=== PATIENT | female | born 1980 | race Caucasian/White ===

== ENCOUNTER 2022-04-08 23:08 | Emergency (ER) | payer BC, SELFPAY ==
[2022-04-08 23:10] VITALS: BP 134/92; PULSE 84; RESP 18; TEMP 36.9; O2SAT 100; BMI 45.7
--- NOTE | 2022-04-08 23:33 | HMH.EDWNDL ---
ED Disposition Clinical Impression: Laceration of finger Qualifiers: Encounter type: initial encounter Finger: index finger Damage to nail status: without damage Foreign body presence: without foreign body Laterality: right Qualified Code(s): S61.210A - Laceration without foreign body of right index finger without damage to nail, initial encounter Disposition: Home, Self-Care Condition on Discharge: Good Instructions: DI for Laceration Repair Additional Instructions: sutures out 10-12 days and recheck if needed prior and may need hand surg Prescriptions: cephALEXin [cephALEXin 500mg capsule*] 500 mg PO TID #30 cap Transmission Status: Pending to [employer] #[id number] - Critical Care Critical Care Time: No Attestation: On , the high probability of a clinically significant, sudden or life threatening deterioration of the following system(s) required my full and direct attention, intervention and personal management. The time I documented below is in addition to time spent performing reported procedures but includes the following listed in this critical care notation. Medical Decision Making - Medical Records Medical records reviewed: Yes: I reviewed the patient's medical records. - Jeremy Inquiry Pt receiving controlled substance: No Vital Signs: 04/08/22 23:10 Temperature 98.4 F Temperature Source Oral Pulse Rate [Right] 84 Respiratory Rate 18 Blood Pressure [Right Arm] 134/92 H Blood Pressure Mean [Right Arm] 106 02 Sat by Pulse Oximetry 100 Oxygen Delivery Method Room Air Wound/Laceration HPI - General Chief Complaint: Wound/Laceration Stated Complaint: AO 04/08/22 Laceration Right Index finger Time Seen by Provider: 04/08/22 23:34 Mode of Arrival: Ambulatory Source of Information: Patient, Spouse, Medical Record Limitations: No Limitations Description of Symptoms (Recalled from ER Triage Doc. by RN): pt arrived with right index finger in compression wrap after she states she grated off the knuckle with a cheese grater. bleeding uncontrolled - History of Present Illness HPI narrative: lac rt index finger tonight Onset (ago): hour(s) Extremity Location: Right: hand Place: home Patient tetanus UTD: No Context: sharp object use Associated symptoms: none - Related Data Previous Rx's Medication Instructions Recorded cephALEXin [cephALEXin 500mg 500 mg PO TID #30 cap 04/09/22 capsule*] Allergies Allergy/AdvReac Type Severity Reaction Status Date / Time No Known Allergies Allergy Verified 04/08/22 23:35 [facility] History - Hepatitis A Screen Attestation statement:: This patient has been screened for Hepatitis A risk factors. I have reviewed the patient's past medical history: Yes ROS Obtained: Yes All systems reviewed & no additional complaints - Constitutional Constitutional: Denies fever(s) - Eyes Eyes: Denies change in vision - ENT Ears, Nose, Mouth, and Throat: Denies sore throat - Cardiovascular Cardiovascular: Denies chest pain - Respiratory Respiratory: Denies shortness of breath - Gastrointestinal Gastrointestingal: Denies: abdominal pain - Genitourinary Female Genitourinary: Denies hematuria - Musculoskeletal Musculoskeletal: Denies joint pain, Denies joint swelling - Integumentary/Breasts Skin/Breast: Reports as per HPI, Denies rash - Neurologic Neurologic: Reports other (laceration) Physical Exam - General General appearance: alert - Head Head exam: normocephalic - Eye Eye exam: Present: PERRL, EOMI - ENT ENT exam: Present: mucous membranes moist - Neck Neck exam: Present: trachea midline - Respiratory Respiratory exam: Absent: respiratory distress - Cardiovascular Cardiovascular exam: Present: regular rate - Abdominal Exam Abdominal exam: Present: soft - Extremities Exam Extremities exam: Present: full ROM - Neurological Exam Neurological exam: Present: alert, CN II-XII intact - Psychiatric
[2022-04-09 00:32] VITALS: BP 134/92; PULSE 84; RESP 16; TEMP 36.8; O2SAT 98
== END 2022-04-09 00:37 | disposition home or self-care (01) ==
PROVIDERS: Emergency Provider Emergency Medicine; PCP Internal Medicine
DX: S61.210A Laceration without foreign body of right index finger without damage to nail, initial encounter (principal); W27.4XXA Contact with kitchen utensil, initial encounter; Z23 Encounter for immunization
CPT/HCPCS: 64450; 90471; 90714; 99284

== ENCOUNTER 2022-10-15 13:14 | Emergency (ER) | payer BC, SELFPAY ==
[2022-10-15 13:28] VITALS: BP 152/108; PULSE 78; RESP 17; TEMP 36.6; O2SAT 97; BMI 45.7
--- NOTE | 2022-10-15 13:44 | PC.NURSE ---
DR. CUEVAS AT BEDSIDE
--- NOTE | 2022-10-15 13:48 | XR_ITS ---
FINAL REPORT CLINICAL HISTORY: lightheaded FINDINGS: PORTABLE CHEST The heart is normal in size. The mediastinum is unremarkable. The lungs are clear. There is no pneumothorax. IMPRESSION: No acute process. Reviewed, Interpreted and Dictated by Brenda Buckley MD Transcribed by Tamara Link Authenticated and [facility]
--- NOTE | 2022-10-15 13:50 | HMH.EDGENADL ---
Discharge Plan Disposition Chief Complaint: Dizziness Prescriptions Prescriptions: No Action cephalexin 500 MG capsule 500 mg PO TID Qty: 30 0RF Discharge ED Provider: Will Packer General Adult HPI General Chief complaint: Dizziness Stated complaint: dizzy Time Seen by Provider: 10/15/22 13:42 Mode of Arrival: EMS Source of Information: Patient Limitations: No Limitations Description of Symptoms (Recalled from ER Triage Doc. by RN): PT BROUGHT IN VIA EMS FOR DIZZINESS WHILE DRIVING, PT STATES SHE WAS LIGHTHEADED WHILE DRIVING, PULLED OVER AND CALLED EMS. PT HAS BEEN TAKING OTC MEDS FOR CONGESTION History of Present Illness HPI narrative: Patient presents complaining of feeling lightheaded that began while she was driving shortly prior to ED presentation. She denies weakness she denies chest pain or headache or dyspnea. She has been taking zani-bug-zhfvcry medications recently for URI symptoms. Is been no recent fever. Denies vomiting or diarrhea she denies hematuria dysuria. Related Data Previous Rx's Medication Instructions Recorded cephalexin 500 mg capsule 500 mg PO TID #30 caps 04/09/22 Allergies Allergy/AdvReac Type Severity Reaction Status Date / Time No Known Allergies Allergy Verified 04/08/22 23:35 [facility] Social History Smoking Status: Never smoker ROS Obtained: Yes All systems reviewed & no additional complaints except as documented Physical Exam General General appearance: alert and in no apparent distress Head Head exam: atraumatic, normocephalic and normal inspection Eye Eye exam: Present normal appearance, PERRL and EOMI ENT ENT exam: Present normal exam, normal oropharynx, mucous membranes moist, TM's normal bilaterally and normal external ear exam Neck Neck exam: Present normal inspection, full ROM and trachea midline; Absent meningismus or lymphadenopathy Chest Chest inspection: Present normal inspection and symmetric chest wall rise; Absent tenderness Respiratory Respiratory exam: Present normal lung sounds bilaterally; Absent respiratory distress Cardiovascular Cardiovascular exam: Present regular rate and normal rhythm; Absent JVD Abdominal Exam Abdominal exam: Present soft and normal bowel sounds; Absent distention, tenderness or guarding Extremities Exam Extremities exam: Present normal inspection, full ROM and normal capillary refill; Absent calf tenderness Back Exam Back exam: Present normal inspection; Absent tenderness Neurological Exam Neurological exam: Present alert and oriented X3 Psychiatric Psychiatric exam: Present normal affect and normal mood Skin Skin exam: Present warm, dry, intact and normal color Lymphatic Lymphatic Findings: no adenopathy Medical Decision Making Medical Records Medical records reviewed: Yes I reviewed the patient's medical records. Jeremy Inquiry Pt receiving controlled substance: No Vital Signs: 10/15/22 13:28 Temperature 97.9 F Temperature Source Oral Pulse Rate [Radial] 78 Respiratory Rate 17 Blood Pressure [Right Arm] 152/108 H Blood Pressure Mean [Right Arm] 122 Blood Pressure Source [Right Arm] Automatic Cuff Blood Pressure Position [Right Arm] Sitting 02 Sat by Pulse Oximetry 97 Oxygen Delivery Method Room Air Orders (Tests/Meds): ORDERS Category Date Time Status CXR --portable [XR chest portable] Stat Exams 10/15/22 13:48 Ordered CBC w/Auto Diff [Complete Blood Count Auto Diff] Stat Lab 10/15/22 13:48 Ordered CMP [Comprehensive Metabolic Panel] Stat Lab 10/15/22 13:48 Ordered POC Glucose,Bedside Stat Lab 10/15/22 13:48 Ordered Thyroid Panel Stat Lab 10/15/22 13:48 Ordered Trop I [Troponin I] Stat Lab 10/15/22 13:48 Ordered Troponin I Q3H Lab 10/15/22 17:00 Ordered Troponin I Q3H Lab 10/15/22 20:00 Ordered Critical Care Time Critical Care Time Critical Care Time: No Attestation: On , the high probability of a clinically sign
--- NOTE | 2022-10-15 13:55 | PC.NURSE ---
XR AT BEDSIDE
[2022-10-15 14:00] VITALS: BP 143/97; PULSE 82; O2SAT 98
--- NOTE | 2022-10-15 14:00 | PC.NURSE ---
pt requesting water. Dr. Ochoa villavicencio'd that. She has no other needs at this time.
--- NOTE | 2022-10-15 14:19 | ECG_ITS ---
APPROVED REPORT Exam: Resting ECG HR:83 bpm ECG Measurements Heart Rate 83 AXES QRSd 90 QRS 65 QT 378 T 36 QTc 417 Conclusion NSR with short PA interval NONSPECIFIC T-WAVE ABNORMALITY ABNORMAL RHYTHM ECG UNCONFIRMED REPORT Electronically signed by : Papito Deleon MD 10/15/2022 21:08:47
[2022-10-15 14:24] LABS: Basophils # 0.1 K/mm3 (0-0.2); Basophils % 1.1 % (0.1-2.0); Eosinophils # 0.1 K/mm3 (0.0-0.4); Eosinophils % 1.4 % (0.1-12.0); Hematocrit 45.1 % (37.0-47.0); Hemoglobin 14.4 g/dL (12.2-16.2); Lymphocytes # 1.7 K/mm3 (0.7-4.5); Lymphocytes % 19.7 % (10-50); Mean Corpuscular HGB Conc 31.9 g/dL (31.8-35.4); Mean Corpuscular Hemoglobin 25.9 pg (27.0-31.2); Mean Corpuscular Volume 81.4 fl (81-99); Mean Platelet Volume 6.8 fl (7.4-10.4); Monocytes # 0.4 K/mm3 (0.1-1.0); Monocytes % 4.9 % (1.7-9.3); Neutrophils # 6.2 K/mm3 (1.8-7.8); Platelet Count 365 K/mm3 (142-424); Red Blood Count 5.54 M/mm3 (4.20-5.40); Red Cell Distribution Width 14.2 % (11.5-17.5); White Blood Count 8.5 K/mm3 (4.8-10.8)
[2022-10-15 14:28] LABS: Chloride 100 mmol/L (98-107); Potassium 4.4 mmoL/L (3.5-5.1); Sodium 138 mmol/L (136-145)
[2022-10-15 14:31] LABS: Alanine Aminotransferase 27 U/L (12-78); Albumin Level 4.7 g/dl (3.5-5.0); Albumin/Globulin Ratio 1.3 (1.1-1.8); Alkaline Phosphatase 127 U/L (38-126); Anion Gap 9.4 mEq/L (5-15); Aspartate Amino Transferase 33 U/L (14-36); Bilirubin,Total 0.3 mg/dl (0.2-1.3); Blood Urea Nitrogen 19 mg/dl (7-17); Calcium 9.8 mg/dl (8.4-10.2); Carbon Dioxide 33 mmol/L (22.0-30.0); Creatinine Clearance Estimated 84 mL/min (50-200); Estimated Glomerular Filt Rate 93 ml/min (>60); GFR (African American) 112 ML/MIN (>60); Globulin 3.7 g/dL (1.3-3.2); Glucose 90 mg/dl (74-100); Total Protein,Serum 8.4 g/dl (6.3-8.2)
[2022-10-15 14:49] LABS: Triiodothryronine (T3) Uptake 33 % (23.5-40.5); Troponin I < 0.01 ng/ml (0.00-0.034)
[2022-10-15 14:50] LABS: Free Thyroxine Index 4.4 ug/dL (5.93-13.13); T4 (Thyroxine) 13.2 ug/dl (5.53-11.0)
--- NOTE | 2022-10-15 15:02 | PC.NURSE ---
DR. CUEVAS AT BEDSIDE TO DISCUSS POC WITH PT AND FAMILY
[2022-10-15 15:03] LABS: Thyroid Stimulating Hormone 5.18 uIU/mL (0.465-4.68)
[2022-10-15 15:25] LABS: D-Dimer 0.61 ug/mL (0.0-0.5)
--- NOTE | 2022-10-15 15:40 | CT_ITS ---
PROCEDURE INFORMATION: Exam: CT Head Without Contrast Exam date and time: 10/15/2022 4:20 PM Age: 42 years old Clinical indication: Dizziness; Additional info: Dizzy TECHNIQUE: Imaging protocol: Computed tomography of the head without contrast. Radiation optimization: All CT scans at this facility use at least one of these dose optimization techniques: automated exposure control; mA and/or kV adjustment per patient size (includes targeted exams where dose is matched to clinical indication); or iterative reconstruction. COMPARISON: No relevant prior studies available. FINDINGS: Brain: Normal. No hemorrhage. Unremarkable white matter. No mass effect. Cerebral ventricles: No ventriculomegaly. Paranasal sinuses: Mild mucoperiosteal thickening of the paranasal sinuses. Mastoid air cells: Visualized mastoid air cells are well aerated. Bones/joints: Unremarkable. No acute fracture. Soft tissues: Unremarkable. IMPRESSION: Mild mucoperiosteal thickening of the paranasal sinuses but no evidence of acute intracranial pathology.
--- NOTE | 2022-10-15 15:40 | CT_ITS ---
PROCEDURE INFORMATION: Exam: CTA Chest With Contrast Exam date and time: 10/15/2022 4:24 PM Age: 42 years old Clinical indication: Other: Elevated d-dimer and troponin; Additional info: Dizzy TECHNIQUE: Imaging protocol: Computed tomographic angiography of the chest with contrast. 3D rendering (Not supervised by radiologist): MIP and/or 3D reconstructed images were created by the technologist. Radiation optimization: All CT scans at this facility use at least one of these dose optimization techniques: automated exposure control; mA and/or kV adjustment per patient size (includes targeted exams where dose is matched to clinical indication); or iterative reconstruction. Contrast material: ISOVUE; Contrast volume: 70 ml; Contrast route: INTRAVENOUS (IV); COMPARISON: CR XR CHEST PORTABLE 10/15/2022 2:07 PM FINDINGS: Pulmonary arteries: Pulmonary vasculature is adequately opacified without filling defects or other evidence of acute pulmonary embolism. Aorta: Unremarkable. No aortic aneurysm. No aortic dissection. Lungs: Paragraphs lung volumes mildly decreased due to body habitus. There are mild hypoventilatory changes at the lung bases. Pleural spaces: Unremarkable. No pneumothorax. No pleural effusion. Heart: Heart is borderline enlarged. No significant coronary artery calcifications. Lymph nodes: Unremarkable. No enlarged lymph nodes. Bones/joints: Unremarkable. No acute fracture. Soft tissues: Unremarkable. IMPRESSION: Negative CT angiogram of the chest. No evidence of acute pulmonary embolism.
[2022-10-15 16:01] LABS: HCG Qualitative, Serum Negative (Negative)
--- NOTE | 2022-10-15 16:20 | PC.NURSE ---
Pt to CT
--- NOTE | 2022-10-15 17:19 | PC.NURSE ---
Rounded on pt at this time. Updated pt and SO that CT results were not back yet. PT agreeable with POC and has no new needs.
--- NOTE | 2022-10-15 17:34 | PC.NURSE ---
ED MD AT BEDSIDE TO DISCUSS POC AND DISCHARGE
[2022-10-15 17:35] VITALS: BP 132/85; PULSE 80; RESP 17; TEMP 36.7; O2SAT 98
== END 2022-10-15 17:30 | disposition home or self-care (01) ==
PROVIDERS: Emergency Provider Emergency Medicine; PCP Internal Medicine
DX: R42 Dizziness and giddiness (principal); R01.1 Cardiac murmur, unspecified
CPT/HCPCS: 70450; 71045; 71275; 80053; 84436; 84443; 84479; 84484; 84703; 85025; 85378; 93005; 99285; Q9967

== ENCOUNTER 2023-11-18 19:59 | Observation (INO) | payer BC, SELFPAY ==
[2023-11-18 20:00] VITALS: BP 140/92; PULSE 98; RESP 17; TEMP 36.7; O2SAT 99; BMI 43.9
--- OUTSIDE RECORDS SUMMARY | 2023-11-18 20:06 | XMS_ITS | Patient Health Record ---
Author Name Unknown Organization [facility] Address [address] [place] [address] Care Team Providers Care [employer] Carpenter Name Role Phone Sherly Ramachandran Primary Care Provider Unavailabl e ALLERGIES Allergen (clinical drug ingredient) Drug/Non Drug Allergy documented on EMR Reaction Allergy Type Onset Date Status No Known Drug Allergy Unknown Drug Allergy Active REASON FOR REFERRAL No Information MEDICATIONS Medication SIG (Take, Route, Frequency, Duration) Notes Start Date End Date Status Synthroid Active Atorvastatin Calcium Active predniSONE 10 MG Day 1= 6 tab(s), Day 2 = 5 tab(s), Day 3 = 4tab(s), Day 4 = 3 tab(s), Day 5 = 2 tab(s), Day 6 = 1 tab orally once a day for 6 day(s) 03/03/2019 Not-Taking Wellbutrin SR Active Dexbrompheniramine-Pheny leph 2-10 MG 5 ml orally 4 times a day for 10 days 03/03/2019 Not-Taking Azithromycin 250 MG 2 tablets on the day, then 1 tablet daily for 4 days orally once a day for 5 days 03/03/2019 Not-Taking Fluticasone Propionate 50 MCG/ACT 50 mcg intranasally once a day for 30 day(s) 03/03/2019 Not-Taking IMMUNIZATIONS Vaccine Route Administration Date Status Comme [facility] z2022 FluBLOK Quad PFS (0.5m L Admin) 18 y/o & older Unknown 10/19/2022 Administered SOCIAL HISTORY Sex Assigned At : Social History Observation Description Sex Assigned At Unknown PROBLEMS Problem Type ICD Code Onset Dates Problem Status W/U Status Risk SNOMED Code Notes Problem Sinusitis (J32.9) Active confirmed Sinusitis (24778864) PLAN OF TREATMENT Pending Test Test Name Order Date Urinalysis(IH) 05/30/2010 Insurance Providers Payer Name Payer Address Payer Phone Subscriber Number Group Number Insured Name Patient Relationship to Insured Coverage Start Date Coverage End Date [employer] [facility] [address] [place] [address] [id number] Judit Kelly Self - patient is the insured MEDICATIONS ADMINISTERED Medication Instructions Date of Administration Dosage Notes Kenalog 40 (40mg Admin) 05/26/2018 1 mL MEDICAL (GENERAL) HISTORY Medical History History ICD Code None Surgical History Surgery Date(Month/Year) none Hospitalization History Reason Date(Month/Year) concussion at age 12yrs
[2023-11-18 20:30] VITALS: BP 131/86; PULSE 95; O2SAT 98
[2023-11-18 21:01] VITALS: BP 115/60; PULSE 87; O2SAT 97
--- NOTE | 2023-11-18 21:12 | US_ITS ---
PROCEDURE INFORMATION: Exam: US , Transvaginal Exam date and time: 11/18/2023 10:56 PM Age: 43 years old Clinical indication: Lmp or gestational age (in weeks): 10w; Antepartum complications; ; Patient HX: [facility] 13,000=--crmaping and bleeding today; Additional info: Unknown preg location/vag bleeding LABS AND CLINICAL REPORTS: Last menstrual period start date: 09/11/2023 Gestational age (Established): 9 w 5 d Estimated due date (Established): 06/17/2024 TECHNIQUE: Imaging protocol: Real-time transvaginal obstetrical ultrasound of the maternal pelvis with image documentation. Transvaginal imaging was used for better evaluation of the fetus, adnexa, and/or cervix. COMPARISON: No relevant prior studies available. FINDINGS: Gestation: No intrauterine gestational sac, pole or yolk sac identified. Large amount of active bleeding and clot within the endometrium consistent with missed . MATERNAL: Uterus: Uterine fibroid. Right ovary/adnexa: Right ovary measures 3.45 cm x 2.22 cm x 3.29 cm. Right ovarian volume is 13.19 mL. Right ovary shows normal vascularity. No mass. Left ovary/adnexa: Left ovary measures 3.85 cm x 3.17 cm x 2.38 cm. Left ovarian volume is 15.21 mL. Left ovary shows normal vascularity. No mass. Intraperitoneal space: No free fluid. IMPRESSION: 1. Within the endometrial canal there is a large amount of active bleeding and clot consistent with missed . No intrauterine gestational sac, pole or yolk sac. 2. No free fluid. 3. Ovaries normal
--- NOTE | 2023-11-18 21:12 | ED_ITS ---
Discharge Plan Disposition Patient Disposition: Admitted Chief Complaint: Vaginal Bleeding Prescriptions Prescriptions: No Action cephalexin 500 MG capsule 500 mg PO TID Qty: 30 0RF Clinical Impressions Clinical Impression: Missed , Vaginal bleeding, Pelvic pain Discharge ED Provider: Mason Zamora General Adult HPI <Mason Zamora MD - Last Filed: 11/18/23 22:54> General Chief complaint: Vaginal Bleeding Stated complaint: 10 weeks preg, vaginal bleeding Time Seen by Provider: 11/18/23 20:21 Mode of Arrival: Ambulatory Source of Information: Patient Limitations: No Limitations Description of Symptoms (Recalled from ER Triage Doc. by RN): Patient reports cramping / that started this evening. Patient is approximately 10 weeks . Seen by OB on November 04 with a planned follow up ultrasound on Nov 20. Patient reports bright red bleeding that is moderate requiring the use of a pad at this time. Patient states she has had a misscarriage before and came in due to the pain at this time. History of Present Illness HPI narrative: Patient is a 43-year-old female EGA 10 weeks who presents emergency department for evaluation of vaginal bleeding. Onset was acute, earlier today, passage of clots. She was seen by an OB in early October with [facility] who had concerns that growth was not progressing as expected. She does have crampy lower abdominal pain with the passage of these clots. No other acute complaints at this time. Related Data Previous Rx's Medication Instructions Recorded cephalexin 500 mg capsule 500 mg PO TID #30 caps 04/09/22 Allergies Allergy/AdvReac Type Severity Reaction Status Date / Time No Known Allergies Allergy Verified 04/08/22 23:35 PFSH <Mason Zamora MD - Last Filed: 11/18/23 22:54> [facility] Disclaimer: The information contained in this section may have been updated after the patient was seen, as this information can be updated by other users. Social History (Updated 11/18/23 @ 22:54 by Mason Zamora MD) Smoking Status: Never smoker alcohol intake: never current occupational status: other Travel in the last 8 weeks: None <Mason Zamora MD - Last Filed: 11/18/23 22:54> ROS Obtained: Yes Systems reviewed as appropriate & no additional complaints except as documented Physical Exam <Mason Zamora MD - Last Filed: 11/18/23 22:54> General General appearance: alert and in no apparent distress Head Head exam: atraumatic and normocephalic Eye Eye exam: Present PERRL and EOMI ENT ENT exam: Present mucous membranes moist Neck Neck exam: Present normal inspection Chest Chest inspection: Present normal inspection and symmetric chest wall rise Respiratory Respiratory exam: Absent respiratory distress Cardiovascular Cardiovascular exam: Present regular rate and normal rhythm Abdominal Exam Abdominal exam: Present soft; Absent tenderness Extremities Exam Extremities exam: Present normal inspection Neurological Exam Neurological exam: Present alert Psychiatric Psychiatric exam: Present normal affect Skin Skin exam: Present warm and dry Medical Decision Making <Mason Zamora MD - Last Filed: 11/18/23 22:54> Jeremy Inquiry Pt receiving controlled substance: No Vital Signs: 11/18/23 20:00 11/18/23 20:30 11/18/23 21:01 Temperature 98.0 F Temperature Source Oral Pulse Rate 95 H 87 Pulse Rate [Left Radial] 98 H Respiratory Rate 17 Blood Pressure 131/86 115/60 Blood Pressure [Right Arm] 140/92 H Blood Pressure Mean Blood Pressure Mean [Right Arm] 108 Blood Pressure Source [Right Arm] Automatic Cuff Blood Pressure Position [Right Arm] Sitting 02 Sat by Pulse Oximetry 99 98 97 Oxygen Delivery Method Room Air Room Air 11/19/23 01:12 Temperature Temperature Source Pulse Rate 77 Pulse Rate [Left Radial] Respiratory Rate 20 Blood Pressure 141/89 H Blood Pressure [Right Arm] Blood Pressure Mean 101 Blood Pressure Mean [Right Arm] Blood Pressure Source [Right Arm] Blood Pressure Position [Right Arm] 02 Sat by Pulse Oximetry 98 Oxygen Delivery Method Room Air Lab Data Lab Results 11/18/23 21:20: WBC 7.7, RBC 5.51 H, Hgb 14.6, Hct 44.2, MCV 80.2 L, MCH 26.5 L, MCHC 33.1, RDW 15.1, Plt Count 326, MPV 7.1 L, Neut % (Auto) 70.0, Lymph % (Auto) 22.1, [place] % (Auto) 5.6, Eos % (Auto) 1.4, Baso % (Auto) 0.9, Neut # (Auto) 5.4, Lymph # (Auto) 1.7, [place] # (Auto) 0.4, Eos # (Auto) 0.1, Baso # (Auto) 0.1, Sodium 139, Potassium 4.5, Chloride 105, Carbon Dioxide 22, Anion Gap 16.5 H, BUN 14, Creatinine 1.00, Estimated Creat Clear 59, Estimated GFR 61, Est GFR ( Amer) 74, Glucose 86, Calcium 9.6, Total Bilirubin 0.5, AST 43 H, ALT 29, Alkaline Phosphatase 111, Total Protein 8.3 H, Albumin 4.9, Globulin 3.4 H, Albumin/Globulin Ratio 1.4, HCG, Quant [id number] H 11/18/23 21:30: Urine Color [place], Urine Appearance Sl cloudy, Urine pH 5.5, Ur Specific [place] 1.010, Urine Protein 1+, Urine Glucose (UA) Negative, Urine Ketones Negative, Urine Blood 3+, Urine Nitrate Negative, Urine Bilirubin Negative, Urine Urobilinogen 0.2, Ur Leukocyte Esterase Negative, Urine RBC Tntc, Urine WBC None, Ur Squamous Epith Cells 3-5, Urine Bacteria None 11/18/23 21:20 11/18/23 21:20 Orders (Tests/Meds): ED MEDICATIONS Discontinued Medications Generic Name Dose Route Start Last Admin Trade Name Freq PRN Reason Stop Dose Admin Acetaminophen 1,000 mg 11/19/23 00:37 11/19/23 00:42 Acetaminophen 500mg Tab PO 11/19/23 00:38 1,000 mg ONCE ONE Administration Ketorolac Tromethamine 15 mg 11/19/23 01:48 Ketorolac 30mg/Ml Vial IV 11/19/23 01:49 ONCE ONE Morphine Sulfate 4 mg 11/19/23 01:48 Morphine 4mg/Ml Syringe IV 11/19/23 01:49 ONCE ONE Oxycodone HCl 5 mg 11/19/23 01:08 11/19/23 01:24 Oxycodone 5mg Immediate Release Tablet PO 11/19/23 01:09 5 mg ONCE ONE Administration ORDERS Category Date Time Status CBC w/Auto Diff [Complete Blood Count Auto Diff] Stat Lab 11/18/23 21:20 Completed CMP [Comprehensive Metabolic Panel] Stat Lab 11/18/23 21:20 Completed HCG,Quantitative Stat Lab 11/18/23 21:20 Completed UA [Urinalysis and Microscopic] Stat Lab 11/18/23 21:30 Completed US OB transvaginal Stat Ultrasound 11/18/23 21:12 Completed Medical Decision Narrative: In summary patient is a 43-year-old female with past medical history described above presents emergency department for evaluation of vaginal bleeding. Patient is hemodynamically stable nontoxic-appearing upon arrival, afebrile. Differential diagnosis includes threatened , spontaneous miscarriage, among others. Patient is O+ and does not require RhoGAM. Workup was conducted with hematologic labs, urinalysis, quant hCG followed by transvaginal ultrasound for location. Initial workup reviewed by me, hematologic labs show no leukocytosis, no acute anemia, hCG 13,200, urinalysis shows red blood cells in the setting of vaginal bleeding, interpreted by me and not consistent with infection. Transvaginal ultrasound was pending at time of transition of care to the oncoming physician, Dr. Calabrese. <Glory Calabrese MD - Last Filed: 11/19/23 02:00> Vital Signs: 11/18/23 20:00 11/18/23 20:30 11/18/23 21:01 Temperature 98.0 F Temperature Source Oral Pulse Rate 95 H 87 Pulse Rate [Left Radial] 98 H Respiratory Rate 17 Blood Pressure 131/86 115/60 Blood Pressure [Right Arm] 140/92 H Blood Pressure Mean Blood Pressure Mean [Right Arm] 108 Blood Pressure Source [Right Arm] Automatic Cuff Blood Pressure Position [Right Arm] Sitting 02 Sat by Pulse Oximetry 99 98 97 Oxygen Delivery Method Room Air Room Air 11/19/23 01:12 Temperature Temperature Source Pulse Rate 77 Pulse Rate [Left Radial] Respiratory Rate 20 Blood Pressure 141/89 H Blood Pressure [Right Arm] Blood Pressure Mean 101 Blood Pressure Mean [Right Arm] Blood Pressure Source [Right Arm] Blood Pressure Position [Right Arm] 02 Sat by Pulse Oximetry 98 Oxygen Delivery Method Room Air Lab Data Lab Results 11/18/23 21:20: WBC 7.7, RBC 5.51 H, Hgb 14.6, Hct 44.2, MCV 80.2 L, MCH 26.5 L, MCHC 33.1, RDW 15.1, Plt Count 326, MPV 7.1 L, Neut % (Auto) 70.0, Lymph % (Auto) 22.1, [place] % (Auto) 5.6, Eos % (Auto) 1.4, Baso % (Auto) 0.9, Neut # (Auto) 5.4, Lymph # (Auto) 1.7, [place] # (Auto) 0.4, Eos # (Auto) 0.1, Baso # (Auto) 0.1, Sodium 139, Potassium 4.5, Chloride 105, Carbon Dioxide 22, Anion Gap 16.5 H, BUN 14, Creatinine 1.00, Estimated Creat Clear 59, Estimated GFR 61, Est GFR ( Amer) 74, Glucose 86, Calcium 9.6, Total Bilirubin 0.5, AST 43 H, ALT 29, Alkaline Phosphatase 111, Total Protein 8.3 H, Albumin 4.9, Globulin 3.4 H, Albumin/Globulin Ratio 1.4, HCG, Quant [id number] H 11/18/23 21:30: Urine Color [place], Urine Appearance Sl cloudy, Urine pH 5.5, Ur Specific [place] 1.010, Urine Protein 1+, Urine Glucose (UA) Negative, Urine Ketones Negative, Urine Blood 3+, Urine Nitrate Negative, Urine Bilirubin Negative, Urine Urobilinogen 0.2, Ur Leukocyte Esterase Negative, Urine RBC Tntc, Urine WBC None, Ur Squamous Epith Cells 3-5, Urine Bacteria None Orders (Tests/Meds): ED MEDICATIONS Discontinued Medications Generic Name Dose Route Start Last Admin Trade Name Freq PRN Reason Stop Dose Admin Acetaminophen 1,000 mg 11/19/23 00:37 11/19/23 00:42 Acetaminophen 500mg Tab PO 11/19/23 00:38 1,000 mg ONCE ONE Administration Ketorolac Tromethamine 15 mg 11/19/23 01:48 Ketorolac 30mg/Ml Vial IV 11/19/23 01:49 ONCE ONE Morphine Sulfate 4 mg 11/19/23 01:48 Morphine 4mg/Ml Syringe IV 11/19/23 01:49 ONCE ONE Oxycodone HCl 5 mg 11/19/23 01:08 11/19/23 01:24 Oxycodone 5mg Immediate Release Tablet PO 11/19/23 01:09 5 mg ONCE ONE Administration ORDERS Category Date Time Status CBC w/Auto Diff [Complete Blood Count Auto Diff] Stat Lab 11/18/23 21:20 Completed CMP [Comprehensive Metabolic Panel] Stat Lab 11/18/23 21:20 Completed HCG,Quantitative Stat Lab 11/18/23 21:20 Completed UA [Urinalysis and Microscopic] Stat Lab 11/18/23 21:30 Completed US OB transvaginal Stat Ultrasound 11/18/23 21:12 Completed Medical Decision Narrative: In summary patient is a 43-year-old female with past medical history described above presents emergency department for evaluation of vaginal bleeding. Patient is hemodynamically stable nontoxic-appearing upon arrival, afebrile. Differential diagnosis includes threatened , spontaneous miscarriage, among others. Patient is O+ and does not require RhoGAM. Workup was conducted with hematologic labs, urinalysis, quant hCG followed by transvaginal ultrasound for location. Initial workup reviewed by me, hematologic labs show no leukocytosis, no acute anemia, hCG 13,200, urinalysis shows red blood cells in the setting of vaginal bleeding, interpreted by me and not consistent with infection. Transvaginal ultrasound was pending at time of transition of care to the oncoming physician, Dr. Calabrese. Calabrese: Upon my assumption of care patient is in ultrasound. After ultrasound I was able to assess the patient and she is having pain. She received Tylenol. Patient is hemodynamically stable, no hypotension. She is having lower abdomi nal pain pelvic cramping. I performed external vaginal exam which demonstrates vaginal bleeding with oozing, patient has saturated a maxi pad in 2 hours while passing small clots. She does not have any brisk bleeding from the vagina at this time. I agree with primary provider's assessment and plan and have reviewed the labs. Transvaginal ultrasound did not demonstrate gestational sac on my personal interpretation. Radiology read states there is active bleeding and clot but no gestational sac, pole, or yolk sac. See radiology read for full interpretation. On reassessment Tylenol did not improve the patient's pain. She then received oral oxycodone without improvement. Therefore an IV was placed to administer IV pain medications. Patient is receiving IV morphine and Toradol. Due to intractable pain and persistent vaginal bleeding I discussed this case with Dr. Hansen with OB. At this time he is recommending admission. He also recommended Methergine 0.2 mg which I have administered at his recommendation. Patient is amenable to the plan for admission. She will be admitted to Dr. Hansen. Critical Care <Mason Zamora MD - Last Filed: 11/18/23 22:54> Critical Care Time Critical Care Time: No
[2023-11-18 21:29] LABS: Basophils # 0.1 K/mm3 (0-0.2); Basophils % 0.9 % (0.1-2.0); Eosinophils # 0.1 K/mm3 (0.0-0.4); Eosinophils % 1.4 % (0.1-12.0); Hematocrit 44.2 % (37.0-47.0); Hemoglobin 14.6 g/dL (12.2-16.2); Lymphocytes # 1.7 K/mm3 (0.7-4.5); Lymphocytes % 22.1 % (10-50); Mean Corpuscular HGB Conc 33.1 g/dL (31.8-35.4); Mean Corpuscular Hemoglobin 26.5 pg (27.0-31.2); Mean Corpuscular Volume 80.2 fl (81-99); Mean Platelet Volume 7.1 fl (7.4-10.4); Monocytes # 0.4 K/mm3 (0.1-1.0); Monocytes % 5.6 % (1.7-9.3); Neutrophils # 5.4 K/mm3 (1.8-7.8); Platelet Count 326 K/mm3 (142-424); Red Blood Count 5.51 M/mm3 (4.20-5.40); Red Cell Distribution Width 15.1 % (11.5-17.5); White Blood Count 7.7 K/mm3 (4.8-10.8)
[2023-11-18 21:36] LABS: Microscopic, Urine URINE MICROSCOPIC (MICROSCOPIC)
[2023-11-18 21:39] LABS: Chloride 105 mmol/L (98-107); Potassium 4.5 mmoL/L (3.5-5.1); Sodium 139 mmol/L (136-145)
[2023-11-18 21:42] LABS: Appearance,Urine SL CLOUDY (Clear); Bilirubin,Urine Negative (Negative); Blood, Urine 3+ (Negative); Color,Urine ORANGE (Yellow); Glucose,Urine (UA) Negative (Negative); Ketones,Urine Negative (Negative); Leukocyte Esterase,Urine Negative (Negative); Nitrate,Urine Negative (Negative); PH,Urine 5.5 (5.0-8.5); Protein,Urine 1+ (Negative); Urobilinogen,Urine 0.2 EU/dl (0.2)
[2023-11-18 21:42] LABS: Alanine Aminotransferase 29 U/L (12-78); Albumin Level 4.9 g/dl (3.5-5.0); Albumin/Globulin Ratio 1.4 (1.1-1.8); Alkaline Phosphatase 111 U/L (38-126); Anion Gap 16.5 mEq/L (5-15); Aspartate Amino Transferase 43 U/L (14-36); Bilirubin,Total 0.5 mg/dl (0.2-1.3); Blood Urea Nitrogen 14 mg/dl (7-17); Carbon Dioxide 22 mmol/L (22.0-30.0); Creatinine Clearance Estimated 59 mL/min (50-200); Estimated Glomerular Filt Rate 61 ml/min (>60); GFR (African American) 74 ML/MIN (>60); Globulin 3.4 g/dL (1.3-3.2); Total Protein,Serum 8.3 g/dl (6.3-8.2)
[2023-11-18 21:43] LABS: Calcium 9.6 mg/dl (8.4-10.2); Glucose 86 mg/dl (74-100)
[2023-11-18 22:00] LABS: RBC,Urine TNTC #/hpf (0-3)
[2023-11-18 22:24] LABS: HCG,Quantitative 13200 mIU/ml (0-5.42)
--- NOTE | 2023-11-18 22:27 | PC.NURSE ---
Contacted ultrasound for placement confirmation ultrasound.
[2023-11-19] MEDS: ACETAMINOPHEN 500MG TAB 1000 MG PO (00:42)
[2023-11-19 01:12] VITALS: BP 141/89; PULSE 77; RESP 20; O2SAT 98
[2023-11-19] MEDS: OXYCODONE 5MG IMMEDIATE RELEASE TABLET 5 MG PO (01:24)
--- NOTE | 2023-11-19 01:48 | PC.NURSE ---
paging at this time.
--- NOTE | 2023-11-19 01:49 | PC.NURSE ---
o/p with at this time.
[2023-11-19 01:50] VITALS: BP 125/86; PULSE 69; O2SAT 97
--- NOTE | 2023-11-19 01:55 | PC.NURSE ---
accepted patient at this time.
--- NOTE | 2023-11-19 01:55 | PC.NURSE ---
Called House on admission to OB per .
--- NOTE | 2023-11-19 01:56 | PC.NURSE ---
OBSERVATION ADMISSION TO 279 WITH DX OF MISSED AND PELVIC PAIN TO SERVICE OF DR. ISABEL.
[2023-11-19] MEDS: KETOROLAC 30MG/ML VIAL 15 MG IV (02:04)
[2023-11-19] MEDS: MORPHINE 4MG/ML SYRINGE 4 MG IV (02:04)
[2023-11-19 02:16] VITALS: BP 125/86; PULSE 69; RESP 18; TEMP 36.7; O2SAT 96
[2023-11-19] MEDS: METHYLERGONOVINE MALEATE 0.2 MG TABLET 0.200000000000000011 MG PO (03:05)
[2023-11-19 04:00] VITALS: BP 123/53; PULSE 71; RESP 18; TEMP 36.7; O2SAT 100; O2SAT 99
[2023-11-19 07:05] LABS: Basophils % 0.2 % (0.1-2.0); Eosinophils # 0.1 K/mm3 (0.0-0.4); Eosinophils % 0.9 % (0.1-12.0); Hematocrit 41.4 % (37.0-47.0); Hemoglobin 13.6 g/dL (12.2-16.2); Lymphocytes # 1.5 K/mm3 (0.7-4.5); Lymphocytes % 12.3 % (10-50); Mean Corpuscular HGB Conc 32.9 g/dL (31.8-35.4); Mean Corpuscular Hemoglobin 27.1 pg (27.0-31.2); Mean Corpuscular Volume 82.3 fl (81-99); Mean Platelet Volume 7.5 fl (7.4-10.4); Monocytes # 0.4 K/mm3 (0.1-1.0); Monocytes % 3.4 % (1.7-9.3); Neutrophils # 9.9 K/mm3 (1.8-7.8); Neutrophils % 83.1 % (37.0-80.0); Platelet Count 297 K/mm3 (142-424); Red Blood Count 5.03 M/mm3 (4.20-5.40); Red Cell Distribution Width 15.3 % (11.5-17.5); White Blood Count 11.9 K/mm3 (4.8-10.8)
--- NOTE | 2023-11-19 07:37 | EXP.HPDC ---
General Admission date:: 11/19/23 *Admission Date: 11/19/23 *Chief complaint: Severe abdominal pain, missed *History of present illness: Patient is a 43-year-old female EGA 10 weeks who presents emergency department for evaluation of vaginal bleeding. Onset was acute, earlier today, passage of clots. She was seen by an OB in early October with [facility] who had concerns that growth was not progressing as expected. She does have crampy lower abdominal pain with the passage of these clots. No other acute complaints at this time. Patient reports cramping 8/10 that started this evening. Patient is approximately 10 weeks . Seen by OB on November 04 with a planned follow up ultrasound on Nov 20. Patient reports bright red bleeding that is moderate requiring the use of a pad at this time. Patient states she has had a misscarriage before and came in due to the pain at this time. [facility] Disclaimer: The information contained in this section may have been updated after the patient was seen, as this information can be updated by other users. Social History Smoking Status: Never smoker alcohol intake: never current occupational status: other Travel in the last 8 weeks: None Review of Systems Review of Systems Review of systems:: pertinent systems reviewed and negative unless documented below Exam Data for Last 24 hours Vital signs and Labs for Last 24 Hours: Temp Pulse Resp BP Pulse Ox O2 Del Method 98.1 F 71 18 123/53 L 100 Room Air 11/19/23 04:00 11/19/23 04:00 11/19/23 04:00 11/19/23 04:00 11/19/23 04:00 11/19/23 04:00 Laboratory Results - last 24 hr 11/18/23 21:20: WBC 7.7, RBC 5.51 H, Hgb 14.6, Hct 44.2, MCV 80.2 L, MCH 26.5 L, MCHC 33.1, RDW 15.1, Plt Count 326, MPV 7.1 L, Neut % (Auto) 70.0, Lymph % (Auto) 22.1, [place] % (Auto) 5.6, Eos % (Auto) 1.4, Baso % (Auto) 0.9, Neut # (Auto) 5.4, Lymph # (Auto) 1.7, [place] # (Auto) 0.4, Eos # (Auto) 0.1, Baso # (Auto) 0.1, Sodium 139, Potassium 4.5, Chloride 105, Carbon Dioxide 22, Anion Gap 16.5 H, BUN 14, Creatinine 1.00, Estimated Creat Clear 59, Estimated GFR 61, Est GFR ( Amer) 74, Glucose 86, Calcium 9.6, Total Bilirubin 0.5, AST 43 H, ALT 29, Alkaline Phosphatase 111, Total Protein 8.3 H, Albumin 4.9, Globulin 3.4 H, Albumin/Globulin Ratio 1.4, HCG, Quant [id number] H 11/18/23 21:30: Urine Color [place], Urine Appearance Sl cloudy, Urine pH 5.5, Ur Specific [place] 1.010, Urine Protein 1+, Urine Glucose (UA) Negative, Urine Ketones Negative, Urine Blood 3+, Urine Nitrate Negative, Urine Bilirubin Negative, Urine Urobilinogen 0.2, Ur Leukocyte Esterase Negative, Urine RBC Tntc, Urine WBC None, Ur Squamous Epith Cells 3-5, Urine Bacteria None 11/19/23 06:44: WBC 11.9 H D, RBC 5.03, Hgb 13.6, Hct 41.4, MCV 82.3, MCH 27.1, MCHC 32.9, RDW 15.3, Plt Count 297, MPV 7.5, Neut % (Auto) 83.1 H, Lymph % (Auto) 12.3, [place] % (Auto) 3.4, Eos % (Auto) 0.9, Baso % (Auto) 0.2, Neut # (Auto) 9.9 H, Lymph # (Auto) 1.5, [place] # (Auto) 0.4, Eos # (Auto) 0.1, Baso # (Auto) 0.0 I & O for Last 24 hours: Intake & Output 11/16/23 11/17/23 11/18/23 11/19/23 11:59 11:59 11:59 11:59 Output Total 0 / 0 Balance 0 / 0 Weight 240 lb Constitutional Constitutional: no acute distress *Routine HEENT Exam Head: Present normocephalic Eye: Present EOMI and PERRL ENT: Present mucous membranes moist *Routine Neck Exam Neck: Present supple; Absent lymphadenopathy *Routine Respiratory Exam Respiratory: Present CTA bilaterally *Routine Cardiovascular Exam Cardiovascular: Present RRR *Routine Abdominal Exam Abdominal: Present soft and normoactive bowel sounds; Absent tenderness *Routine Rectal Exam Rectal:: deferred *Routine Genitalia Exam Genitalia:: deferred *Routine Extremities Exam Extremities: Absent cyanosis, clubbing or edema *Routine Skin Exam Skin: Present warm; Absent rash *Routine Neurological Exam Neurological: Present alert and oriented X3 Meds Home Medications and Allergies Home Medications Medication Instructions Recorded Confirmed Type bupropion HCl 150 mg 24 hr tablet, 300 mg PO DAILY Mood 11/19/23 11/19/23 History extended release levothyroxine 150 mcg tablet 150 mcg PO DAILY Thyroid 11/19/23 11/19/23 History New Prescriptions to Start Prescriptions: Allergies Allergy/AdvReac Type Severity Reaction Status Date / Time No Known Allergies Allergy Verified 04/08/22 23:35 Hospital Course Hospital Course Hospital Course: She had an ultrasound that showed clots within the uterus, a 2.5 cm fibroid posteriorly and no intrauterine fetus or tissue seen. She had intractable pain and was admitted. She received Toradol overnight as well as IV morphine and this seemed to help. This morning she is doing well. She still has some vaginal bleeding but it seems to be settling. Her pain is much improved. Results Data Completed and Pending Labs on day of discharge: Labs from last 24 hours 11/19/23 11/18/23 11/18/23 06:44 21:30 21:20 WBC 11.9 H D 7.7 RBC 5.03 5.51 H Hgb 13.6 14.6 Hct 41.4 44.2 MCV 82.3 80.2 L MCH 27.1 26.5 L MCHC 32.9 33.1 RDW 15.3 15.1 Plt Count 297 326 MPV 7.5 7.1 L Neut % (Auto) 83.1 H 70.0 Lymph % (Auto) 12.3 22.1 [place] % (Auto) 3.4 5.6 Eos % (Auto) 0.9 1.4 Baso % (Auto) 0.2 0.9 Neut # (Auto) 9.9 H 5.4 Lymph # (Auto) 1.5 1.7 [place] # (Auto) 0.4 0.4 Eos # (Auto) 0.1 0.1 Baso # (Auto) 0.0 0.1 Sodium 139 Potassium 4.5 Chloride 105 Carbon Dioxide 22 Anion Gap 16.5 H BUN 14 Creatinine 1.00 Estimated Creat Clear 59 Estimated GFR 61 Est GFR ( Amer) 74 Glucose 86 Calcium 9.6 Total Bilirubin 0.5 AST 43 H ALT 29 Alkaline Phosphatase 111 Total Protein 8.3 H Albumin 4.9 Globulin 3.4 H Albumin/Globulin Ratio 1.4 HCG, Quant [id number] H Urine Color [place] Urine Appearance Sl cloudy Urine pH 5.5 Ur Specific [place] 1.010 Urine Protein 1+ Urine Glucose (UA) Negative Urine Ketones Negative Urine Blood 3+ Urine Nitrate Negative Urine Bilirubin Negative Urine Urobilinogen 0.2 Ur Leukocyte Esterase Negative Urine RBC Tntc Urine WBC None Ur Squamous Epith Cells 3-5 Urine Bacteria None DS: Diagnosis Discharge Diagnosis (1) Pelvic pain: Status: Acute Code(s): R10.2 - Pelvic and perineal pain Discharge Plan Disposition Patient Disposition: Home, Self-Care Follow up Plan Prescriptions/Medication Reconciliation: Continued levothyroxine 150 mcg tablet 150 mcg PO DAILY Patient Comments: TAKE 1 TABLET BY MOUTH EVERY DAY bupropion HCl 150 mg tablet extended release 24 hr 300 mg PO DAILY Patient Comments: TAKE 2 TABLETS BY MOUTH EVERY DAY Problem Reconciliation Problems Reviewed?: Yes Patient Discharge Instructions ACTIVITY: Limited activity DIET: continue same diet Providers Primary Care Provider: Sherly Ramachandran Admit Provider: Perez Rae Attending Provider: Perez Rae
--- NOTE | 2023-11-19 07:47 | HMH.PHAINT1 ---
Pharmacy Intervention Comments: MEDICATION RECONCILIATION COMPLETED ON PATIENT USING EXTERNAL FILL HISTORY FROM PHARMACY. -CECY LOPEZ, ALFREDOD
[2023-11-19 08:00] VITALS: BP 113/71; PULSE 97; RESP 16; TEMP 36.5; O2SAT 100
--- NOTE | 2023-11-19 08:30 | PC.NURSE ---
received report from Mercy [facility]
--- NOTE | 2023-11-19 08:58 | PC.NURSE ---
per dr michael, pt has an appointment with her regular ob tomorrow.
[2023-11-19] MEDS: KETOROLAC 10MG TABLET 10 MG PO (09:08)
== END 2023-11-19 09:20 | disposition home or self-care (01) ==
LOC: ER 20:04 → OB 11-19 02:00
PROVIDERS: Admitting Provider Nurse Practitioner Obstetrics & Gynecology; Emergency Provider Emergency Medicine; PCP Internal Medicine; Visit Provider Nurse Practitioner Obstetrics & Gynecology
DX: R10.2 Pelvic and perineal pain (principal)
CPT/HCPCS: 36415; 76817; 80053; 81001; 84702; 85025; G0378

== ENCOUNTER 2024-02-26 15:28 | Outpatient (CLI) | payer BC, SELFPAY ==
[2024-02-26 16:45] LABS: HCG,Quantitative 48 mIU/ml (0-5.42)
[2024-02-28 11:17] LABS: Progesterone 13.4 ng/mL (.)
== END 2024-02-26 23:59 | disposition home or self-care (01) ==
LOC: LAB 15:29
PROVIDERS: PCP Internal Medicine; Visit Provider Nurse Practitioner Obstetrics & Gynecology
DX: Z32.00 Encounter for pregnancy test, result unknown (principal)
CPT/HCPCS: 36415; 84144; 84702

== ENCOUNTER 2024-02-28 09:16 | Outpatient (CLI) | payer BC, SELFPAY ==
[2024-02-28 10:44] LABS: HCG,Quantitative 98 mIU/ml (0-5.42)
== END 2024-02-28 23:59 ==
LOC: LAB 09:17
PROVIDERS: PCP Internal Medicine; Visit Provider Nurse Practitioner Obstetrics & Gynecology
DX: O02.1 Missed abortion (principal)
CPT/HCPCS: 36415; 84702

== ENCOUNTER 2024-03-17 12:04 | Outpatient (CLI) | payer BC, SELFPAY ==
[2024-03-17 12:43] LABS: Basophils % 0.7 % (0.1-2.0); Eosinophils # 0.1 K/mm3 (0.0-0.4); Eosinophils % 1.4 % (0.1-12.0); Hematocrit 42.6 % (37.0-47.0); Hemoglobin 13.9 g/dL (12.2-16.2); Lymphocytes # 1.4 K/mm3 (0.7-4.5); Lymphocytes % 24.8 % (10-50); Mean Corpuscular HGB Conc 32.7 g/dL (31.8-35.4); Mean Corpuscular Hemoglobin 27.1 pg (27.0-31.2); Mean Platelet Volume 7.5 fl (7.4-10.4); Monocytes # 0.4 K/mm3 (0.1-1.0); Monocytes % 6.6 % (1.7-9.3); Neutrophils # 3.8 K/mm3 (1.8-7.8); Neutrophils % 66.5 % (37.0-80.0); Platelet Count 270 K/mm3 (142-424); Red Blood Count 5.14 M/mm3 (4.20-5.40); Red Cell Distribution Width 15.6 % (11.5-17.5); White Blood Count 5.8 K/mm3 (4.8-10.8)
[2024-03-17 13:39] LABS: Free Thyroxine Index 3.3 ug/dL (5.93-13.13); T4 (Thyroxine) 10.7 ug/dl (5.53-11.0); Triiodothryronine (T3) Uptake 31 % (23.5-40.5)
[2024-03-17 13:42] LABS: HCG,Quantitative 1248 mIU/ml (0-5.42)
[2024-03-17 13:53] LABS: Thyroid Stimulating Hormone 3.14 uIU/mL (0.465-4.68)
[2024-03-18 08:02] LABS: HCV Ab Non Reactive (Non Reactive); Hepatitis B Surface Antigen Negative (Negative)
[2024-03-18 09:12] LABS: HIV Screen 4th Generation wRfx Non Reactive (Non Reactive); Rubella Antibodies, IgG 2.13 index (Immune >0.99)
[2024-03-18 13:43] LABS: Rapid Plasma Reagin Ab Titer Non Reactive titer (NonRea<1:1)
== END 2024-03-17 23:59 | disposition home or self-care (01) ==
LOC: LAB 12:05
PROVIDERS: PCP Internal Medicine; Visit Provider Nurse Practitioner Obstetrics & Gynecology
DX: O26.891 Other specified pregnancy related conditions, first trimester (principal)
CPT/HCPCS: 36415; 84436; 84443; 84479; 84702; 85025; 86593; 86703; 86762; 86850; 87086; 87340; G0432

== ENCOUNTER 2024-03-18 10:22 | Outpatient (CLI) | payer BC, SELFPAY ==
--- NOTE | 2024-03-18 10:23 | US_ITS ---
PROCEDURE: US OB <= 14 WEEKS FETUS CLINICAL INDICATION: Viability/Dates and Bleeding in Early COMPARISON: No exams were available for comparison FINDINGS: Transvaginal sonographic images of the pelvis were obtained. From her last menstrual period she is 6weeks 5days. An intrauterine gestational sac is present without a pole. It measures 0.82 cm. It appears irregular with internal debris. heart tones are not present today. Yolk sac is not seen today. There are 2 fibroids in the uterus. There is a posterior fibroid measuring 3.8 cm x 2.8 cm x 3.3 cm. A 2nd fibroid is seen posteriorly measuring 2.9 cm x 2.4 cm x 2.3 cm. The right ovary is seen and appears normal. The left ovary is seen and appears normal. There is no fluid in the cul-de-sac. IMPRESSION: 1. Small irregular appearing gestational sac is present within the uterine cavity. 2. No fetus or heart rate activity is seen. There are 2 fibroids in the uterus posteriorly measuring 3.8 cm and 2.9 cm. 3. No fluid in the cul-de-sac. 4. Ovaries are seen and appear normal. 5. Suggest repeat scan in 1 week. Dictated by: Perez Rae MD 03/19/2024 08:04 Perez Rae MD in [facility] 03/19/2024 08:04
== END 2024-03-18 23:59 | disposition home or self-care (01) ==
LOC: RAD 10:23
PROVIDERS: PCP Internal Medicine; Visit Provider Nurse Practitioner Obstetrics & Gynecology
DX: N96 Recurrent pregnancy loss (principal); O36.80X0 Pregnancy with inconclusive fetal viability, not applicable or unspecified; Z87.59 Personal history of other complications of pregnancy, childbirth and the puerperium; O20.9 Hemorrhage in early pregnancy, unspecified; Z3A.01 Less than 8 weeks gestation of pregnancy
CPT/HCPCS: 76801

== ENCOUNTER 2024-03-19 09:45 | Outpatient (CLI) | payer BC, SELFPAY ==
[2024-03-19 11:35] LABS: HCG,Quantitative 1404 mIU/ml (0-5.42)
== END 2024-03-19 23:59 | disposition home or self-care (01) ==
LOC: LAB 09:46
PROVIDERS: PCP Internal Medicine; Visit Provider Nurse Practitioner Obstetrics & Gynecology
DX: N96 Recurrent pregnancy loss (principal); N93.9 Abnormal uterine and vaginal bleeding, unspecified
CPT/HCPCS: 36415; 84702

== ENCOUNTER 2024-03-24 14:42 | Outpatient (CLI) | payer BC, SELFPAY ==
--- NOTE | 2024-03-24 14:42 | US_ITS ---
PROCEDURE: US OB <= 14 WEEKS FETUS CLINICAL INDICATION: check viability COMPARISON: US US OB <= 14 WEEKS FETUS from 03/18/2024 FINDINGS: Transvaginal sonographic images of the pelvis were obtained. From her last menstrual period she is 7weeks 4days. An intrauterine gestational sac is present with a pole with a crown-rump length of 0.22cm This correlates to a gestational age of 5weeks 5days. heart tones are not seen today. Yolk sac is noted. The yolk sac measures 3.5mm. There is a posterior fibroid within the myometrium. There appears to be a small 7.5 mm subchorionic hemorrhage. The right ovary is seen and appears normal. The left ovary is seen and appears normal. There is no fluid in the cul-de-sac. IMPRESSION: 1. There is a small gestational sac along with a yolk sac seen today. 2. A pole is seen but no heart rate is seen yet. The crown-rump length 5 weeks 5 days. 3. There is a posterior fibroid in the uterus. 4. Both ovaries are seen and appear normal. 5. Suggest repeat scan in 1 week. Dictated by: Perez Rae MD 03/24/2024 16:06 Perez Rae MD in [facility] 03/24/2024 16:06
[2024-03-24 16:03] LABS: HCG,Quantitative 1491 mIU/ml (0-5.42)
== END 2024-03-24 23:59 | disposition home or self-care (01) ==
LOC: RAD 14:42
PROVIDERS: PCP Internal Medicine; Visit Provider Obstetrics & Gynecology
DX: O26.891 Other specified pregnancy related conditions, first trimester (principal); Z3A.01 Less than 8 weeks gestation of pregnancy; N96 Recurrent pregnancy loss; O09.521 Supervision of elderly multigravida, first trimester
CPT/HCPCS: 36415; 76801; 84702

== ENCOUNTER 2024-03-27 10:56 | Outpatient (CLI) | payer BC, SELFPAY ==
--- NOTE | 2024-03-27 10:57 | US_ITS ---
PROCEDURE: US OB <= 14 WEEKS FETUS CLINICAL INDICATION: treatened , vaginal bleeding COMPARISON: US US OB <= 14 WEEKS FETUS from 03/24/2024 FINDINGS: Transvaginal sonographic images of the pelvis were obtained. From her last menstrual period she is 8weeks 0 days. An intrauterine gestational sac is absent today. heart tones are not seen today. Yolk sac is not seen today. There is a posterior fibroid within the uterine myometrium. The endometrium appears heterogenous and thickened. There is a small cystic area within the endometrium measuring 2 mm. The previously described gestational sac and yolk sac are no longer present. The right ovary is seen and appears normal. The left ovary is seen and appears normal. There is no fluid in the cul-de-sac. IMPRESSION: 1. The previously described yolk sac and gestational sac are no longer present. 2. The endometrium is heterogenous and thickened. Incomplete miscarriage. 3. Both ovaries are seen and appear normal. Dictated by: Perez Rae MD 03/27/2024 18:11 Perez Rae MD in [facility] 03/27/2024 18:11
[2024-03-27 13:07] LABS: HCG,Quantitative 91 mIU/ml (0-5.42)
== END 2024-03-27 23:59 | disposition home or self-care (01) ==
LOC: RAD 10:57
PROVIDERS: PCP Internal Medicine; Visit Provider Obstetrics & Gynecology
DX: O09.521 Supervision of elderly multigravida, first trimester (principal); O20.0 Threatened abortion; N93.9 Abnormal uterine and vaginal bleeding, unspecified; O02.1 Missed abortion
CPT/HCPCS: 36415; 76801; 84702

== ENCOUNTER 2024-04-03 13:51 | Outpatient (CLI) | payer BC, SELFPAY ==
[2024-04-03 15:24] LABS: HCG,Quantitative 5 mIU/ml (0-5.42)
== END 2024-04-03 23:59 | disposition home or self-care (01) ==
LOC: LAB 13:51
PROVIDERS: PCP Internal Medicine; Visit Provider Obstetrics & Gynecology
DX: O02.1 Missed abortion (principal)
CPT/HCPCS: 36415; 84702

== ENCOUNTER 2024-05-11 10:16 | Outpatient (CLI) | payer BC, SELFPAY ==
[2024-05-12 08:18] LABS: Progesterone 0.2 ng/mL (.)
== END 2024-05-11 23:59 | disposition home or self-care (01) ==
LOC: LAB 10:17
PROVIDERS: PCP Internal Medicine; Visit Provider Obstetrics & Gynecology
DX: N97.0 Female infertility associated with anovulation (principal); N83.9 Noninflammatory disorder of ovary, fallopian tube and broad ligament, unspecified
CPT/HCPCS: 36415; 84144

== ENCOUNTER 2024-06-05 11:52 | Outpatient (CLI) | payer BC, SELFPAY ==
[2024-06-05 12:46] LABS: Hemoglobin A1C 5.2 % (4.0-6.0)
[2024-06-05 12:48] LABS: Basophils % 0.8 % (0.1-2.0); Eosinophils # 0.1 K/mm3 (0.0-0.4); Eosinophils % 1.4 % (0.1-12.0); Hematocrit 40.8 % (37.0-47.0); Hemoglobin 13.6 g/dL (12.2-16.2); Lymphocytes # 1.4 K/mm3 (0.7-4.5); Lymphocytes % 26.7 % (10-50); Mean Corpuscular HGB Conc 33.2 g/dL (31.8-35.4); Mean Corpuscular Hemoglobin 27.1 pg (27.0-31.2); Mean Corpuscular Volume 81.5 fl (81-99); Mean Platelet Volume 7.3 fl (7.4-10.4); Monocytes # 0.3 K/mm3 (0.1-1.0); Monocytes % 6.2 % (1.7-9.3); Neutrophils # 3.5 K/mm3 (1.8-7.8); Neutrophils % 64.8 % (37.0-80.0); Platelet Count 291 K/mm3 (142-424); Red Blood Count 5.01 M/mm3 (4.20-5.40); Red Cell Distribution Width 14.7 % (11.5-17.5); White Blood Count 5.3 K/mm3 (4.8-10.8)
[2024-06-05 13:03] LABS: Chloride 109 mmol/L (98-107); Potassium 4.1 mmoL/L (3.5-5.1); Sodium 140 mmol/L (136-145)
[2024-06-05 13:05] LABS: Blood Urea Nitrogen 13 mg/dl (7-17); Estimated Glomerular Filt Rate 69 ml/min (>60); GFR (African American) 83 ML/MIN (>60)
[2024-06-05 13:06] LABS: Alanine Aminotransferase 29 U/L (12-78); Albumin Level 4.1 g/dl (3.5-5.0); Albumin/Globulin Ratio 1.4 (1.1-1.8); Alkaline Phosphatase 85 U/L (38-126); Anion Gap 8.1 mEq/L (5-15); Aspartate Amino Transferase 30 U/L (14-36); Bilirubin,Total 0.2 mg/dl (0.2-1.3); Calcium 9.4 mg/dl (8.4-10.2); Carbon Dioxide 27 mmol/L (22.0-30.0); Glucose 103 mg/dl (74-100); Total Protein,Serum 7.1 g/dl (6.3-8.2)
[2024-06-05 13:36] LABS: Thyroid Stimulating Hormone 0.18 uIU/mL (0.465-4.68)
[2024-06-06 08:21] LABS: Varicella Zoster IgG 2189 index (Immune >165)
[2024-06-06 10:23] LABS: Estradiol 50.3 pg/mL (.); LH 6.6 mIU/mL (.); Prolactin 13.4 ng/mL (4.8-33.4)
[2024-06-16 14:10] LABS: Anti Mullerian Hormone (AMH) 2.66
== END 2024-06-05 23:59 | disposition home or self-care (01) ==
LOC: LAB 11:53
PROVIDERS: PCP Internal Medicine
DX: Z31.9 Encounter for procreative management, unspecified (principal); Z78.9 Other specified health status
CPT/HCPCS: 36415; 80050; 80053; 82397; 82670; 83001; 83002; 83036; 84146; 84443; 85025; 86787; 86850; 86900; 86901

== ENCOUNTER 2024-07-28 09:58 | Outpatient (CLI) | payer BC, SELFPAY ==
--- NOTE | 2024-07-28 09:59 | FL_ITS ---
FINAL REPORT CLINICAL HISTORY: .infertility 623.95 dap .25 fluoro FINDINGS: FLUOROSCOPY LESS THAN 1 HOUR HISTORY: Fluoroscopy guidance. Fluoroscopic guidance was provided for hysterosalpingography. A single spot film was obtained. A total of 0.25 minutes of fluoroscopy time were used. Total DAP: 623.95 mGy IMPRESSION: As above. Reviewed, Interpreted and Dictated by Akira Thompson III, MD Transcribed by Maite Hansen Authenticated and [facility]
[2024-07-28] MEDS: IOPAMIDOL-370 (76%);100ML BOTTLE 60 ML IV (10:44)
--- NOTE | 2024-07-28 13:42 | P.PCN_ITS ---
[facility] Procedure Note Date: 07/28/24 Time: 11:00 Procedure Note:: Findings: Right patent fallopian tubes without hydrosalpinx. No spill noted from the left fallopian tube. No endometrial filling defects noted. Patient was positioned in the dorsal lithotomy position. Speculum was inserted. Cervix and vagina was cleansed with Hibiclens. Tenaculum was placed on anterior lip of the cervix. 60 cc of contrast was drawn up into a syringe and attached to the [facility] HSG cannula. Contrast was flushed through cannula to remove air bubbles and ensure patency. Cannula was then inserted into the cervix. Fluoroscopy was initiated with 10 cc of contrast injected into the endometrial cavity. Fluoroscopy demonstrated contrast immediately flowing from endometrial cavity through unilateral fallopian tubes. There was a significant amount of return of contrast in the vagina. An additional 20mL was pushed at a fast rate in an attempt to flush open the fallopian tube without success. A brief pause in the study with repositioning of the cannula to troubleshoot for cornual spasm or occlusion was observed. An additional 20mL of solution was pushed without patency of the second tube being noted. At this time a significant amount contrast was noted in the vagina. Cavity appeared normal shape. Cannula was removed from the cervix. Tenaculum was removed from the cervix. Contrast cleared from the vagina. Hemostasis was noted. Speculum removed from the vagina. Patient tolerated the procedure well. Results were reviewed with the patient and her spouse.
[2024-07-28 15:03] LABS: 25-OH Vitamin D, Total 75.6 ng/mL (30-100)
[2024-07-28 15:09] LABS: Hemoglobin A1C 5.4 % (4.0-6.0)
[2024-07-29 08:55] LABS: HIV (1&2) Antibody Rapid NONREACTIVE (NONREACTIVE)
[2024-07-30 08:38] LABS: Hepatitis B Surface Antigen Negative (Negative)
[2024-07-30 10:43] LABS: Rubella Antibodies, IgG 2.08 index (Immune >0.99)
[2024-07-30 12:39] LABS: Testosterone,Total 29 ng/dL (4-50)
[2024-07-30 13:19] LABS: Rapid Plasma Reagin Ab Titer Non Reactive titer (NonRea<1:1)
== END 2024-07-28 23:59 | disposition home or self-care (01) ==
LOC: RAD 09:59
PROVIDERS: Obstetrics & Gynecology Reproductive Endocrinology; PCP Obstetrics & Gynecology; Visit Provider Obstetrics & Gynecology
DX: N83.9 Noninflammatory disorder of ovary, fallopian tube and broad ligament, unspecified (principal)
CPT/HCPCS: 36415; 74740; 82306; 83036; 84403; 86762; 86850; 87389; Q9967

== ENCOUNTER 2024-07-28 13:44 | Outpatient (CLI) | payer BC, SELFPAY | END 2024-07-28 23:59 | disposition home or self-care (01) | LOC: LAB 13:47 | PROVIDERS: PCP Internal Medicine; Visit Provider Obstetrics & Gynecology Reproductive Endocrinology | DX: Z02.9 Encounter for administrative examinations, unspecified (principal) ==

== ENCOUNTER 2024-08-19 13:43 | Outpatient (CLI) | payer BC, SELFPAY ==
--- NOTE | 2024-08-19 13:44 | US_ITS ---
PROCEDURE: US TRANSVAGINAL CLINICAL INDICATION: Follicle Scan COMPARISON: US US OB <= 14 WEEKS FETUS from 03/27/2024 RF FL HYSTEROSALPINGOGRAPHY from 07/28/2024 FINDINGS: Transvaginal sonographic images of the pelvis were obtained. UTERUS: 8.8 cm x 5.9 cmx 4.6 cm anteverted with a combined endometrial thickness of 3.9mm. The endometrium is homogeneous. There is a posterior fibroid that is adjacent to the endometrial cavity and measures 3.3 cm x 2.3 cm x 1.9 cm. LEFT OVARY: 3.8 cmx3.3cmx2.0cm with a volume of 13ml. Follicle 1. 0.95 cm Follicle 2. 0.48 cm Follicle 3. 0.88 cm Follicle 4. 0.58 cm Follicle 5. 0.43 cm Follicle 6. 0.61 cm Follicle 7. 0.40 cm Follicle 8. 0.48 cm Follicle 9. 1.21 cm Follicle 10. 1.04 cm RIGHT OVARY: 3.7 cmx 3.0cmx2.1cm with a volume of 12ml. Follicle 1. 0.43 cm Follicle 2. 0.58 cm Follicle 3. 0.59 cm Follicle 4. 0.66 cm Follicle 5. 1.20 cm Follicle 6. 0.54 cm Follicle 7. 0.59 cm Both ovaries are seen and appear normal. Doppler flow to both ovaries are seen. There is no fluid in the cul-de-sac. IMPRESSION: 1. Anteverted uterus normal in shape and size. The endometrium is 3.9 mm and homogeneous. 2. There is a posterior fibroid that is adjacent to the endometrial cavity measuring 3.3 cm. 3. Both ovaries are seen and appear normal. There are multiple follicles on each ovary. 4. No fluid in the cul-de-sac. Dictated by: Perez Rae MD 08/19/2024 16:09 Perez Rae MD in [place] 08/19/2024 16:09
[2024-08-19 16:56] LABS: HCG,Quantitative < 2 mIU/ml (0-5.42)
[2024-08-19 17:05] LABS: Thyroid Stimulating Hormone 0.19 uIU/mL (0.465-4.68)
[2024-08-21 08:22] LABS: Estradiol 46.2 pg/mL (.); FSH 6.2 mIU/mL (.); LH 6.3 mIU/mL (.); Progesterone 0.1 ng/mL (.)
== END 2024-08-19 23:59 | disposition home or self-care (01) ==
PROVIDERS: PCP Internal Medicine; Visit Provider Obstetrics & Gynecology
DX: N83.9 Noninflammatory disorder of ovary, fallopian tube and broad ligament, unspecified (principal)
CPT/HCPCS: 36415; 76830; 82670; 83001; 83002; 84144; 84443; 84702

== ENCOUNTER 2024-08-24 09:20 | Outpatient (CLI) | payer BC, SELFPAY ==
--- NOTE | 2024-08-24 15:49 | US_ITS ---
PROCEDURE: US TRANSVAGINAL CLINICAL INDICATION: Follicle scan COMPARISON: US US TRANSVAGINAL from 08/19/2024 FINDINGS: Transvaginal sonographic images of the pelvis were obtained. UTERUS: 8.1cm x 5.8 cmx 4.4cm anteverted with a combined endometrial thickness of 8.2mm. The endometrium appears trilaminar. There is a posterior fibroid measuring 2.8 cm x 2.3 cm x 2.7 cm. There is posterior shadowing. There is a trace amount of fluid within the cervix. LEFT OVARY: 3.7 cmx2.7 cmx3.5cm with a volume of 18.2ml. Follicle 1. 1.0 cm Follicle 2. 1.01 cm Follicle 3. 0.57 cm Follicle 4. 0.89 cm Follicle 5. 0.93 cm Follicle 6. 0.79 cm Follicle 7. 1.75 cm RIGHT OVARY: 3.9 cmx 2.9 cmx2.5cm with a volume of 14.8ml. Follicle 1. 0.67 cm Follicle 2. 0.83 cm Follicle 3. 0.83 cm Follicle 4. 1.27 cm Follicle 5. 0.82 cm Follicle 6. 0.70 cm Follicle 7. 0.68 cm Follicle 8. 1.04 cm Follicle 9. 2.03 cm Follicle 10. 1.25 cm Both ovaries are seen and appear normal. Doppler flow to both ovaries are seen. There is no fluid in the cul-de-sac. IMPRESSION: 1. Anteverted uterus normal in shape and size. The endometrium measures 8.2 mm and appears trilaminar. 2. There is a posterior fibroid measuring 2.8 cm with calcifications and posterior shadowing. 3. The left ovary contains 7 follicles. 4. The right ovary contains 10 follicles. 5. No fluid in the cul-de-sac. Dictated by: Perez Rae MD 08/24/2024 16:46 Perez Rae MD in [facility] 08/24/2024 16:46
[2024-08-25 08:40] LABS: Progesterone 0.3 ng/mL (.)
== END 2024-08-24 23:59 | disposition home or self-care (01) ==
PROVIDERS: PCP Internal Medicine; Visit Provider Obstetrics & Gynecology
DX: N83.9 Noninflammatory disorder of ovary, fallopian tube and broad ligament, unspecified (principal)
CPT/HCPCS: 36415; 76830; 82670; 83002; 84144

== ENCOUNTER 2024-10-08 13:55 | Outpatient (CLI) | payer BC, SELFPAY ==
--- NOTE | 2024-10-08 14:03 | US_ITS ---
PROCEDURE: US TRANSVAGINAL CLINICAL INDICATION: ENCOUNTER FOR ART PROCEDURE COMPARISON: US US TRANSVAGINAL from 08/19/2024 US US TRANSVAGINAL from 08/24/2024 FINDINGS: Transvaginal sonographic images of the pelvis were obtained. UTERUS: 8.9 cm x 6.1cmx 5.2cm with a combined endometrial thickness of 4.9mm. The endometrium appears trilaminar. The endometrium is difficult to visualize due to the fibroid impinging upon the endometrial cavity. There is a posterior fibroid measuring 2.9 cm x 2.7 cm x 3.2 cm. There is posterior shadowing within the fibroid. LEFT OVARY: [id number] with a volume of 9ml. Follicle 1. 2.1 cm RIGHT OVARY: 3cmx [id number] with a volume of 11.2ml. Follicle 1. 0.73 cm Follicle 2. 0.71 cm Follicle 3. 0.59 cm Follicle 4. 0.90 cm Follicle 5. 1.12 cm Both ovaries are seen and appear normal. Doppler flow to both ovaries are seen. There is no fluid in the cul-de-sac. IMPRESSION: 1. Anteverted uterus normal in shape and size. 2. The endometrium is difficult to see but is trilaminar and thin measuring 4.9 mm. 3. There is a posterior fibroid impinging upon the posterior endometrium that measures 3.2 cm. 4. The right ovary has at least 5 follicles. 5. The left ovary has a single follicle measuring 2.1 cm. 6. No fluid in the cul-de-sac. Dictated by: Perez Rae MD 10/08/2024 17:16 Perez Rae MD in [facility] 10/08/2024 17:16
== END 2024-10-08 23:59 | disposition home or self-care (01) ==
LOC: RAD 13:57
PROVIDERS: PCP Obstetrics & Gynecology Reproductive Endocrinology; Visit Provider Obstetrics & Gynecology Reproductive Endocrinology
DX: Z31.83 Encounter for assisted reproductive fertility procedure cycle (principal)
CPT/HCPCS: 76830

== ENCOUNTER 2024-10-12 14:22 | Outpatient (CLI) | payer BC, SELFPAY ==
--- NOTE | 2024-10-12 14:24 | US_ITS ---
PROCEDURE: US TRANSVAGINAL CLINICAL INDICATION: FOLLICLE TESTING COMPARISON: US US TRANSVAGINAL from 08/19/2024 US US TRANSVAGINAL from 08/24/2024 US US TRANSVAGINAL from 10/08/2024 FINDINGS: Transvaginal sonographic images of the pelvis were obtained. UTERUS: 7.9 cm x4.8 cm anteverted with a combined endometrial thickness of 6.1mm. The endometrium appears trilaminar. Difficult to visualize the endometrium where it overlies the fibroid. There is a posterior fibroid measuring 2.74 cm that impinges upon the endometrium. LEFT OVARY: 3.9 cmx3.2cmx2.8cm with a volume of 18.5ml. Follicle 1. 1.03 cm Follicle 2. 0.99 cm Follicle 3. 0.93 cm Follicle 4. 0.84 cm Follicle 5. 1.67 cm Follicle 6. 0.83 cm RIGHT OVARY: 4.7 cmx 3.0cmx3.2cm with a volume of 23.5ml. Follicle 1. 0.82 cm Follicle 2. 0.67 cm Follicle 3. 0.79 cm Follicle 4. 1.05 cm Follicle 5. 1.17 cm Follicle 6. 1.06 cm Follicle 7. 0.76 cm Follicle 8. 1.39 cm Follicle 9. 1.11 cm Follicle 10. 1.41 cm Follicle 11. 1.31 cm . Both ovaries are seen and appear normal. Doppler flow to both ovaries are seen. There is no fluid in the cul-de-sac. IMPRESSION: 1. Anteverted uterus normal in shape and size with a posterior 2.7 cm fibroid that impinges upon the endometrium. The endometrium appears trilaminar. 2. Both ovaries are seen and appear normal. There are 6 follicles on the left ovary and 11 follicles on the right ovary. 3. No fluid in the cul-de-sac. Dictated by: Perez Rae MD 10/12/2024 15:39 Perez Rae MD in [facility] 10/12/2024 15:39
== END 2024-10-12 23:59 | disposition home or self-care (01) ==
LOC: RAD 14:22
PROVIDERS: PCP Internal Medicine; Visit Provider Obstetrics & Gynecology Reproductive Endocrinology
DX: Z31.83 Encounter for assisted reproductive fertility procedure cycle (principal)
CPT/HCPCS: 76830

== ENCOUNTER 2024-10-14 09:26 | Outpatient (CLI) | payer BC, SELFPAY ==
--- NOTE | 2024-10-14 09:44 | US_ITS ---
PROCEDURE: US TRANSVAGINAL CLINICAL INDICATION: FOLLICLE TESTING COMPARISON: US US TRANSVAGINAL from 10/08/2024 US US TRANSVAGINAL from 10/12/2024 FINDINGS: Transvaginal sonographic images of the pelvis were obtained. UTERUS: 9.2cm x 5.0cmx 5.5cm anteverted with a combined endometrial thickness of 6.5 mm. The endometrium is trilaminar There is a posterior fibroid measuring 3.3 cm x 2.2 cm x 2.5 cm. It appears to impinge on the endometrial cavity. LEFT OVARY: 4.6 cmx3.5cmx2.7cm with a volume of 22.3ml. Follicle 1. 1.43 cm Follicle 2. 1.3 cm Follicle 3. 0.74 cm Follicle 4. 1.39 cm Follicle 5. 0.85 cm Follicle 6. 0.98 cm RIGHT OVARY: 5.4cmx 3.9 cmx3.8 cm with a volume of 42.6ml. Follicle 1. 1.17 cm Follicle 2. 1.77 cm Follicle 3. 1.35 cm Follicle 4. 2.47 cm Follicle 5. 0.80 cm Follicle 6. 1.06 cm Follicle 7. 1.65 cm Follicle 8. 0.81 cm Follicle 9. 0.85 cm Follicle 10. 1.21 cm Follicle 11. 0.79 cm Follicle 12. 1.33 cm Follicle 13. 0.87 cm Follicle 14. 0.93 cm Both ovaries are seen and appear normal. Doppler flow to both ovaries are seen. There is no fluid in the cul-de-sac. IMPRESSION: 1. Anteverted uterus normal in shape and size. The endometrium is 6.5 mm and trilaminar. There is a posterior fibroid measuring 3.3 cm that impinges on the endometrial cavity. 2. Both ovaries are seen and have multiple follicles. The left ovary has 6 follicles in the right ovary has 14 follicles. 3. No fluid in the cul-de-sac. Dictated by: Perez Rae MD 10/14/2024 10:55 Perez Rae MD in [facility] 10/14/2024 10:55
== END 2024-10-14 23:59 | disposition home or self-care (01) ==
LOC: RAD 09:27
PROVIDERS: PCP Obstetrics & Gynecology Reproductive Endocrinology; Visit Provider Obstetrics & Gynecology Reproductive Endocrinology
DX: Z31.83 Encounter for assisted reproductive fertility procedure cycle (principal)
CPT/HCPCS: 76830

== ENCOUNTER 2024-10-16 10:26 | Outpatient (CLI) | payer BC, SELFPAY ==
--- NOTE | 2024-10-16 10:28 | US_ITS ---
PROCEDURE: US TRANSVAGINAL CLINICAL INDICATION: FOLLICLE TESTING COMPARISON: US US TRANSVAGINAL from 10/08/2024 US US TRANSVAGINAL from 10/12/2024 US US TRANSVAGINAL from 10/14/2024 FINDINGS: Transvaginal sonographic images of the pelvis were obtained. UTERUS: 8.9 cm x 5.8 cmx 5.1cm anteverted with a combined endometrial thickness of 7mm. The endometrium is trilaminar. There is a posterior fibroid impinging upon the endometrium. LEFT OVARY: 3.5 cmx3.5 cmx3.1cm with a volume of 19.7ml. Follicle 1. 1.86 cm Follicle 2. 1.16 cm Follicle 3. 1.34 cm Follicle 4. 0.76 cm Follicle 5. 1.46 cm Follicle 6. 1.26 cm Follicle 7. 1.20 cm RIGHT OVARY: 5.4cmx 4.3cmx3.7 cm with a volume of 45.4ml. Follicle 1. 1.15 cm Follicle 2. 1.49 cm Follicle 3. 1.16 cm Follicle 4. 1.44 cm. Follicle 5. 1.97 cm Follicle 6. 1.20 cm Follicle 7. 1.58 cm Follicle 8. 1.04 cm Follicle 9. 1.63 cm Follicle 10. 1.80 cm Follicle 11. 1.72 cm Both ovaries are seen and appear normal. Doppler flow to both ovaries are seen. There is no fluid in the cul-de-sac. IMPRESSION: 1. Anteverted uterus normal in shape and size. The endometrium is 7 mm and is trilaminar. There is a posterior fibroid impinging upon the endometrium. 2. Both ovaries are seen and contain multiple follicles. Measurements are in the body of the report. 3. No fluid in the cul-de-sac. Dictated by: Perez Rae MD 10/16/2024 17:31 Perez Rae MD in [place] 10/16/2024 17:31
== END 2024-10-16 23:59 | disposition home or self-care (01) ==
LOC: RAD 10:26
PROVIDERS: PCP Obstetrics & Gynecology Reproductive Endocrinology; Visit Provider Obstetrics & Gynecology Reproductive Endocrinology
DX: N83.9 Noninflammatory disorder of ovary, fallopian tube and broad ligament, unspecified (principal)
CPT/HCPCS: 76830

== ENCOUNTER 2024-12-02 09:33 | Outpatient (CLI) | payer BC, SELFPAY ==
--- NOTE | 2024-12-02 09:36 | US_ITS ---
PROCEDURE: US TRANSVAGINAL CLINICAL INDICATION: ART PROCEDURE COMPARISON: US US TRANSVAGINAL from 08/19/2024 US US TRANSVAGINAL from 08/24/2024 US US TRANSVAGINAL from 10/08/2024 US US TRANSVAGINAL from 10/12/2024 US US TRANSVAGINAL from 10/14/2024 US US TRANSVAGINAL from 10/16/2024 FINDINGS: Transvaginal sonographic images of the pelvis were obtained. UTERUS: 8.5 cm x 6.6 cm x 4.9 cm anteverted with a combined endometrial thickness of 6.6mm. The endometrium appears homogeneous. There is a posterior fibroid that is not measured today. LEFT OVARY: 3.0cmx2.1cmx2.3cm with a volume of 7.7ml. Follicle 1. 1.15 cm RIGHT OVARY: 3.3cmx 2.9 cmx3.0cm with a volume of 15.1ml. Follicle 1. 0.75 cm Follicle 2. 1.03 cm Follicle 3. 0.9 cm Follicle 4. 1.11 cm Follicle 5. 1.0 cm Follicle 6. 1.13 cm Both ovaries are seen and appear normal. Doppler flow to both ovaries are seen. There is no fluid in the cul-de-sac. IMPRESSION: 1. Anteverted uterus normal in shape and size. The endometrium measures 6.6 mm and is homogeneous. 2. There is a posterior fibroid in the uterus that has been seen in the past that was not measured today. 3. Left ovary contains 1 small follicle. 4. Right ovary contains 6 small follicles. 5. No fluid in the cul-de-sac. Dictated by: Perez Rae MD 12/02/2024 10:55 Perez Rae MD in [facility] 12/02/2024 10:55
== END 2024-12-02 23:59 | disposition home or self-care (01) ==
LOC: RAD 09:34
PROVIDERS: PCP Internal Medicine; Visit Provider Obstetrics & Gynecology Reproductive Endocrinology
DX: Z31.83 Encounter for assisted reproductive fertility procedure cycle (principal)
CPT/HCPCS: 76830

== ENCOUNTER 2024-12-04 08:35 | Outpatient (CLI) | payer BC, SELFPAY ==
--- NOTE | 2024-12-04 08:38 | US_ITS ---
PROCEDURE: US TRANSVAGINAL CLINICAL INDICATION: INCL ALL FOLLICLES/SIZES COMPARISON: US US TRANSVAGINAL from 10/16/2024 US US TRANSVAGINAL from 12/02/2024 FINDINGS: Transvaginal sonographic images of the pelvis were obtained. UTERUS: 9.3cm x 6.8 cmx 5.0cm anteverted with a combined endometrial thickness of 4.3mm. The endometrium appears trilaminar. There continues to be a posterior fibroid that impinges on the posterior endometrium. LEFT OVARY: 2.8 cmx2.3cmx2.1cm with a volume of 6.9ml. Follicle 1. 1.27 cm Follicle 2. 1.35 cm. Follicle 3. 1.14 cm Follicle 4. 0.76 cm RIGHT OVARY: 2.9 cmx 2.5cmx2.6 cm with a volume of 10ml. Follicle 1. 1.04 cm Follicle 2. 0.79 cm Follicle 3. 1.20 cm Follicle 4. 1.02 cm Follicle 5. 0.62 cm Follicle 6. 0.5 cm Follicle 7. 1.61 cm Follicle 8. 1.05 cm Both ovaries are seen and appear normal. Doppler flow to both ovaries are seen. There is no fluid in the cul-de-sac. IMPRESSION: 1. Anteverted, bulky uterus normal in shape. The endometrium is thin and appears trilaminar. 2. There is a posterior fibroid that impinges on the posterior endometrium. 3. There are 4 follicles on the left ovary and 8 follicles on the right ovary. 4. No fluid in the cul-de-sac. Dictated by: Perez Rae MD 12/04/2024 11:06 Perez Rae MD in [facility] 12/04/2024 11:06
== END 2024-12-04 23:59 | disposition home or self-care (01) ==
LOC: RAD 08:36
PROVIDERS: PCP Obstetrics & Gynecology Reproductive Endocrinology; Visit Provider Obstetrics & Gynecology Reproductive Endocrinology
DX: N83.9 Noninflammatory disorder of ovary, fallopian tube and broad ligament, unspecified (principal)
CPT/HCPCS: 76830

== ENCOUNTER 2024-12-07 09:32 | Outpatient (CLI) | payer BC, SELFPAY ==
--- NOTE | 2024-12-07 09:34 | US_ITS ---
PROCEDURE: US TRANSVAGINAL CLINICAL INDICATION: ALL FOLLICLES AND SIZES COMPARISON: US US TRANSVAGINAL from 08/19/2024 US US TRANSVAGINAL from 10/16/2024 US US TRANSVAGINAL from 12/02/2024 US US TRANSVAGINAL from 12/04/2024 There are multiple previous transvaginal ultrasounds measuring follicles. FINDINGS: Transvaginal sonographic images of the pelvis were obtained. UTERUS: 9.2cm x 5.2 cmx 4.9 cm anteverted with a combined endometrial thickness of 5.8mm. The endometrium appears trilaminar. There is a posterior fibroid impinging upon the endometrium. It measures 3.0 x 2.9 cm x 2.6 cm, no change in size LEFT OVARY: 4.7 cmx3.6x3.5cm with a volume of 30.8ml. Follicle 1. 1.42 cm Follicle 2. 1.97 cm Follicle 3. 1.76 cm Follicle 4. 0.67 cm Follicle 5. 1.20 cm RIGHT OVARY: 3.9 cmx 4.1cmx2.3cm with a volume of 19.2ml. Follicle 1. 1.1 cm Follicle 2. 0.54 cm Follicle 3. 1.19 cm Follicle 4. 0.99 cm Follicle 5. 1.23 cm Follicle 6. 1.01 cm Follicle 7. 2.28 cm Both ovaries are seen and appear normal. Doppler flow to both ovaries are seen. There is no fluid in the cul-de-sac. IMPRESSION: 1. Anteverted, bulky uterus with a 3 cm posterior fibroid impinging upon the endometrium. 2. The endometrium is 5.8 mm and trilaminar. 3. There are 5 follicles on the left ovary and 7 follicles on the right ovary. Follicular measurements are shown in the body of the report. 4. No fluid in the cul-de-sac. Dictated by: Perez Rae MD 12/07/2024 11:25 Perez Rae MD in [facility] 12/07/2024 11:25
== END 2024-12-07 23:59 | disposition home or self-care (01) ==
LOC: RAD 09:32
PROVIDERS: PCP Obstetrics & Gynecology Reproductive Endocrinology; Visit Provider Obstetrics & Gynecology Reproductive Endocrinology
DX: Z31.83 Encounter for assisted reproductive fertility procedure cycle (principal)
CPT/HCPCS: 76830

== ENCOUNTER 2024-12-17 15:03 | Outpatient (CLI) | payer BC, SELFPAY ==
[2024-12-17 17:43] LABS: Coronavirus 19, PCR Not Detected (NotDetected); Influenza B, PCR Not Detected (NotDetected)
[2024-12-17 19:00] LABS: Influenza A, PCR Detected (NotDetected)
== END 2024-12-17 23:59 | disposition home or self-care (01) ==
LOC: LAB.DROPOF 12-18 12:18
PROVIDERS: PCP Student in an Organized Health Care Education/Training Program; Visit Provider Student in an Organized Health Care Education/Training Program
DX: R09.81 Nasal congestion (principal)
CPT/HCPCS: 87636

== ENCOUNTER 2025-02-15 08:07 | Outpatient (CLI) | payer BC, SELFPAY ==
--- NOTE | 2025-02-15 08:10 | US_ITS ---
PROCEDURE: US TRANSVAGINAL CLINICAL INDICATION: ENCOUNTER FOR ART PROCEDURE COMPARISON: US US TRANSVAGINAL from 12/07/2024 There are least 10 other ultrasounds looking at follicles. FINDINGS: Transvaginal sonographic images of the pelvis were obtained. UTERUS: 9.3cm x 6.4cmx 5.3cm anteverted with a combined endometrial thickness of 5.2mm. The endometrium appears homogeneous. There is a posterior fibroid with calcifications measuring 3.0 cm x 2.3 cm x 2.7 cm. It impinges upon the posterior endometrium. It has not changed in size since her last ultrasound December 07, 2024 A 2nd fundal posterior fibroid is seen measuring 1.25 cm x 0.78 cm x 1.25 cm. LEFT OVARY: 3.8 cmx3.0cmx2.4cm with a volume of 14.4ml. Follicle 1. 0.69 cm. Follicle 2. 0.71 cm. Follicle 3. 0.92 cm. RIGHT OVARY: 2.5cmx 3.6 cmx3.3cm with a volume of 15.4ml. Follicle 1. 0.56 cm Follicle 2. 0.74 cm. Follicle 3. 0.69 cm. Follicle 4. 0.71 cm. Follicle 5. 0.68 cm. Follicle 6. 0.73 cm. Follicle 7. 0.71 cm. Follicle 8. 0.89 cm. Follicle 9. 0.59 cm. Follicle 10. 0.84 cm. Follicle 11. 1.12 cm. Both ovaries are seen and appear normal. Doppler flow to both ovaries are seen. There is no fluid in the cul-de-sac. IMPRESSION: 1. The uterus is anteverted and bulky in size. The endometrium is thin, homogeneous and measures 5.2 mm. There are 2 fibroids in the posterior uterus measuring 3.0 cm and 1.25 cm. The larger 3 cm fibroid impinges on the posterior endometrium. 2. Left ovary contains 3 follicles as listed above. 3. Right ovary contains 11 follicles as listed above. 4. No fluid in the cul-de-sac. Dictated by: Perez Rae MD 02/15/2025 11:16 Perez Rae MD in [facility] 02/15/2025 11:16
== END 2025-02-15 23:59 | disposition home or self-care (01) ==
LOC: RAD 08:08
PROVIDERS: PCP Internal Medicine; Visit Provider Obstetrics & Gynecology Reproductive Endocrinology
DX: Z31.83 Encounter for assisted reproductive fertility procedure cycle (principal)
CPT/HCPCS: 76830

== ENCOUNTER 2025-02-17 12:59 | Outpatient (CLI) | payer BC, SELFPAY ==
[2025-02-17 13:25] VITALS: BP 142/88; PULSE 90; RESP 18; TEMP 36.7; O2SAT 96
[2025-02-17 13:40] VITALS: BP 110/78; PULSE 80; RESP 18; TEMP 36.7; O2SAT 96
[2025-02-17 14:07] VITALS: BP 118/86; PULSE 82; RESP 18; TEMP 36.7; O2SAT 96
== END 2025-02-17 14:07 | disposition home or self-care (01) ==
LOC: INF 13:00
PROVIDERS: PCP Internal Medicine; Visit Provider Obstetrics & Gynecology Reproductive Endocrinology
DX: N97.0 Female infertility associated with anovulation (principal); N83.9 Noninflammatory disorder of ovary, fallopian tube and broad ligament, unspecified
CPT/HCPCS: 96365

== ENCOUNTER 2025-02-19 07:32 | Outpatient (CLI) | payer BC, SELFPAY ==
--- NOTE | 2025-02-19 07:35 | US_ITS ---
PROCEDURE: US TRANSVAGINAL CLINICAL INDICATION: ENCOUNTER FOR ART PROCEDURE COMPARISON: US US TRANSVAGINAL from 02/15/2025 FINDINGS: Transvaginal sonographic images of the pelvis were obtained. UTERUS: 9.5 cm x 6cmx 4.6 cm anteverted with a combined endometrial thickness of 4.6mm. The endometrium appears trilaminar A posterior fibroid is present that impinges upon the endometrial cavity measuring 3.6 cm x 3.5 cm x 3.2 cm LEFT OVARY: 4.3cmx3.5 cmx2.8cm with a volume of 22.2ml. Follicle 1. 0.64 cm Follicle 2. 0.68 cm Follicle 3. 1.22 cm RIGHT OVARY: 3.6 cmx 3.2cmx2.8 cm with a volume of 16.4ml. Follicle 1. 1.19 cm Follicle 2. 1.27 cm Follicle 3. 1.42 cm Follicle 4. 0.45 cm Follicle 5. 0.82 cm Follicle 6. 1.00 cm Follicle 7. 1.53 cm Follicle 8. 1.49 cm Follicle 9. 0.80 cm Follicle 10. 0.79 cm Both ovaries are seen and appear normal. Doppler flow to both ovaries are seen. There is no fluid in the cul-de-sac. IMPRESSION: 1. Anteverted uterus upper limits of normal in size. The endometrium is thin and appears trilaminar. There is a posterior fibroid measuring up to 3.6 cm in size that impinges on the inferior endometrium. 2. Both ovaries are seen and have multiple follicles. The sizes are listed above. 3. No fluid in the cul-de-sac. Dictated by: Perez Rae MD 02/19/2025 11:37 Perez Rae MD in [facility] 02/19/2025 11:37
== END 2025-02-19 23:59 | disposition home or self-care (01) ==
LOC: RAD 07:32
PROVIDERS: PCP Internal Medicine; Visit Provider Obstetrics & Gynecology Reproductive Endocrinology
DX: Z31.83 Encounter for assisted reproductive fertility procedure cycle (principal)
CPT/HCPCS: 76830

== ENCOUNTER 2025-02-22 07:29 | Outpatient (CLI) | payer BC, SELFPAY ==
--- NOTE | 2025-02-22 07:36 | US_ITS ---
PROCEDURE: US TRANSVAGINAL CLINICAL INDICATION: ENCOUNTER FOR ART PROCEDURE COMPARISON: US US TRANSVAGINAL from 02/15/2025 US US TRANSVAGINAL from 02/19/2025 FINDINGS: Transvaginal sonographic images of the pelvis were obtained. UTERUS: Anteverted with an endometrial thickness of 7.8mm. The endometrium appears trilaminar. There is a posterior fibroid impinging upon the uterine cavity. Uterine measurements were not done today. LEFT OVARY: 4.0cmx3.2cmx2.5cm with a volume of 16.8ml. Follicle 1. 0.63 cm Follicle 2. 0.74 cm Follicle 3. 0.69 cm Follicle 4. 0.64 cm Follicle 5. 1.10 cm RIGHT OVARY: 4.2cmx 4.3cmx4.1cm with a volume of 38.1ml. Follicle 1. 1.74 cm Follicle 2. 1.43 cm Follicle 3. 1.89 cm Follicle 4. 0.94 cm Follicle 5. 0.65 cm Follicle 6. 1.23 cm Follicle 7. 0.45 cm Follicle 8. 0.65 cm Both ovaries are seen and appear normal. Doppler flow to both ovaries are seen. There is no fluid in the cul-de-sac. IMPRESSION: 1. Anteverted uterus with a posterior fibroid impinging upon the endometrium. The endometrium measures 7.8 mm and is trilaminar. 2. Left ovary contains 5 follicles as above. Right ovary contains 8 follicles as above. 3. No fluid in the cul-de-sac. Dictated by: Perez Rae MD 02/22/2025 11:29 ePrez Rae MD in [place] 02/22/2025 11:29
== END 2025-02-22 23:59 | disposition home or self-care (01) ==
LOC: RAD 07:30
PROVIDERS: PCP Internal Medicine; Visit Provider Obstetrics & Gynecology Reproductive Endocrinology
DX: Z31.83 Encounter for assisted reproductive fertility procedure cycle (principal)
CPT/HCPCS: 76830

== ENCOUNTER 2025-02-24 07:32 | Outpatient (CLI) | payer BC, SELFPAY ==
--- NOTE | 2025-02-24 07:36 | US_ITS ---
PROCEDURE: US TRANSVAGINAL CLINICAL INDICATION: ART PROCEDURE COMPARISON: US US TRANSVAGINAL from 02/15/2025 US US TRANSVAGINAL from 02/19/2025 US US TRANSVAGINAL from 02/22/2025 FINDINGS: Transvaginal sonographic images of the pelvis were obtained. UTERUS: 9.0cm x 6.0cmx 4.9 cm with a combined endometrial thickness of 6.4mm. The endometrium is trilaminar. There continues to be a large posterior fibroid that impinges upon the endometrial cavity from below. There is a 2nd small subserosal fibroid at the fundus of the uterus on the right side. LEFT OVARY: 3.3cmx2.5 cmx2.3cm with a volume of 10.2ml. Follicle 1. 1.31 cm Follicle 2. 0.87 cm Follicle 3. 0.60 cm Follicle 4. 0.61 cm Follicle 5. 0.93 cm Follicle 6. 1.15 cm RIGHT OVARY: 4.0cmx 3.1cmx3.3cm with a volume of 22ml. There are multiple follicles in the right ovary. Follicle 1. 2.13 cm Follicle 2. 1.47 cm Follicle 3. 2.32 cm Follicle 4. 2.41 cm Follicle 5. 0.99 cm Follicle 6. 2.80 cm Follicle 7. 0.72 cm Follicle 8. 1.18 cm Follicle 9. 0.75 cm Follicle 10. 0.63 cm Both ovaries are seen and appear normal. Doppler flow to both ovaries are seen. There is no fluid in the cul-de-sac. IMPRESSION: 1. Anteverted, bulky uterus. The endometrium measures 6.4 mm and is trilaminar in appearance. 2. There are 2 fibroids in the uterus and there continues to be a large posterior fibroid that impinges upon the endometrial cavity. 3. Both ovaries are seen and contain multiple follicles as described above. 4. No fluid in the cul-de-sac. Dictated by: Perez Rae MD 02/24/2025 10:15 Perez Rae MD in [place] 02/24/2025 10:15
== END 2025-02-24 23:59 | disposition home or self-care (01) ==
LOC: RAD 07:33
PROVIDERS: PCP Internal Medicine; Visit Provider Obstetrics & Gynecology Reproductive Endocrinology
DX: Z31.83 Encounter for assisted reproductive fertility procedure cycle (principal)
CPT/HCPCS: 76830

== ENCOUNTER 2025-02-26 10:22 | Outpatient (CLI) | payer BC, SELFPAY ==
--- NOTE | 2025-02-26 10:26 | US_ITS ---
PROCEDURE INFORMATION: Exam: US Pelvis, Transvaginal, Non-Obstetric Exam date and time: 02/26/2025 10:24 AM Age: 44 years old Clinical indication: Other: Infertility treatments-- follicle count; Follicle count-last US on saturday-- please describe if endo is trilaminar and [place] of each follicle--; Additional info: Folli. Count TECHNIQUE: Imaging protocol: Real-time transvaginal pelvic (non-obstetric) ultrasound with image documentation. Transvaginal imaging was used for better evaluation of the endometrium, adnexa, and/or cervix. Total images: 38 COMPARISON: US TRANSVAGINAL 02/24/2025 7:31 AM FINDINGS: Uterus: Uterus measures 9.4 x 5.4 x 6.0 cm. Endometrium appears trilaminar and measures 8 mm. Large posterior fibroid is again noted and unchanged. Question smaller fibroid near the fundus of the uterus on the right. Right ovary/adnexa: Right ovary measures 6.6 x 5.2 x 5.2 cm. Multiple follicles noted within the right ovary. Left ovary/adnexa: Left ovary measures 4.9 x 3.7 x 2.7 cm. Multiple follicles noted within the left ovary. Urinary bladder: Urinary bladder is limited. Intraperitoneal space: No free fluid. Follicles right ovary: Follicle 1 1.82 cm Follicle 2 1.3 cm Follicle 3 1.74 cm Follicle 4 1.1 cm Follicle 5 1.3 cm Follicle 6 1.48 cm Follicle 7 1.12 cm Follicle 8 1.23 cm Follicle 9 1.97 cm Follicle 10 1.52 cm Follicles left ovary: Follicle 1 0.99 cm Follicle 2 0.78 cm Follicle 3 1.20 cm Follicle 4 1.29 cm Follicle 5 1.74 cm Follicle 6 1.08 cm Follicle 7 0.66 cm Follicle 8 1.12 cm Follicle 9 1.02 cm IMPRESSION: 1. Endometrium appears trilaminar and measures 8 mm. 2. Large posterior fibroid is again noted and unchanged. 3. Question smaller fibroid near the fundus of the uterus on the right. 4. Multiple follicles noted within the ovaries bilaterally.
== END 2025-02-26 23:59 | disposition home or self-care (01) ==
LOC: RAD 10:22
PROVIDERS: PCP Internal Medicine; Visit Provider Obstetrics & Gynecology Reproductive Endocrinology
DX: Z31.83 Encounter for assisted reproductive fertility procedure cycle (principal)
CPT/HCPCS: 76830

== ENCOUNTER 2025-03-16 10:06 | Outpatient (CLI) | payer BC, SELFPAY ==
[2025-03-16 11:40] VITALS: BP 136/74; PULSE 71; RESP 18; TEMP 36.8; O2SAT 100
--- NOTE | 2025-03-16 11:40 | PC.NURSE ---
PT BROUGHT OWN MED FROM HOME, LIPID EMULSION 100ML. MED VERIFIED WITH ORDER BY NICHOLE SKAGGS.
[2025-03-16] MEDS: SODIUM CHLORIDE 0.9% 250ML BAG 250 ML IV (11:59)
[2025-03-16] MEDS: SODIUM CHLORIDE 0.9% 10ML FLUSH SYRINGE 10 ML IV (12:00)
[2025-03-16 15:13] VITALS: BP 146/71; PULSE 72
== END 2025-03-16 12:25 | disposition home or self-care (01) ==
LOC: INF 10:07
PROVIDERS: PCP Internal Medicine; Visit Provider Obstetrics & Gynecology Reproductive Endocrinology
DX: N97.0 Female infertility associated with anovulation (principal)
CPT/HCPCS: 96365

== ENCOUNTER 2025-03-26 07:36 | Outpatient (CLI) | payer BC, SELFPAY ==
--- NOTE | 2025-03-26 07:38 | US_ITS ---
PROCEDURE: US TRANSVAGINAL CLINICAL INDICATION: ENCOUNTER ART PROCEEDURE COMPARISON: No exams were available for comparison FINDINGS: Transvaginal sonographic images of the pelvis were obtained. UTERUS: 8.5 cm x 5.5 cmx 5.2cm anteverted with a combined endometrial thickness of 4.8mm. The endometrium appears homogeneous. There continues to be a fibroid posteriorly impinging upon the endometrial cavity that measures 3.6 cm x 2.8 cm x 3.6 cm Fibroid 2. Subserosal fibroid at the fundus of the uterus measuring 1.3 cm x 1.0 x 2.1 cm Fibroid 3. Subserosal at the fundus of the uterus measuring 1.4 cm x 1.2 cm x 1.6 cm LEFT OVARY: 4.5cmx3.0cmx3.1cm with a volume of 21.9ml. Follicle 1. 1.18 cm Follicle 2. 0.59 cm Follicle 3. 1.12 cm Follicle 4. 0.66 cm Follicle 5. 1.25 cm Follicle 6. 0.57 cm Follicle 7. 0.74 cm Follicle 8. 0.90 cm Follicle 9. 0.62 cm RIGHT OVARY: 4.7 cmx 3.8 cmx2.9 cm with a volume of 26.8ml. Follicle 1. 1.16 cm Follicle 2. 0.63 cm Follicle 3. 0.64 cm Follicle 4. 0.64 cm Follicle 5. 0.64 cm Follicle 6. 1.01 cm Follicle 7. 1.08 cm Follicle 8. 0.64 cm Follicle 9. 0.73 cm Both ovaries are seen and appear normal. Doppler flow to both ovaries are seen. There is no fluid in the cul-de-sac. IMPRESSION: 1. Anteverted, bulky uterus that contains at least 3 fibroids. The largest measures 3.6 cm and impinges upon the endometrial cavity posteriorly. 2. The endometrium is thin and homogeneous measuring 4.8 mm. 3. Both ovaries are seen and appear multi-cystic with multiple small peripheral follicles. 4. No fluid in the cul-de-sac. Dictated by: Perez Rae MD 03/26/2025 08:24 Perez Rae MD in [place] 03/26/2025 08:26
== END 2025-03-26 23:59 | disposition home or self-care (01) ==
LOC: RAD 07:37
PROVIDERS: PCP Internal Medicine; Visit Provider Obstetrics & Gynecology Reproductive Endocrinology
DX: Z31.83 Encounter for assisted reproductive fertility procedure cycle (principal)
CPT/HCPCS: 76830

== ENCOUNTER 2025-03-31 13:17 | Outpatient (CLI) | payer BC, SELFPAY ==
[2025-03-31 15:30] LABS: Human Rhinovirus Not Detected (NotDetected); Influenza A, PCR Not Detected (NotDetected); Influenza B, PCR Not Detected (NotDetected); Respiratory Syncytial Virus Not Detected (NotDetected)
[2025-03-31 18:14] LABS: Coronavirus 19, PCR Detected (NotDetected)
== END 2025-03-31 23:59 | disposition home or self-care (01) ==
LOC: LAB.DROPOF 04-02 13:17
PROVIDERS: PCP Internal Medicine; Visit Provider Nurse Practitioner
DX: J02.9 Acute pharyngitis, unspecified (principal)
CPT/HCPCS: 87631

== ENCOUNTER 2025-04-02 08:04 | Outpatient (CLI) | payer BC, SELFPAY ==
--- NOTE | 2025-04-02 08:17 | US_ITS ---
PROCEDURE: US TRANSVAGINAL CLINICAL INDICATION: ART PROCEDURE COMPARISON: US US TRANSVAGINAL from 02/15/2025 US US TRANSVAGINAL from 02/19/2025 US US TRANSVAGINAL from 02/22/2025 US US TRANSVAGINAL from 02/24/2025 US US TRANSVAGINAL from 02/26/2025 US US TRANSVAGINAL from 03/26/2025 FINDINGS: Transvaginal sonographic images of the pelvis were obtained. UTERUS: 8.9cm x 5.4 cmx 5.1cm with a combined endometrial thickness of 7.8 mm. The endometrium appears trilaminar There continues to be a 3.3 cm posterior fibroid impinging upon the endometrial cavity. Fibroid 2. 1.4 cm x 1.1 cm x 1.7 cm posterior subserosal Fibroid 3. 1.4 cm x 1.4 cm x 1.4 cm posterior Fibroid 4. 1.0 cm x 0.8 cm x by 0.8 cm located superior to the endometrium in the fundal myometrium LEFT OVARY: 4.3cmx2.5 cmx2.8cm with a volume of 15.6ml. Follicle 1. 0.99 cm Follicle 2. 0.71 cm Follicle 3. 0.92 cm Follicle 4. 0.89 cm Follicle 5. 0.70 cm Follicle 6. 0.75 cm RIGHT OVARY: 2.8 cmx 3.4cmx3.9 cm with a volume of 19.3ml. Follicle 1. This is 1.13 cm Follicle 2. 0.81 cm Follicle 3. 0.76 cm Follicle 4. 0.56 cm Follicle 5. 0.62 cm Follicle 6. 0.67 cm Follicle 7. 0.50 cm Follicle 8. 0.80 cm Follicle 9. 0.81 cm Follicle 10. 0.98 cm Follicle 11. 0.85 cm Both ovaries are seen and appear normal. Doppler flow to both ovaries are seen. There is no fluid in the cul-de-sac. IMPRESSION: 1. Anteverted, bulky uterus. The endometrium measures 7.8 mm and appears trilaminar. 2. There are least 4 fibroids within the uterus with the largest measuring 3.3 cm. 3. Both ovaries are seen and contain multiple follicles. Size and numbers are dictated in the body of this report. 4. No fluid in the cul-de-sac. Dictated by: Perez Rae MD 04/02/2025 09:31 Perez Rae MD in [facility] 04/02/2025 09:31
== END 2025-04-02 23:59 | disposition home or self-care (01) ==
LOC: RAD 08:04
PROVIDERS: PCP Internal Medicine; Visit Provider Obstetrics & Gynecology Reproductive Endocrinology
DX: D25.9 Leiomyoma of uterus, unspecified (principal); Z31.41 Encounter for fertility testing
CPT/HCPCS: 76830

== ENCOUNTER 2025-04-28 07:47 | Outpatient (CLI) | payer BC, SELFPAY ==
--- OUTSIDE RECORDS SUMMARY | 2025-04-28 07:50 | XMS_ITS | Patient Health Record ---
Author Organization [facility] Address [address] [place] [address] Care Team Providers Care Stull Installer Name Role Phone Sherly Ramachandran Primary Care Provider Unavailabl e Allergies Allergen (clinical drug ingredient) Drug/Non Drug Allergy documented on EMR Reaction Allergy Type Onset Date Status No Known Drug Allergy Unknown Drug Allergy Active Reason For Referral No Information Medications Medication SIG (Take, Route, Frequency, Duration) Notes [...] a day for 30 day(s) 03/03/2019 Not-Taking Immunizations Vaccine Route Administration Date Status Comme nts [id number] FluBLOK Quad PFS (0.5m L Admin) 18 y/o & older Unknown 10/19/2022 Administered Problems Problem Type SNOMED Code ICD Code Onset Dates Problem Status W/U Status Risk Notes Problem Sinusitis (73111069) Sinusitis (J32.9) Active confirmed Plan Of Treatment Pending Test Test Name Order Date Urinalysis (IH) 05/30/2010 Insurance Providers Payer Name Payer Address Payer Phone Subscriber Number Group Number Insured Name Patient Relationship to Insured Coverage Start Date Coverage End Date [facility] [address] [place] [address] [id number] Judit Kelly Self - patient is the insured Medications Administered Medication Instructions Date of Administration Dosage Notes Kenalog 40 (40mg Admin) 05/26/2018 1 mL Medical (General) History Medical History History ICD Code None Surgical History Surgery Date(Month/Year) none Hospitalization History Reason Date(Month/Year) concussion at age 12yrs
--- OUTSIDE RECORDS SUMMARY | 2025-04-28 07:50 | XMS_ITS | Encounter Summary ---
Author Organization [facility] Address [address] [place] [id number] Care Team Providers Care Voice Systems Engineer Name Role Phone Sherly Ramachandran MD Primary Care Provider [phone] Source Comments This information has been disclosed to you from confidential records protectfrom disclosure by state law. You shall make no further disclosure of thisinformation without the specific, written, and informed release of theindividual to whom it pertains, or as otherwise permitted by law. A generalauthorization for the release of medical or other information is not sufficientfor the purposes of the release of HIV test results or diagnoses. [id number] Health Encounter Details Date Type Department Care Team (Late st Contact Info) Description 02/22/2025 Chart Note [facility] Reproductive Endocrinology and Infertility at [facility] [address] [facility] [address] [place] [address] Kamila Yancey Pt stopped by the office to sign a medical records release to obtain Social History Tobacco Use Types Packs/Day Years Used Date Smoking Tobacco: Never Smokeless Tobacco: Never Alcohol Use Standard Drinks/Week Comments Not Currently 0 (1 standard drink = 0.6 oz pur e alcohol) Comments Unknown Sex and Gender Information Value Date Recorded Sex Assigned at Not on file Legal Sex Female 11:31 AM EDT Gender Identity Not on file Sexual Orientation Not on file documented as of this encounter Progress Notes * Kamila Yancey - 02/22/2025 4:08 PM EDT Pt stopped by the office to sign a medical records release to obtain records from 07/02/2025 procedure and ULS images. Med'l Records Release scanned in documents tab. documented in this encounter Plan of Treatment Not on file documented as of this encounter Visit Diagnoses Not on filedocumented in this encounter Care Teams Voice Systems Engineer Relationship Specialty Start Date End Date Sherly Ramachandran MD [address] [place] [id number] PCP - General Internal Medicine 03/26/24 documented as of this encounter
--- OUTSIDE RECORDS SUMMARY | 2025-04-28 07:50 | XMS_ITS | Clinical Summary ---
Author Organization [facility] Address [facility] [place] [address] Care Team Providers Care Awning Craftsman Name Role Phone Sherly Ramachandran MD Primary Care Provider [phone] Source Comments This information has been disclosed to you from confidential records protectedfrom disclosure by state law. You shall make no further disclosure of thisinformation without the specific, written, and informed release of theindividual to whom it pertains, or as otherwise permitted by law. A generalauthorization for the release of medical or other information is not sufficientfor the purposes of therelease of HIV test results or diagnoses. [id number] Allergies No known active allergies Medications buPROPion HCL (WELLBUTRIN XL) 300 MG 24 hr tablet Take 1 tablet (300 mg total) by mouth daily. Active busPIRone (BUSPAR) 10 MG tablet Take 1 tablet (10 mg total) by mouth 2 times a day. Active levothyroxine (SYNTHROID) 200 MCG tablet Take 1 tablet (200 mcg total) by mouth every morning before breakfast. Active calcium carbonate/vitam in D3 (VITAMIN D-3 ORAL) Take 250 mg by mouth every 7 days. Active progesterone (PROMETRIUM) 200 MG capsule Take 1 capsule (200 mg total) by mouth in the morning and at bedtime. Active vit no.124/iron/fol ic ( VITAMIN ORAL) Take by mouth. 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 07/02/2024 Encounters Date Type Department Care Team Description 02/22/2025 Chart Note [facility] Reproductive Endocrinology and Infertility at [facility] [address] [facility] [address] [place] [address] Kamila Yancey Pt stopped by the office to sign a medical records release to obtain from Last 3 Months Family History Medical History Relation Comments Diabetes Mother Relation Status Comments Father Alive history is unkno wn, no contact Mother Alive Social History Tobacco Use Types Packs/Day Years Used Date Smoking Tobacco: Never Smokeless Tobacco: Never Tobacco Cessation:Counseling Given: Not Answered Alcohol Use Standard Drinks/Week Comments Not Currently 0 (1 standard drink = 0.6 oz pur e alcohol) Comments Unknown Sex and Gender Information Value Date Recorded Sex Assigned at Not on file Legal Sex Female 11:31 AM EDT Gender Identity Not on file Sexual Orientation Not on file Last Filed Vital Signs Vital Sign Reading Time Taken Comments Blood Pressure 128/84 06/03/2024 11:16 AM EDT Pulse - - Temperature - - Respiratory Rate - - Oxygen Saturation - - Inhaled Oxygen Concentration - - Weight 112.5 kg (248 lb) 06/03/2024 11:16 AM EDT Height 157.5 cm (5' 2 ) 06/03/2024 11:16 AM EDT Body Mass Index 45.36 06/03/2024 11:16 AM EDT Plan of Treatment Health Maintenance Due Date Last Done Comments Hepatitis C Screening (MyChart) 1982 Depression Screening 2000 Immunization: Hepatitis B (1 of 3 - 19+ 3-dose series) 2001 Cervical Cancer Screening/Pap Smear (MyChart) 2012 Mammogram (MyChart) 2022 Immunization: COVID-19 ( season) 2024 10/20/2021, 09/18/2021, 03/08/2021, Additional history exists Diabetes Screening 02/17/2025 02/18/2024 Immunization: Influenza (MyChart) (Season Ended) 2025 01/02/2024, 10/19/2022, 08/14/2021, Additional history exists Immunization: DTaP/Tdap/Td (4 - Td or Tdap) 04/09/2032 04/09/2022, 12/27/2021, 01/25/2020 HIV Screening Completed 03/17/2024 Immunization: Pneumococcal Aged Out N o longer eligible based on patient's age to complete this topic Procedures Procedure Name Priority Date/Time Associated Diagnosis Comments HIV AB, HIV 1/2, EIA, WITH REFLEXES Routine 03/17/2024 HEMOGLOBIN A1C Routine 02/18/2024 from Last 3 Months or Most Recently Relevant to Health Maintenance Results * HIV AB, HIV 1/2, EIA, with Reflexes (03/17/2024) HIV 1/2 EIA Ab Screen NR Historical Provider MD LAB BLOOD ORDERABLES Chiqui l Result * Hemoglobin A1c (02/18/2024) Hemoglobin A1C 5.6 4.0 - 6.0 % Whole Blood [facility] Provider MD LAB BLOOD ORDERABLES Chiqui l Result from Last 3 Months or Most Recently Relevant to Health Maintenance Insurance Care Teams Awning Craftsman Relationship Specialty Start Date End Date Sherly Ramachandran MD [address] [place] [phone] PCP - General Internal Medicine 03/26/24
--- NOTE | 2025-04-28 07:51 | US_ITS ---
PROCEDURE: US OB TRANSVAGINAL CLINICAL INDICATION: PREG W/ HX OF INFERTILITY COMPARISON: US US TRANSVAGINAL from 02/24/2025 US US TRANSVAGINAL from 02/26/2025 US US TRANSVAGINAL from 03/26/2025 US US TRANSVAGINAL from 04/02/2025 There are multiple previous examinations looking at follicles. FINDINGS: Transvaginal sonographic images of the pelvis were obtained. From her last menstrual period she is 5weeks 4days. An intrauterine gestational sac is present without a pole apparent yet. A gestational sac is present within the uterine cavity that measures 0.78 cm x 0.5 cm x 0.84 cm. This correlates to a gestational age of 5weeks 2days. heart tones are not yet seen. Yolk sac is noted. The yolk sac measures 2.9mm. There is a posterior fibroid present within the myometrium that impinges slightly on the endometrial cavity. The right ovary is seen and appears normal. The left ovary is seen and appears normal. There is no fluid in the cul-de-sac. IMPRESSION: 1. A gestational sac is seen within the uterine cavity. It measures 0.84 cm and correlates to a gestational age of 5 weeks 2 days. This corresponds with her last menstrual period. 2. A yolk sac is present but a fetus is not yet seen. Suggest repeat scan in 1 week. 3. The ovaries are seen and appear normal. A corpus luteum is not seen on either ovary. 4. No fluid in the cul-de-sac. Dictated by: Perez Rae MD 04/28/2025 15:22 Perez Rae MD in [facility] 04/28/2025 15:22
== END 2025-04-28 23:59 | disposition home or self-care (01) ==
LOC: RAD 07:48
PROVIDERS: PCP Internal Medicine; Visit Provider Obstetrics & Gynecology Reproductive Endocrinology
DX: O09.01 Supervision of pregnancy with history of infertility, first trimester (principal); Z3A.01 Less than 8 weeks gestation of pregnancy
CPT/HCPCS: 76817

== ENCOUNTER 2025-05-05 07:17 | Outpatient (CLI) | payer BC, SELFPAY ==
--- NOTE | 2025-05-05 07:18 | US_ITS ---
PROCEDURE INFORMATION: Exam: US , Transvaginal Exam date and time: 05/05/2025 7:19 AM Age: 45 years old Clinical indication: Screening exam; Other: Dates and viability / HX of infertility; ; Additional info: Preg, HX of infertility LABS AND CLINICAL REPORTS: Gestational age (Established): 6 w 4 d Estimated due date (Established): 12/25/2025 TECHNIQUE: Imaging protocol: Real-time transvaginal obstetrical ultrasound of the maternal pelvis with image documentation. Transvaginal imaging was used for better evaluation of the fetus, adnexa, and/or cervix. COMPARISON: US OB TRANSVAGINAL 04/28/2025 8:01 AM FINDINGS: Gestation: No gestational sac, pole or yolk sac identified on this exam. MATERNAL: Uterus: Thickened heterogeneous endometrium likely reflecting blood products. Similar posterior uterine fibroid with mass effect on the endometrium. Right ovary/adnexa: Right ovary measures 2.6 x 3.3 x 1.8 cm for volume of 8 cc. Normal blood flow. Left ovary/adnexa: Left ovary measures 58.9 cc with normal blood flow, containing a 4.2 cm simple cystic lesion likely reflecting a corpus luteum cyst. Normal blood flow in the ovarian tissues. IMPRESSION: 1. Thickened heterogeneous endometrium concerning for blood products. No gestational sac, pole or yolk sac identified on this exam, gestational sac and yolk sac were evident on the prior study. Findings concerning for blighted ovum, recommend correlation with current beta HCG values, continued follow-up with serial beta HCG and/or ultrasound recommended. OBGYN consult recommended. 2. Similar posterior uterine fibroid with impression on the endometrium. 3. 4.2 cm left corpus luteum cyst.
--- OUTSIDE RECORDS SUMMARY | 2025-05-05 07:20 | XMS_ITS | Data Portability ---
Author Organization [facility] GUSTABO [facility] [place] [facility] Address [address] [place] [address] Care Team Providers Care Registered Nurse Cardiac Telemetry Name Role Phone SOBIA CONCEPCION Primary Care Provider [phone] Assessment No assessment recorded. Plan of Treatment Reminders Order Date Submit Date Provider Last Modified By Organization Details Last Modified Time Details Appointments MAMMOGRA M 2024 04:30P M MAMMOGRAM Not available Not available Not available RECHECK 2025 11:30A M DANIEL ELIZALDE MD Not available Not available Not available Lab vitamin D, 25-hydro xy, total, serum 2024 025 [facility], [address] [place] [address], [id number], 01/05/2025 16:23:30 lipid panel, serum 2024 025 [facility], [address] [place] [address], [address], 01/05/2025 16:28:55 TSH, serum or plasma 2023 024 [facility], [address] [place] [address], [address], 01/16/2024 15:31:13 T4, free, serum 2023 024 [facility], [address] [place] [address], [address], 01/16/2024 15:31:15 vitamin D, 25-hydro xy, total, serum 2023 024 [email or web address] [facility], [address] [place] [address], [address], 01/09/2024 07:49:04 lipid panel, serum [email or web address] [facility], [address] [place] [address], [address], 01/09/2024 07:49:03 CMP, serum or plasma [email or web address] [facility], [address] [place] [address], [address], 01/09/2024 07:49:03 CBC w/ auto diff [email or web address] [facility] [address] [facility], [address] [place] [address], [address], 01/09/2024 07:49:03 TSH, serum or plasma 2023 024 [email or web address] [facility], [address] [place] [address], [address], 05/05/2024 07:59:16 T4, free, serum 2023 024 [email or web address], [address] [place] [address], [address], 05/05/2024 07:59:16 Referral None recorded . Procedures None recorded . Surgeries None recorded . Imaging MAMMO, screenin g, tomosynt hesis, bilatera l, w/ CAD 2024 025 [email or web address] [facility], [address] [place] [address], [address], 04/02/2025 07:40:54 MAMMO, screenin g, tomosynt hesis, bilatera l, w/ CAD 2023 024 [email or web address] 1 [facility], [address] [facility] [address], [place], [address], 01/21/2024 08:13:08 Medication Orders Synthroi d 200 mcg tablet 2024 025 [facility] [address]th[address] [facility], [address], [address], [place], [address], 01/14/2025 14:45:55 ergocalc iferol (vitamin D2) 1,250 mcg (50,000 unit) capsule 2024 025 [facility], [address] [place] [address] [place], [id number], 01/05/2025 14:41:26 bupropio n HCl XL 300 mg 24 hr tablet, extended release 2024 025 [facility], [address] [place] [address] E Giancarlo Slater-Susan, [place], [id number], 01/05/2025 14:41:26 triamcin olone acetonid e 0.1 % topical cream 2023 024 [id number], [address], [place], [id number], 01/02/2024 14:13:28 ergocalc iferol (vitamin D2) 1,250 mcg (50,000 unit) capsule 2023 024 [facility][id number], [address] [place], [id number], 01/02/2024 14:13:27 bupropio n HCl XL 300 mg 24 hr tablet, extended release [address] [facility][id number], [address], [place], [id number], 01/02/2024 14:16:25 Synthroi d 200 mcg tablet 2023 024 [email or web address], [address] , [address], [place], [address], 12/16/2023 16:30:54 Patient TargetsNo targets recorded. Patient InstructionsNo instructions recorded. Reason for Referral None Reported. Results Created Date Observation Date Name Description Value Unit Range Abnormal Flag Note LastModifiedBy Organization Detail LastModifiedTime 11/20/1911/20/2023 BETA HCG, PREGN CLAUDIA beta HCG, 2153 m[IU] /mL 0-5 high EXPEC YANETH HCG LEVEL S WEEKS OF GESTA TION HCG LEVEL (mIU/ mL) 3 5.8 - 71.2 4 9.5 - 750 5 217 - 7138 6 158 - 31,79 5 7 3697 - 163,5 63 8 32,06 5 - 149,5 71 9 63,80 3 - 151,4 10 10 46,50 9 - 186,9 77 12 27,83 2 - 210,6 12 14 13,95 0 - 62,53 0 15 12,03 9 - 70,97 1 16 9040 - 56,45 1 17 8175 - 55,86 8 18 8099 - 58,17 6 Not Available [facility] [address] [place] [address], [address], 11/20/2023 18:31:19 11/20/19 24 11/20/2023 TSH WITH REFLE X FT4 TSH with reflex FT4 5.270 u[IU] /mL 0.270- 4.200 high Not Available [facility] [address] [place], [address], 11/20/2023 18:33:13 11/20/1911/20/2023 T4,FR EE T4,free 1.43 NG/dL 0.93-1 .70 normal Not Available [facility] [address] [place], [address], 11/20/2023 18:55:06 11/20/19 24 11/21/2023 BETA- 2 MICRO GLOBU ELIAS beta-2 microglobuli n 1.54 mg/L < or = 2.51 normal Not Available [facility] [address] [place], [address], 11/21/2023 15:54:07 11/20/19 24 11/22/2023 ANTIC ARDIO LIPIN ABS anticardioli pin, IgG <2.0 gpl-U /mL normal Value Inter preta tion ----- ----- ----- ---- < 20.0 Antib barb not detec yaneth > or = 20.0 Antib barb detec yaneth Not Available [facility] [address] [place], [address], 11/22/2023 02:42:20 11/20/19 24 11/22/2023 ANTIC ARDIO LIPIN ABS anticardioli pin, IgM <2.0 mpl-U /mL normal Value Inter preta tion ----- ----- ----- ---- < 20.0 Antib barb not detec yaneth > or = 20.0 Antib barb detec yaneth The antip hosph olipi d antib barb syndr ome (APS) is a clini edwin-p athol ogic corre latio n that inclu francisco javier a clini edwin event (e.g. arter ial or venou s throm bosis , pregn claudia morbi dity) and persi stent posit lauren antip hosph olipi d antib odies (IgM, IgG Cardi olipi n or b2GPI antib odies great er than the 99th perce ntile ; or a lupus antic oagul ant). Inter natio nal conse nsus guide lines for APS sugge st waiti ng at least 12 weeks befor e retes ting to confi rm antib barb persi stenc e. The Syste hui Lupus Inter natio nal Colla borat ing Clini cs immun ologi edwin class ifica tion crite huy for syste hui lupus eryth emato carola (SLE) inclu de testi ng for isoty pe IgA, which has yet to be incor porat ed into APS crite huy. Low level antip hosph olipi d antib odies may somet imes be detec yaneth in the setti ng of infec tion, drug thera py or aging . For addit ional infor gabe bangura refer to http: //[facility] foundationivana stdia gnost ics.c om/fa q/FAQ 109 (This link is being provi ded for infor nicole nal/ educa chan l purpo ses only. ) Not Available [facility] [address] [place] [address], [address], 11/22/2023 02:42:20 11/20/19 24 11/22/2023 LUPUS ANTIC OAGUL ANT EVALU ATION lupus anticoagulan t SEE BELOW not detect ed normal A Lupus Antic oagul ant is not detec yaneth. For more infor nicole shane on this test, go to: http: //[facility].arjun stdia gnost ics.c om/fa q/FAQ 01v2 (This link is being provi ded for infor matio nal/ educa chan l purpo ses only. ) ----- ----- ----- ----- ----- ----- ----- ----- ----- ----- ----- - This inter preta tion is based on the follo wing test resul ts: Not Available [facility] [address] [place] [address], [address], 11/22/2023 20:24:30 11/20/19 24 11/22/2023 LUPUS ANTIC OAGUL ANT EVALU ATION PTT (lac) screen 35 sec < or = 40 normal Not Available [facility] [address] [place] [address], [address], 11/22/2023 20:24:30 11/20/19 24 11/22/2023 LUPUS ANTIC OAGUL ANT EVALU ATION drvvt screen 36 sec < or = 45 normal Not Available [facility] [address] [place] [address], [address], 11/22/2023 20:24:30 12/05/19 24 12/05/2023 BETA HCG, PREGN CLAUDIA beta HCG, 16 m[IU] /mL 0-5 high EXPEC YANETH HCG LEVEL S WEEKS OF GESTA TION HCG LEVEL (mIU/ mL) 3 5.8 - 71.2 4 9.5 - 750 5 217 - 7138 6 158 - 31,79 5 7 3697 - 163,5 63 8 32,06 5 - 149,5 71 9 63,80 3 - 151,4 10 10 46,50 9 - 186,9 77 12 27,83 2 - 210,6 12 14 13,95 0 - 62,53 0 15 12,03 9 - 70,97 1 16 9040 - 56,45 1 17 8175 - 55,86 8 18 8099 - 58,17 6 Not Available [facility] [address] [place] [address], [address], 12/05/2023 13:03:56 01/14/20 24 01/14/2024 COMPL ETE BLOOD COUNT white blood cells 6.3 10*3/ uL 3.8-10 .8 normal Not Available [facility] [address] [place] [address], [address], 01/14/2024 10:53:39 01/14/20 24 01/14/2024 COMPL ETE BLOOD COUNT red blood cells 5.13 10*6/ uL 3.80-5 .20 normal Not Available [facility] [address] [place] [address], [address], 01/14/2024 10:53:39 01/14/20 24 01/14/2024 COMPL ETE BLOOD COUNT hemoglobin 13.4 g/dL 12.0-1 6.0 normal Not Available [facility] [address] [place] [address], [address], 01/14/2024 10:53:39 01/14/20 24 01/14/2024 COMPL ETE BLOOD COUNT hematocrit 39.9 % 35.0-4 7.0 normal Not Available [facility] [address] [place] [address], [address], 01/14/2024 10:53:39 01/14/20 24 01/14/2024 COMPL ETE BLOOD COUNT MCV 78 fL 80-100 low Not Available [facility] [address] [place] [address], [address], 01/14/2024 10:53:39 01/14/20 24 01/14/2024 COMPL ETE BLOOD COUNT MCH 26 pg 26-35 normal Not Available [facility] [address] [place] [address], [address], 01/14/2024 10:53:39 01/14/20 24 01/14/2024 COMPL ETE BLOOD COUNT MCHC 34 g/dL 32-36 normal Not Available [facility] [address] [place] [address], [address], 01/14/2024 10:53:39 01/14/20 24 01/14/2024 COMPL ETE BLOOD COUNT RDW 14.6 % 11.0-1 5.0 normal Not Available [facility] [address] [place] [address], [address], 01/14/2024 10:53:39 01/14/20 24 01/14/2024 COMPL ETE BLOOD COUNT MPV 6.2 fL 6.2-10 .5 normal Not Available [facility] [address] [place] [address], [address], 01/14/2024 10:53:39 01/14/20 24 01/14/2024 COMPL ETE BLOOD COUNT platelet count 330 10*3/ uL 150-40 0 normal Not Available [facility] [address] [place] [address], [address], 01/14/2024 10:53:39 01/14/20 24 01/14/2024 COMPL ETE BLOOD COUNT neutrophil,a bsolute 4.0 10*3/ uL 1.6-8. 4 normal Not Available [facility] [address] [place] [address], [address], 01/14/2024 10:53:39 01/14/20 24 01/14/2024 COMPL ETE BLOOD COUNT lymphocyte,a bsolute 1.8 10*3/ uL 0.4-5. 1 normal Not Available [facility] [address] [place] [address], [address], 01/14/2024 10:53:39 01/14/20 24 01/14/2024 COMPL ETE BLOOD COUNT monocyte,abs olute 0.4 10*3/ uL 0.0-1. 2 normal Not Available [facility] [address] [place] [address], [address], 01/14/2024 10:53:39 01/14/20 24 01/14/2024 COMPL ETE BLOOD COUNT eosinophil,a bsolute 0.1 10*3/ uL 0.0-0. 8 normal Not Available [facility] [address] [place] [address], [address], 01/14/2024 10:53:39 01/14/20 24 01/14/2024 COMPL ETE BLOOD COUNT basophil,abs olute 0.0 10*3/ uL 0.0-0. 3 normal Not Available [facility] [address] [place] [address], [address], 01/14/2024 10:53:39 01/14/20 24 01/14/2024 COMPL ETE BLOOD COUNT % neutrophils 62.5 % 42.0-7 8.0 normal Not Available [facility] [address] [place] [address], [address], 01/14/2024 10:53:39 01/14/20 24 01/14/2024 COMPL ETE BLOOD COUNT % lymphocytes 28.3 % 11.0-4 7.0 normal Not Available [facility] [address] [place] [address], [address], 01/14/2024 10:53:39 01/14/20 24 01/14/2024 COMPL ETE BLOOD COUNT % monocytes 7.0 % 0.0-11 .0 normal Not Available [facility] [address] [place] [address], [address], 01/14/2024 10:53:39 01/14/20 24 01/14/2024 COMPL ETE BLOOD COUNT % eosinophils 1.7 % 0.0-7. 0 normal Not Available [facility] [address] [place] [address], [address], 01/14/2024 10:53:39 01/14/20 24 01/14/2024 COMPL ETE BLOOD COUNT % basophils 0.5 % 0.0-3. 0 normal Not Available [facility] [address] [place] [address], [address], 01/14/2024 10:53:39 01/14/20 24 01/14/2024 COMPL ETE BLOOD COUNT nucleated red cells 0.1 % 0.0-0. 9 normal Not Available [facility] [address] [place] [address], [address], 01/14/2024 10:53:39 01/14/20 24 01/14/2024 COMPL ETE BLOOD COUNT nucleated RBCs, absolute 0.00 10*3/ uL not estab. normal Not Available [facility] [address] [place] [address], [address], 01/14/2024 10:53:39 01/14/20 24 01/14/2024 LIPID PROFI LE HDL cholesterol 47 mg/dL 50-242 low Not Available [facility] [address] [place] [address], [address], 01/14/2024 10:55:34 01/14/20 24 01/14/2024 LIPID PROFI LE triglyceride s 129 mg/dL 0-149 normal TRIGL YCERI DE RANGE S WATSON L: < 150 BORDE RLINE HIGH: 150 - 199 HIGH: 200 - 499 VERY HIGH: > OR = 500 Not Available [facility] [address] [place] [address], [address], 01/14/2024 10:55:34 01/14/20 24 01/14/2024 LIPID PROFI LE cholesterol 254 mg/dL 0-199 high ANAHI STERO L (TOTA L) RANGE S KLAUS ABLE: < 200 BORDE RLINE : 200 - 239 HIGHE R RISK: > 239 Not Available [facility] [address] [place] [address], [address], 01/14/2024 10:55:34 01/14/20 24 01/14/2024 LIPID PROFI LE LDL cholesterol 181 mg/dL _(edwin c) 0-99 high LDL ANAHI STERO L RANGE S OPTIM AL: < 100 NEAR/ ABOVE OPTIM AL: 100 - 129 BORDE RLINE HIGH: 130 - 159 HIGH: 160 - 189 VERY HIGH: > OR = 190 Not Available [facility] [address] [place] [address], [address], 01/14/2024 10:55:34 01/14/20 24 01/14/2024 COMP. METAB OLIC PANEL glucose 86 mg/dL 74-100 normal Not Available [facility] [address] [place] [address], [address], 01/14/2024 10:55:36 01/14/20 24 01/14/2024 COMP. METAB OLIC PANEL blood urea nitrogen 11 mg/dL 6-20 normal Not Available [facility] [address] [place] [address], [address], 01/14/2024 10:55:36 01/14/20 24 01/14/2024 COMP. METAB OLIC PANEL creatinine 0.87 mg/dL 0.50-0 .95 normal Not Available [facility] [address] [place] [address], [address], 01/14/2024 10:55:36 01/14/20 24 01/14/2024 COMP. METAB OLIC PANEL BUN/creatini ne ratio 13 (calc ) 10-20 normal Not Available [facility] [address] [place] [address], [address], 01/14/2024 10:55:36 01/14/20 24 01/14/2024 COMP. METAB OLIC PANEL sodium 139 mmol/ L 136-14 5 normal Not Available [facility] [address] [place] [address], [address], 01/14/2024 10:55:36 01/14/20 24 01/14/2024 COMP. METAB OLIC PANEL potassium 4.2 mmol/ L 3.4-5. 0 normal Not Available [facility] [address] [place] [address], [address], 01/14/2024 10:55:36 01/14/20 24 01/14/2024 COMP. METAB OLIC PANEL chloride 102 mmol/ L 98-107 normal Not Available [facility] [address] [place] [address], [address], 01/14/2024 10:55:36 01/14/20 24 01/14/2024 COMP. METAB OLIC PANEL carbon dioxide 26 mmol/ L 22-31 normal Not Available [facility] [address] [place] [address], [address], 01/14/2024 10:55:36 01/14/20 24 01/14/2024 COMP. METAB OLIC PANEL anion gap 11 (calc ) 7-25 normal Not Available [facility] [address] [place] [address], [address], 01/14/2024 10:55:36 01/14/20 24 01/14/2024 COMP. METAB OLIC PANEL calcium 9.1 mg/dL 8.6-10 .2 normal Not Available [facility] [address] [place] [address], [address], 01/14/2024 10:55:36 01/14/20 24 01/14/2024 COMP. METAB OLIC PANEL total protein 8.3 g/dL 6.4-8. 3 normal Not Available [facility] [address] [place] [address], [address], 01/14/2024 10:55:36 01/14/20 24 01/14/2024 COMP. METAB OLIC PANEL albumin 4.3 g/dL 3.5-5. 2 normal Not Available [facility] [address] [place] [address], [address], 01/14/2024 10:55:36 01/14/20 24 01/14/2024 COMP. METAB OLIC PANEL globulin 4.0 1.5-4. 5 normal Not Available [facility] [address] [place] [address], [address], 01/14/2024 10:55:36 01/14/20 24 01/14/2024 COMP. METAB OLIC PANEL albumin/glob ulin ratio 1.1 (calc ) 1.1-2. 5 normal Not Available [facility] [address] [place] [address], [address], 01/14/2024 10:55:36 01/14/20 24 01/14/2024 COMP. METAB OLIC PANEL bilirubin, total 0.2 mg/dL 0.1-1. 2 normal Not Available [facility] [address] [place] [address], [address], 01/14/2024 10:55:36 01/14/20 24 01/14/2024 COMP. METAB OLIC PANEL alkaline phosphatase 85 U/L 30-121 normal Not Available [facility] [address] [place] [address], [address], 01/14/2024 10:55:36 01/14/20 24 01/14/2024 COMP. METAB OLIC PANEL AST 16 U/L 0-32 normal Not Available [facility] [address] [place] [address], [address], 01/14/2024 10:55:36 01/14/20 24 01/14/2024 COMP. METAB OLIC PANEL ALT 16 U/L 0-33 normal Not Available [facility] [address] [place] [address], [address], 01/14/2024 10:55:36 01/14/20 24 01/14/2024 COMP. METAB OLIC PANEL GFR 85 >= 60 normal NOT E New calcu latio n for GFR (CKD- EPI 2020) is formu lated witho ut race adjus tment facto rs at the recom menda tion of the Cindy Cassidy y Leatha stone and Charbel Lorenzana ty of Nephr ology . This calcu latio n has not been valid ated in pregn ant women . For pedia tric patie nts refer to https ://nathalia edward.unruly rg/pr kassyess reyal s/KDO QI/gf r_cal culat orPed Not Available [facility] [address] [place] [address], [address], 01/14/2024 10:55:36 01/14/20 24 01/14/2024 VITAM IN D 25-OH vitamin D 25-oh, total 53 NG/mL >=30 NG/mL normal Not Available [facility] [address] [place] [address], [address], 01/14/2024 11:30:17 01/16/20 24 01/16/2024 TSH TSH 0.916 u[IU] /mL 0.270- 4.200 normal Not Available [facility] [place], [address], 01/16/2024 15:31:13 01/16/20 24 01/16/2024 T4,FR EE T4,free 1.75 NG/dL 0.93-1 .70 high Not Available [facility] [address] [place] [address], [address], 01/16/2024 15:31:15 06/24/20 24 06/24/2024 TSH WITH REFLE X FT4 TSH with reflex FT4 0.514 u[IU] /mL 0.270- 4.200 normal Not Available [facility] [address] [place] [address], [address], 06/24/2024 17:58:28 10/12/20 24 10/15/2024 ANTI- MULLE BERRY, FEMAL E anti-mulleri an, female 2.37 NG/mL 0.01-2 .99 normal Not Available [facility] [address] [place] [address], [address], 10/15/2024 14:53:57 10/12/20 24 10/12/2024 TSH TSH 0.513 u[IU] /mL 0.270- 4.200 normal Not Available [facility] [address] [place] [address], [address], 10/12/2024 10:43:18 10/12/20 24 10/12/2024 FOLLI HONORIO STIM. HORMO NE follicle stim. hormone 9.3 m[IU] /mL 1.7-13 4.8 normal FSH EXPEC YANETH VALUE S FEMAL ES: FOLLI CULAR PHASE : 3.5 - 12.5 MIU/M L OVULA TION PHASE : 4.7 - 21.5 MIU/M L LUTEA L PHASE : 1.7 - 7.7 MIU/M L POST MENOP AUSE: 25.8 - 134.8 MIU/M L . Not Available [facility] [address] [place] [address], [address], 10/12/2024 10:43:17 10/12/20 24 10/12/2024 LUTEN IZING HORMO NE lutenizing hormone 5.3 m[IU] /mL 1.0-95 .6 normal LH EXPEC YANETH VALUE S WOMEN : FOLLI CULAR PHASE 2.4-1 2.6 mIU/m L OVULA TION PHASE 14.0- 95.6 mIU/m L LUTEA L PHASE 1.0-1 1.4 mIU/m L POSTM ENOPA USE 7.7-5 8.5 mIU/m L . Not Available [facility] [address] [place], [address], 10/12/2024 10:43:16 10/12/20 24 10/12/2024 PROGE STERO NE, SERUM /PLAS MA progesterone , serum/plasma 0.40 NG/mL 0.00-2 3.90 normal Refer ence range is based on non-p regna nt women . PROGE STERO NE EXPEC YANETH VALUE S WOMEN : FOLLI CULAR PHASE 0.06 - 0.90 ng/mL OVULA TION PHASE 0.12 - 12.0 ng/mL LUTEA L PHASE 1.83 - 23.9 ng/mL POSTM ENOPA USE 0.00 - 0.13 ng/mL 1st Trime ster 11.0 - 44.3 ng/mL 2nd Trime ster 25.4 - 83.3 ng/mL 3rd Trime ster 58.7 - 214.0 ng/mL . Not Available [facility] [address] [place], [address], 10/12/2024 10:43:15 10/12/20 24 10/12/2024 ESTRA DIOL estradiol 107.0 pg/mL 0.0-39 8.0 normal Refer ence range is based on non-p regna nt women . NOTE: Due to the risk of cross -reac tivit y, the Avelina Estra diol assay used by our labor damaris olmstead not be order ed when monit oring estra diol level s in patie nts being treat ed with Fulve stran t. An alter colin metho d such as LC/MS , which is not expec yaneth to show cross -reac tivit y to chaim Hernandez be used to measu re estra diol priya ntrat ions. Stero id drugs may inter fere with this test. ESTRA DIOL EXPEC YANETH VALUE S HEALT HY WOMEN : FOLLI CULAR PHASE 12.4 - 233 pg/mL OVULA TION PHASE 41.0 - 398 pg/mL LUTEA L PHASE 22.3 - 341 pg/mL POSTM ENOPA USE < 5.0 - 138 pg/mL HEALT HY PREGN ANT WOMEN : 1st TRIME STER 154 - 3243 pg/mL 2nd TRIME STER 1561 - 21,28 0 pg/mL 3rd TRIME STER 8525 - > 30,00 0 pg/mL . Not Available [facility] [address] [place] [address], [address], 10/12/2024 10:43:14 10/12/20 24 10/12/2024 BETA HCG, PREGN CLAUDIA beta HCG, <5 m[IU] /mL 0-5 normal EXPEC YANETH HCG LEVEL S WEEKS OF GESTA TION HCG LEVEL (mIU/ mL) 3 5.8 - 71.2 4 9.5 - 750 5 217 - 7138 6 158 - 31,79 5 7 3697 - 163,5 63 8 32,06 5 - 149,5 71 9 63,80 3 - 151,4 10 10 46,50 9 - 186,9 77 12 27,83 2 - 210,6 12 14 13,95 0 - 62,53 0 15 12,03 9 - 70,97 1 16 9040 - 56,45 1 17 8175 - 55,86 8 18 8099 - 58,17 6 Not Available [facility] [address] [place] [address], [address], 10/12/2024 10:40:29 10/12/20 24 10/12/2024 COMP. METAB OLIC PANEL glucose 83 mg/dL 74-100 normal Not Available [facility] [address] [place] [address], [address], 10/12/2024 10:40:12 10/12/20 24 10/12/2024 COMP. METAB OLIC PANEL blood urea nitrogen 13 mg/dL 6-20 normal Not Available [facility] [place], [address], 10/12/2024 10:40:12 10/12/20 24 10/12/2024 COMP. METAB OLIC PANEL creatinine 0.78 mg/dL 0.50-0 .95 normal Not Available [facility] [address] [place] [address], [address], 10/12/2024 10:40:12 10/12/20 24 10/12/2024 COMP. METAB OLIC PANEL BUN/creatini ne ratio 17 (calc ) 10-20 normal Not Available [facility] [address] [place] [address], [address], 10/12/2024 10:40:12 10/12/20 24 10/12/2024 COMP. METAB OLIC PANEL sodium 140 mmol/ L 136-14 5 normal Not Available [facility] [address] [place] [address], [id number], 10/12/2024 10:40:12 10/12/20 24 10/12/2024 COMP. METAB OLIC PANEL potassium 3.8 mmol/ L 3.4-5. 0 normal Not Available [facility] [address] [place] [address], [id number], 10/12/2024 10:40:12 10/12/20 24 10/12/2024 COMP. METAB OLIC PANEL chloride 102 mmol/ L 98-107 normal Not Available [facility] [address] [place] [address], [id number], 10/12/2024 10:40:12 10/12/20 24 10/12/2024 COMP. METAB OLIC PANEL carbon dioxide 26 mmol/ L 22-31 normal Not Available [facility] [address] [place] [address], [id number], 10/12/2024 10:40:12 10/12/20 24 10/12/2024 COMP. METAB OLIC PANEL anion gap 12 (calc ) 7-25 normal Not Available [facility] [address] [place] [address], [id number], 10/12/2024 10:40:12 10/12/20 24 10/12/2024 COMP. METAB OLIC PANEL calcium 9.2 mg/dL 8.6-10 .2 normal Not Available [facility] [address] [place] [address], [id number], 10/12/2024 10:40:12 10/12/20 24 10/12/2024 COMP. METAB OLIC PANEL total protein 7.4 g/dL 6.4-8. 3 normal Not Available [facility] [address] [place] [address], [id number], 10/12/2024 10:40:12 10/12/20 24 10/12/2024 COMP. METAB OLIC PANEL albumin 4.2 g/dL 3.5-5. 2 normal Not Available [facility] [address] [place] [address], [address], 10/12/2024 10:40:12 10/12/20 24 10/12/2024 COMP. METAB OLIC PANEL globulin 3.2 1.5-4. 5 normal Not Available [facility] [address] [place] [address], [address], 10/12/2024 10:40:12 10/12/20 24 10/12/2024 COMP. METAB OLIC PANEL albumin/glob ulin ratio 1.3 (calc ) 1.1-2. 5 normal Not Available [facility] [address] [place] [address], [address], 10/12/2024 10:40:12 10/12/20 24 10/12/2024 COMP. METAB OLIC PANEL bilirubin, total 0.2 mg/dL 0.1-1. 2 normal Not Available [facility] [address] [place] [address], [address], 10/12/2024 10:40:12 10/12/20 24 10/12/2024 COMP. METAB OLIC PANEL alkaline phosphatase 75 U/L 30-121 normal Not Available [facility] [address] [place] [address], [address], 10/12/2024 10:40:12 10/12/20 24 10/12/2024 COMP. METAB OLIC PANEL AST 18 U/L 0-32 normal Not Available [facility] [address] [place] [address], [address], 10/12/2024 10:40:12 10/12/20 24 10/12/2024 COMP. METAB OLIC PANEL ALT 19 U/L 0-33 normal Not Available [facility] [address] [place], [address], 10/12/2024 10:40:12 10/12/20 24 10/12/2024 COMP. METAB OLIC PANEL GFR 97 >= 60 normal NOT E New calcu latio n for GFR (CKD- EPI 2020) is formu lated witho ut race adjus tment facto rs at the recom menda tion of the Cindy Cassidy y Leatha stone and [facility] Loren[facility] ty of Nephr ology . This calcu latio n has not been valid ated in pregn ant women . For pedia tric patie nts refer to [email or web address] :[email or web address] rg/pr ofess ional s/KDO QI/gf r_cal culat orPed Not Available [facility] [address] [place] [address], [address], 10/12/2024 10:40:12 10/12/20 24 10/12/2024 HEMOG MAURICIO white blood cells 5.5 10*3/ uL 3.8-10 .8 normal Not Available [facility] [address] [place] [address], [address], 10/12/2024 10:07:26 10/12/20 24 10/12/2024 HEMOG MAURICIO red blood cells 5.03 10*6/ uL 3.80-5 .20 normal Not Available [facility] [address] [place] [address], [address], 10/12/2024 10:07:26 10/12/20 24 10/12/2024 HEMOG MAURICIO hemoglobin 13.3 g/dL 12.0-1 6.0 normal Not Available [facility] [address] [place] [address], [address], 10/12/2024 10:07:26 10/12/20 24 10/12/2024 HEMOG MAURICIO hematocrit 40.9 % 35.0-4 7.0 normal Not Available [facility] [address] [place] [address], [address], 10/12/2024 10:07:26 10/12/20 24 10/12/2024 HEMOG MAURICIO MCV 81 fL 80-100 normal Not Available [facility] [address] [place] [address], [address], 10/12/2024 10:07:26 10/12/20 24 10/12/2024 HEMOG MAURICIO MCH 27 pg 26-35 normal Not Available [facility] [address] [place] [address], [address], 10/12/2024 10:07:26 10/12/20 24 10/12/2024 HEMOG MAURICIO MCHC 33 g/dL 32-36 normal Not Available [facility] [address] [place] [address], [address], 10/12/2024 10:07:26 10/12/20 24 10/12/2024 HEMOG MAURICIO RDW 14.5 % 11.0-1 5.0 normal Not Available [facility] [address] [place] [address], [address], 10/12/2024 10:07:26 10/12/20 24 10/12/2024 HEMOG MAURICIO MPV 6.8 fL 6.2-10 .5 normal Not Available [facility] [address] [place] [address], [address], 10/12/2024 10:07:26 10/12/20 24 10/12/2024 HEMOG MAURICIO platelet count 267 10*3/ uL 150-40 0 normal Not Available [facility] [address] [place] [address], [address], 10/12/2024 10:07:26 10/14/20 24 10/14/2024 LUTEN IZING HORMO NE lutenizing hormone 2.3 m[IU] /mL 1.0-95 .6 normal LH EXPEC YANETH VALUE S WOMEN : FOLLI CULAR PHASE 2.4-1 2.6 mIU/m L OVULA TION PHASE 14.0- 95.6 mIU/m L LUTEA L PHASE 1.0-1 1.4 mIU/m L POSTM ENOPA USE 7.7-5 8.5 mIU/m L . Not Available [facility] [address] [place], [address], 10/14/2024 08:57:14 10/14/20 24 10/14/2024 PROGE STERO NE, SERUM /PLAS MA progesterone , serum/plasma 0.40 NG/mL 0.00-2 3.90 normal Refer ence range is based on non-p regna nt women . PROGE STERO NE EXPEC YANETH VALUE S WOMEN : FOLLI CULAR PHASE 0.06 - 0.90 ng/mL OVULA TION PHASE 0.12 - 12.0 ng/mL LUTEA L PHASE 1.83 - 23.9 ng/mL POSTM ENOPA USE 0.00 - 0.13 ng/mL 1st Trime ster 11.0 - 44.3 ng/mL 2nd Trime ster 25.4 - 83.3 ng/mL 3rd Trime ster 58.7 - 214.0 ng/mL . Not Available [facility] [place], [address], 10/14/2024 08:57:12 10/14/20 24 10/14/2024 ESTRA DIOL estradiol 283.0 pg/mL 0.0-39 8.0 normal Refer ence range is based on non-p regna nt women . NOTE: Due to the risk of cross -reac tivit y, the Avelina Estra diol assay used by our labor atory chaim d not be order ed when monit oring estra diol level s in patie nts being treat ed with Fulve stran t. An alter colin metho d such as LC/MS , which is not expec yaneth to show cross -reac tivit y to Fulve stran t, shoul d be used to measu re estra diol priya ntrat ions. Stero id drugs may inter fere with this test. ESTRA DIOL EXPEC YANETH VALUE S HEALT HY WOMEN : FOLLI CULAR PHASE 12.4 - 233 pg/mL OVULA TION PHASE 41.0 - 398 pg/mL LUTEA L PHASE 22.3 - 341 pg/mL POSTM ENOPA USE < 5.0 - 138 pg/mL HEALT HY PREGN ANT WOMEN : 1st TRIME STER 154 - 3243 pg/mL 2nd TRIME STER 1561 - 21,28 0 pg/mL 3rd TRIME STER 8525 - > 30,00 0 pg/mL . Not Available [facility] [address] [place], [address], 10/14/2024 08:57:11 10/16/20 24 10/16/2024 LUTEN IZING HORMO NE lutenizing hormone 16.6 m[IU] /mL 1.0-95 .6 normal LH EXPEC YANETH VALUE S WOMEN : FOLLI CULAR PHASE 2.4-1 2.6 mIU/m L OVULA TION PHASE 14.0- 95.6 mIU/m L LUTEA L PHASE 1.0-1 1.4 mIU/m L POSTM ENOPA USE 7.7-5 8.5 mIU/m L . Not Available [facility] [address] [place], [address], 10/16/2024 10:32:27 10/16/20 24 10/16/2024 PROGE STERO NE, SERUM /PLAS MA progesterone , serum/plasma 1.83 NG/mL 0.00-2 3.90 normal Refer ence range is based on non-p regna nt women . PROGE STERO NE EXPEC YANETH VALUE S WOMEN : FOLLI CULAR PHASE 0.06 - 0.90 ng/mL OVULA TION PHASE 0.12 - 12.0 ng/mL LUTEA L PHASE 1.83 - 23.9 ng/mL POSTM ENOPA USE 0.00 - 0.13 ng/mL 1st Trime ster 11.0 - 44.3 ng/mL 2nd Trime ster 25.4 - 83.3 ng/mL 3rd Trime ster 58.7 - 214.0 ng/mL . Not Available [facility] [address] [place], [address], 10/16/2024 10:32:26 10/16/20 24 10/16/2024 ESTRA DIOL estradiol 1158.0 pg/mL 0.0-39 8.0 high Refer ence range is based on non-p regna nt women . NOTE: Due to the risk of cross -reac tivit y, the Avelina Estra diol assay used by our labor atory chaim olmstead not be order ed when monit oring estra diol level s in patie nts being treat ed with Fulve stran t. An alter colin metho d such as LC/MS , which is not expec yaneth to show cross -reac tivit y to Fulve stran tchaim be used to measu re estra diol priya ntrat ions. Stero id drugs may inter fere with this test. ESTRA DIOL EXPEC YANETH VALUE S HEALT HY WOMEN : FOLLI CULAR PHASE 12.4 - 233 pg/mL OVULA TION PHASE 41.0 - 398 pg/mL LUTEA L PHASE 22.3 - 341 pg/mL POSTM ENOPA USE < 5.0 - 138 pg/mL HEALT HY PREGN ANT WOMEN : 1st TRIME STER 154 - 3243 pg/mL 2nd TRIME STER 1561 - 21,28 0 pg/mL 3rd TRIME STER 8525 - > 30,00 0 pg/mL . Not Available [facility] [address] [place], [address], 10/16/2024 10:32:25 12/02/19 25 12/02/2024 TSH TSH 1.840 u[IU] /mL 0.270- 4.200 normal Not Available [facility] [address] [place], [address], 12/03/2024 09:10:08 12/02/19 25 12/03/2024 FOLLI HONORIO STIM. HORMO NE follicle stim. hormone 6.1 m[IU] /mL 1.7-13 4.8 normal FSH EXPEC YANETH VALUE S FEMAL ES: FOLLI CULAR PHASE : 3.5 - 12.5 MIU/M L OVULA TION PHASE : 4.7 - 21.5 MIU/M L LUTEA L PHASE : 1.7 - 7.7 MIU/M L POST MENOP AUSE: 25.8 - 134.8 MIU/M L . Not Available [facility] [address] [place], [address], 12/03/2024 09:10:07 12/02/19 25 12/03/2024 LUTEN IZING HORMO NE lutenizing hormone 5.2 m[IU] /mL 1.0-95 .6 normal LH EXPEC YANETH VALUE S WOMEN : FOLLI CULAR PHASE 2.4-1 2.6 mIU/m L OVULA TION PHASE 14.0- 95.6 mIU/m L LUTEA L PHASE 1.0-1 1.4 mIU/m L POSTM ENOPA USE 7.7-5 8.5 mIU/m L . Not Available [facility] [address] [place], [address], 12/03/2024 09:10:07 12/02/19 25 12/03/2024 PROGE STERO NE, SERUM /PLAS MA progesterone , serum/plasma 0.06 NG/mL 0.00-2 3.90 normal Refer ence range is based on non-p regna nt women . PROGE STERO NE EXPEC YANETH VALUE S WOMEN : FOLLI CULAR PHASE 0.06 - 0.90 ng/mL OVULA TION PHASE 0.12 - 12.0 ng/mL LUTEA L PHASE 1.83 - 23.9 ng/mL POSTM ENOPA USE 0.00 - 0.13 ng/mL 1st Trime ster 11.0 - 44.3 ng/mL 2nd Trime ster 25.4 - 83.3 ng/mL 3rd Trime ster 58.7 - 214.0 ng/mL . Not Available [facility] [address] [place], [address], 12/03/2024 09:10:06 12/02/19 25 12/03/2024 ESTRA DIOL estradiol 86.8 pg/mL 0.0-39 8.0 normal Refer ence range is based on non-p regna nt women . NOTE: Due to the risk of cross -reac tivit y, the Avelina Estra diol assay used by our labor mariy chaim olmstead not be order ed when monit oring estra diol level s in patie nts being treat ed with Fulve stran t. An alter colin metho d such as LC/MS , which is not expec yaneth to show cross -reac tivit y to Fulve sloane tchaim be used to measu re estra diol priya ntrat ions. Stero id drugs may inter fere with this test. ESTRA DIOL EXPEC YANETH VALUE S HEALT HY WOMEN : FOLLI CULAR PHASE 12.4 - 233 pg/mL OVULA TION PHASE 41.0 - 398 pg/mL LUTEA L PHASE 22.3 - 341 pg/mL POSTM ENOPA USE < 5.0 - 138 pg/mL HEALT HY PREGN ANT WOMEN : 1st TRIME STER 154 - 3243 pg/mL 2nd TRIME STER 1561 - 21,28 0 pg/mL 3rd TRIME STER 8525 - > 30,00 0 pg/mL . Not Available [facility] [address] [place], [address], 12/03/2024 09:10:05 12/02/1912/02/2024 BETA HCG, PREGN CLAUDIA beta HCG, <5 m[IU] /mL 0-5 normal EXPEC YANETH HCG LEVEL S WEEKS OF GESTA TION HCG LEVEL (mIU/ mL) 3 5.8 - 71.2 4 9.5 - 750 5 217 - 7138 6 158 - 31,79 5 7 3697 - 163,5 63 8 32,06 5 - 149,5 71 9 63,80 3 - 151,4 10 10 46,50 9 - 186,9 77 12 27,83 2 - 210,6 12 14 13,95 0 - 62,53 0 15 12,03 9 - 70,97 1 16 9040 - 56,45 1 17 8175 - 55,86 8 18 8099 - 58,17 6 Not Available [facility] [address] [place], [address], 12/02/2024 12:29:56 12/04/19 25 12/04/2024 LUTEN IZING HORMO NE lutenizing hormone 4.5 m[IU] /mL 1.0-95 .6 normal LH EXPEC YANETH VALUE S WOMEN : FOLLI CULAR PHASE 2.4-1 2.6 mIU/m L OVULA TION PHASE 14.0- 95.6 mIU/m L LUTEA L PHASE 1.0-1 1.4 mIU/m L POSTM ENOPA USE 7.7-5 8.5 mIU/m L . Not Available [facility] [address] [place], [address], 12/04/2024 14:44:52 12/04/19 25 12/04/2024 PROGE STERO NE, SERUM /PLAS MA progesterone , serum/plasma 0.20 NG/mL 0.00-2 3.90 normal Refer ence range is based on non-p regna nt women . PROGE STERO NE EXPEC YANETH VALUE S WOMEN : FOLLI CULAR PHASE 0.06 - 0.90 ng/mL OVULA TION PHASE 0.12 - 12.0 ng/mL LUTEA L PHASE 1.83 - 23.9 ng/mL POSTM ENOPA USE 0.00 - 0.13 ng/mL 1st Trime ster 11.0 - 44.3 ng/mL 2nd Trime ster 25.4 - 83.3 ng/mL 3rd Trime ster 58.7 - 214.0 ng/mL . Not Available [facility] [address] [place], [address], 12/04/2024 14:44:51 12/04/19 25 12/04/2024 ESTRA DIOL estradiol 101.0 pg/mL 0.0-39 8.0 normal Refer ence range is based on non-p regna nt women . NOTE: Due to the risk of cross -reac tivit y, the Avelina Estra diol assay used by our labor atory shoul d not be order ed when monit oring estra diol level s in patie nts being treat ed with Fulve stran t. An alter colin metho d such as LC/MS , which is not expec yaneth to show cross -reac tivit y to Fulve stran t, shoul d be used to measu re estra diol priya ntrat ions. Stero id drugs may inter fere with this test. ESTRA DIOL EXPEC YANETH VALUE S HEALT HY WOMEN : FOLLI CULAR PHASE 12.4 - 233 pg/mL OVULA TION PHASE 41.0 - 398 pg/mL LUTEA L PHASE 22.3 - 341 pg/mL POSTM ENOPA USE < 5.0 - 138 pg/mL HEALT HY PREGN ANT WOMEN : 1st TRIME STER 154 - 3243 pg/mL 2nd TRIME STER 1561 - 21,28 0 pg/mL 3rd TRIME STER 8525 - > 30,00 0 pg/mL . Not Available [facility] [address] [place], [address], 12/04/2024 14:44:50 12/07/19 25 12/07/2024 LUTEN IZING HORMO NE lutenizing hormone 2.8 m[IU] /mL 1.0-95 .6 normal LH EXPEC YANETH VALUE S WOMEN : FOLLI CULAR PHASE 2.4-1 2.6 mIU/m L OVULA TION PHASE 14.0- 95.6 mIU/m L LUTEA L PHASE 1.0-1 1.4 mIU/m L POSTM ENOPA USE 7.7-5 8.5 mIU/m L . Not Available [facility] [address] [place], [address], 12/07/2024 09:29:13 12/07/19 25 12/07/2024 PROGE STERO NE, SERUM /PLAS MA progesterone , serum/plasma 0.37 NG/mL 0.00-2 3.90 normal Refer ence range is based on non-p regna nt women . PROGE STERO NE EXPEC YANETH VALUE S WOMEN : FOLLI CULAR PHASE 0.06 - 0.90 ng/mL OVULA TION PHASE 0.12 - 12.0 ng/mL LUTEA L PHASE 1.83 - 23.9 ng/mL POSTM ENOPA USE 0.00 - 0.13 ng/mL 1st Trime ster 11.0 - 44.3 ng/mL 2nd Trime ster 25.4 - 83.3 ng/mL 3rd Trime ster 58.7 - 214.0 ng/mL . Not Available [facility] [address] [place], [address], 12/07/2024 09:29:12 12/07/19 25 12/07/2024 ESTRA DIOL estradiol 142.0 pg/mL 0.0-39 8.0 normal Refer ence range is based on non-p regna nt women . NOTE: Due to the risk of cross -reac tivit y, the Avelina Estra diol assay used by our labor atory chaim olmstead not be order ed when monit oring estra diol level s in patie nts being treat ed with Fulve shern t. An alter colin metho d such as LC/MS , which is not expec yaneth to show cross -reac tivit y to Fulve chaim bethea d be used to measu re estra diol priya ntrat ions. Stero id drugs may inter fere with this test. ESTRA DIOL EXPEC YANETH VALUE S HEALT HY WOMEN : FOLLI CULAR PHASE 12.4 - 233 pg/mL OVULA TION PHASE 41.0 - 398 pg/mL LUTEA L PHASE 22.3 - 341 pg/mL POSTM ENOPA USE < 5.0 - 138 pg/mL HEALT HY PREGN ANT WOMEN : 1st TRIME STER 154 - 3243 pg/mL 2nd TRIME STER 1561 - 21,28 0 pg/mL 3rd TRIME STER 8525 - > 30,00 0 pg/mL . Not Available [facility] [address] [place], [address], 12/07/2024 09:29:11 01/05/20 25 01/05/2025 VITAM IN D 25-OH vitamin D 25-oh, total 83 NG/mL >=30 NG/mL normal Not Available [facility] [address] [place] [address], [address], 01/05/2025 16:23:30 01/05/20 25 01/05/2025 LIPID PROFI LE HDL cholesterol 49 mg/dL 50-242 low Not Available [facility] [address] [place] [address], [address], 01/05/2025 16:28:55 01/05/20 25 01/05/2025 LIPID PROFI LE triglyceride s 258 mg/dL 0-149 high TRIGL YCERI DE RANGE S WATSON L: < 150 BORDE RLINE HIGH: 150 - 199 HIGH: 200 - 499 VERY HIGH: > OR = 500 Not Available [facility] [address] [place] [address], [address], 01/05/2025 16:28:55 01/05/20 25 01/05/2025 LIPID PROFI LE cholesterol 294 mg/dL 0-199 high ANAHI STERO L (TOTA L) RANGE S KLAUS ABLE: < 200 BORDE RLINE : 200 - 239 HIGHE R RISK: > 239 Not Available [facility] [address] [place] [address], [address], 01/05/2025 16:28:55 01/05/20 25 01/05/2025 LIPID PROFI LE LDL cholesterol 193 mg/dL _(edwin c) 0-99 high LDL ANAHI STERO L RANGE S OPTIM AL: < 100 NEAR/ ABOVE OPTIM AL: 100 - 129 BORDE RLINE HIGH: 130 - 159 HIGH: 160 - 189 VERY HIGH: > OR = 190 Not Available [facility] [address] [place] [address], [address], 01/05/2025 16:28:55 02/16/20 25 02/18/2025 ANTI- MULLE BERRY, FEMAL E anti-mulleri an, female 2.73 NG/mL 0.01-2 .99 normal Not Available [facility] [address] [place] [address], [address], 02/18/2025 19:04:34 02/16/20 25 02/16/2025 PROGE STERO NE, SERUM /PLAS MA progesterone , serum/plasma 0.15 NG/mL 0.00-2 3.90 normal Refer ence range is based on non-p regna nt women . PROGE STERO NE EXPEC YANETH VALUE S WOMEN : FOLLI CULAR PHASE 0.06 - 0.90 ng/mL OVULA TION PHASE 0.12 - 12.0 ng/mL LUTEA L PHASE 1.83 - 23.9 ng/mL POSTM ENOPA USE 0.00 - 0.13 ng/mL 1st Trime ster 11.0 - 44.3 ng/mL 2nd Trime ster 25.4 - 83.3 ng/mL 3rd Trime ster 58.7 - 214.0 ng/mL . Not Available [facility] [place], [address], 02/16/2025 11:37:17 02/16/20 25 02/15/2025 TSH TSH 2.430 u[IU] /mL 0.270- 4.200 normal Not Available [facility] [address] [place], [address], 02/15/2025 15:33:02 02/16/20 25 02/15/2025 FOLLI HONORIO STIM. HORMO NE follicle stim. hormone 6.1 m[IU] /mL 1.7-13 4.8 normal FSH EXPEC YANETH VALUE S FEMAL ES: FOLLI CULAR PHASE : 3.5 - 12.5 MIU/M L OVULA TION PHASE : 4.7 - 21.5 MIU/M L LUTEA L PHASE : 1.7 - 7.7 MIU/M L POST MENOP AUSE: 25.8 - 134.8 MIU/M L . Not Available [facility] [address] [place], [address], 02/15/2025 15:33:01 02/16/20 25 02/15/2025 LUTEN IZING HORMO NE lutenizing hormone 5.0 m[IU] /mL 1.0-95 .6 normal LH EXPEC YANETH VALUE S WOMEN : FOLLI CULAR PHASE 2.4-1 2.6 mIU/m L OVULA TION PHASE 14.0- 95.6 mIU/m L LUTEA L PHASE 1.0-1 1.4 mIU/m L POSTM ENOPA USE 7.7-5 8.5 mIU/m L . Not Available [facility] [address] [place], [address], 02/15/2025 15:33:00 02/16/20 25 02/15/2025 ESTRA DIOL estradiol 84.8 pg/mL 0.0-39 8.0 normal Refer ence range is based on non-p regna nt women . NOTE: Due to the risk of cross -reac tivit y, the Avelina Estra diol assay used by our labor atory chaim d not be order ed when monit oring estra diol level s in patie nts being treat ed with Fulve stran t. An alter colin metho d such as LC/MS , which is not expec yaneth to show cross -reac tivit y to Fulve stran tchaim d be used to measu re estra diol priya ntrat ions. Stero id drugs may inter fere with this test. ESTRA DIOL EXPEC YANETH VALUE S HEALT HY WOMEN : FOLLI CULAR PHASE 12.4 - 233 pg/mL OVULA TION PHASE 41.0 - 398 pg/mL LUTEA L PHASE 22.3 - 341 pg/mL POSTM ENOPA USE < 5.0 - 138 pg/mL HEALT HY PREGN ANT WOMEN : 1st TRIME STER 154 - 3243 pg/mL 2nd TRIME STER 1561 - 21,28 0 pg/mL 3rd TRIME STER 8525 - > 30,00 0 pg/mL . Not Available [facility] [address] [place], [address], 02/15/2025 15:32:59 02/16/20 25 02/15/2025 BETA HCG, PREGN CLAUDIA beta HCG, <5 m[IU] /mL 0-5 normal EXPEC YANETH HCG LEVEL S WEEKS OF GESTA TION HCG LEVEL (mIU/ mL) 3 5.8 - 71.2 4 9.5 - 750 5 217 - 7138 6 158 - 31,79 5 7 3697 - 163,5 63 8 32,06 5 - 149,5 71 9 63,80 3 - 151,4 10 10 46,50 9 - 186,9 77 12 27,83 2 - 210,6 12 14 13,95 0 - 62,53 0 15 12,03 9 - 70,97 1 16 9040 - 56,45 1 17 8175 - 55,86 8 18 8099 - 58,17 6 Not Available [facility] [address] [place] [address], [address], 02/15/2025 11:51:12 02/20/20 25 02/19/2025 HEMOG MAURICIO white blood cells 12.9 10*3/ uL 3.8-10 .8 high Not Available [facility] [address] [place] [address], [address], 02/22/2025 08:09:07 02/20/20 25 02/19/2025 HEMOG MAURICIO red blood cells 5.14 10*6/ uL 3.80-5 .20 normal Not Available [facility] [address] [place] [address], [address], 02/22/2025 08:09:07 02/20/20 25 02/19/2025 HEMOG MAURICIO hemoglobin 13.1 g/dL 12.0-1 6.0 normal Not Available [facility] [address] [place] [address], [address], 02/22/2025 08:09:07 02/20/20 25 02/19/2025 HEMOG MAURICIO hematocrit 40.9 % 35.0-4 7.0 normal Not Available [facility] [address] [place] [address], [address], 02/22/2025 08:09:07 02/20/20 25 02/19/2025 HEMOG MAURICIO MCV 80 fL 80-100 normal Not Available [facility] [address] [place] [address], [address], 02/22/2025 08:09:07 02/20/20 25 02/19/2025 HEMOG MAURICIO MCH 26 pg 26-35 normal Not Available [facility] [address] [place] [address], [address], 02/22/2025 08:09:07 02/20/20 25 02/19/2025 HEMOG MAURICIO MCHC 32 g/dL 32-36 normal Not Available [facility] [address] [place] [address], [address], 02/22/2025 08:09:07 02/20/20 25 02/19/2025 HEMOG MAURICIO RDW 15.2 % 11.0-1 5.0 high Not Available [facility] [address] [place] [address], [address], 02/22/2025 08:09:07 02/20/20 25 02/19/2025 HEMOG MAURICIO MPV 7.0 fL 6.2-10 .5 normal Not Available [facility] [address] [place] [address], [address], 02/22/2025 08:09:07 02/20/20 25 02/19/2025 HEMOG MAURICIO platelet count 285 10*3/ uL 150-40 0 normal Not Available [facility] [address] [place] [address], [address], 02/22/2025 08:09:07 02/20/20 25 02/19/2025 LUTEN IZING HORMO NE lutenizing hormone 4.4 m[IU] /mL 1.0-95 .6 normal LH EXPEC YANETH VALUE S WOMEN : FOLLI CULAR PHASE 2.4-1 2.6 mIU/m L OVULA TION PHASE 14.0- 95.6 mIU/m L LUTEA L PHASE 1.0-1 1.4 mIU/m L POSTM ENOPA USE 7.7-5 8.5 mIU/m L . Not Available [facility] [address] [place] [address], [address], 02/19/2025 11:26:48 02/20/20 25 02/19/2025 PROGE STERO NE, SERUM /PLAS MA progesterone , serum/plasma 0.26 NG/mL 0.00-2 3.90 normal Refer ence range is based on non-p regna nt women . PROGE STERO NE EXPEC YANETH VALUE S WOMEN : FOLLI CULAR PHASE 0.06 - 0.90 ng/mL OVULA TION PHASE 0.12 - 12.0 ng/mL LUTEA L PHASE 1.83 - 23.9 ng/mL POSTM ENOPA USE 0.00 - 0.13 ng/mL 1st Trime ster 11.0 - 44.3 ng/mL 2nd Trime ster 25.4 - 83.3 ng/mL 3rd Trime ster 58.7 - 214.0 ng/mL . Not Available [facility] [address] [place], [phone], 02/19/2025 11:26:48 02/20/20 25 02/19/2025 ESTRA DIOL estradiol 196.0 pg/mL 0.0-39 8.0 normal Refer ence range is based on non-p regna nt women . NOTE: Due to the risk of cross -reac tivit y, the Avelina Estra diol assay used by our labor atory chaim d not be order ed when monit oring estra diol level s in patie nts being treat ed with Fulve stran t. An alter colin metho d such as LC/MS , which is not expec yaneth to show cross -reac tivit y to Fulve stran t, chami olmstead be used to measu re estra diol priya ntrat ions. Stero id drugs may inter fere with this test. ESTRA DIOL EXPEC AYNETH VALUE S HEALT HY WOMEN : FOLLI CULAR PHASE 12.4 - 233 pg/mL OVULA TION PHASE 41.0 - 398 pg/mL LUTEA L PHASE 22.3 - 341 pg/mL POSTM ENOPA USE < 5.0 - 138 pg/mL HEALT HY PREGN ANT WOMEN : 1st TRIME STER 154 - 3243 pg/mL 2nd TRIME STER 1561 - 21,28 0 pg/mL 3rd TRIME STER 8525 - > 30,00 0 pg/mL . Not Available [facility] [address] [place] [address], [phone], 02/19/2025 11:26:46 02/20/20 25 02/19/2025 COMPL ETE BLOOD COUNT white blood cells 12.9 10*3/ uL 3.8-10 .8 high Not Available [facility] [address] [place] [address], [phone], 02/19/2025 10:56:06 02/20/20 25 02/19/2025 COMPL ETE BLOOD COUNT red blood cells 5.14 10*6/ uL 3.80-5 .20 normal Not Available [facility] [address] [place] [address], [phone], 02/19/2025 10:56:06 02/20/20 25 02/19/2025 COMPL ETE BLOOD COUNT hemoglobin 13.1 g/dL 12.0-1 6.0 normal Not Available [facility] [address] [place] [address], [phone], 02/19/2025 10:56:06 02/20/20 25 02/19/2025 COMPL ETE BLOOD COUNT hematocrit 40.9 % 35.0-4 7.0 normal Not Available [facility] [address] [place] [address], [phone], 02/19/2025 10:56:06 02/20/20 25 02/19/2025 COMPL ETE BLOOD COUNT MCV 80 fL 80-100 normal Not Available [facility] [address] [place] [address], [phone], 02/19/2025 10:56:06 02/20/20 25 02/19/2025 COMPL ETE BLOOD COUNT MCH 26 pg 26-35 normal Not Available [facility] [address] [place] [address], [phone], 02/19/2025 10:56:06 02/20/20 25 02/19/2025 COMPL ETE BLOOD COUNT MCHC 32 g/dL 32-36 normal Not Available [facility] [address] [place] [address], [phone], 02/19/2025 10:56:06 02/20/20 25 02/19/2025 COMPL ETE BLOOD COUNT RDW 15.2 % 11.0-1 5.0 high Not Available [facility] [address] [place] [address], [phone], 02/19/2025 10:56:06 02/20/20 25 02/19/2025 COMPL ETE BLOOD COUNT MPV 7.0 fL 6.2-10 .5 normal Not Available [facility] [address] [place] [address], [phone], 02/19/2025 10:56:06 02/20/20 25 02/19/2025 COMPL ETE BLOOD COUNT platelet count 285 10*3/ uL 150-40 0 normal Not Available [facility] [address] [place] [address], [address], 02/19/2025 10:56:06 02/20/20 25 02/19/2025 COMPL ETE BLOOD COUNT neutrophil,a bsolute 10.6 10*3/ uL 1.6-8. 4 high Not Available [facility] [address] [place] [address], [address], 02/19/2025 10:56:06 02/20/20 25 02/19/2025 COMPL ETE BLOOD COUNT lymphocyte,a bsolute 1.6 10*3/ uL 0.4-5. 1 normal Not Available [facility] [address] [place] [address], [address], 02/19/2025 10:56:02/20/20 25 02/19/2025 COMPL ETE BLOOD COUNT monocyte,abs olute 0.5 10*3/ uL 0.0-1. 2 normal Not Available [facility] [address] [place] [address], [address], 02/19/2025 10:56:06 02/20/20 25 02/19/2025 COMPL ETE BLOOD COUNT eosinophil,a bsolute 0.1 10*3/ uL 0.0-0. 8 normal Not Available [facility] [address] [place] [address], [address], 02/19/2025 10:56:06 02/20/20 25 02/19/2025 COMPL ETE BLOOD COUNT basophil,abs olute 0.0 10*3/ uL 0.0-0. 3 normal Not Available [facility] [address] [place] [address], [address], 02/19/2025 10:56:06 02/20/20 25 02/19/2025 COMPL ETE BLOOD COUNT % neutrophils 82.6 % 42.0-7 8.0 high Not Available [facility] [address] [place] [address], [address], 02/19/2025 10:56:06 02/20/20 25 02/19/2025 COMPL ETE BLOOD COUNT % lymphocytes 12.1 % 11.0-4 7.0 normal Not Available [facility] [address] [place] [address], [address], 02/19/2025 10:56:06 02/20/20 25 02/19/2025 COMPL ETE BLOOD COUNT % monocytes 4.0 % 0.0-11 .0 normal Not Available [facility] [address] [place] [address], [address], 02/19/2025 10:56:06 02/20/20 25 02/19/2025 COMPL ETE BLOOD COUNT % eosinophils 1.0 % 0.0-7. 0 normal Not Available [facility] [address] [place] [address], [address], 02/19/2025 10:56:06 02/20/20 25 02/19/2025 COMPL ETE BLOOD COUNT % basophils 0.3 % 0.0-3. 0 normal Not Available [facility] [address] [place], [address], 02/19/2025 10:56:06 02/20/20 25 02/19/2025 COMPL ETE BLOOD COUNT nucleated red cells 0.0 % 0.0-0. 9 normal Not Available [facility] [address] [place], [address], 02/19/2025 10:56:06 02/20/20 25 02/19/2025 COMPL ETE BLOOD COUNT nucleated RBCs, absolute 0.00 10*3/ uL not estab. normal Not Available [facility] [address] [place] [address], [address], 02/19/2025 10:56:06 02/23/20 25 02/22/2025 LUTEN IZING HORMO NE lutenizing hormone 1.8 m[IU] /mL 1.0-95 .6 normal LH EXPEC YANETH VALUE S WOMEN : FOLLI CULAR PHASE 2.4-1 2.6 mIU/m L OVULA TION PHASE 14.0- 95.6 mIU/m L LUTEA L PHASE 1.0-1 1.4 mIU/m L POSTM ENOPA USE 7.7-5 8.5 mIU/m L . Not Available [facility] [place], [address], 02/22/2025 10:29:54 02/23/20 25 02/22/2025 PROGE STERO NE, SERUM /PLAS MA progesterone , serum/plasma 0.35 NG/mL 0.00-2 3.90 normal Refer ence range is based on non-p regna nt women . PROGE STERO NE EXPEC YANETH VALUE S WOMEN : FOLLI CULAR PHASE 0.06 - 0.90 ng/mL OVULA TION PHASE 0.12 - 12.0 ng/mL LUTEA L PHASE 1.83 - 23.9 ng/mL POSTM ENOPA USE 0.00 - 0.13 ng/mL 1st Trime ster 11.0 - 44.3 ng/mL 2nd Trime ster 25.4 - 83.3 ng/mL 3rd Trime ster 58.7 - 214.0 ng/mL . Not Available [facility] [address] [place], [address], 02/22/2025 10:29:54 02/23/20 25 02/22/2025 ESTRA DIOL estradiol 482.0 pg/mL 0.0-39 8.0 high Refer ence range is based on non-p regna nt women . NOTE: Due to the risk of cross -reac tivit y, the Avelina Estra diol assay used by our labor atory chaim d not be order ed when monit oring estra diol level s in patie nts being treat ed with Fulve stran t. An alter colin metho d such as LC/MS , which is not expec yaneth to show cross -reac tivit y to Fulve stran t, chaim d be used to measu re estra diol priya ntrat ions. Stero id drugs may inter fere with this test. ESTRA DIOL EXPEC YANETH VALUE S HEALT HY WOMEN : FOLLI CULAR PHASE 12.4 - 233 pg/mL OVULA TION PHASE 41.0 - 398 pg/mL LUTEA L PHASE 22.3 - 341 pg/mL POSTM ENOPA USE < 5.0 - 138 pg/mL HEALT HY PREGN ANT WOMEN : 1st TRIME STER 154 - 3243 pg/mL 2nd TRIME STER 1561 - 21,28 0 pg/mL 3rd TRIME STER 8525 - > 30,00 0 pg/mL . Not Available [facility] [address] [place], [address], 02/22/2025 10:29:53 02/25/20 25 02/24/2025 LUTEN IZING HORMO NE lutenizing hormone 12.4 m[IU] /mL 1.0-95 .6 normal LH EXPEC YANETH VALUE S WOMEN : FOLLI CULAR PHASE 2.4-1 2.6 mIU/m L OVULA TION PHASE 14.0- 95.6 mIU/m L LUTEA L PHASE 1.0-1 1.4 mIU/m L POSTM ENOPA USE 7.7-5 8.5 mIU/m L . Not Available [facility] [address] [place], [address], 02/24/2025 10:41:03 02/25/20 25 02/24/2025 PROGE STERO NE, SERUM /PLAS MA progesterone , serum/plasma 1.02 NG/mL 0.00-2 3.90 normal Refer ence range is based on non-p regna nt women . PROGE STERO NE EXPEC YANETH VALUE S WOMEN : FOLLI CULAR PHASE 0.06 - 0.90 ng/mL OVULA TION PHASE 0.12 - 12.0 ng/mL LUTEA L PHASE 1.83 - 23.9 ng/mL POSTM ENOPA USE 0.00 - 0.13 ng/mL 1st Trime ster 11.0 - 44.3 ng/mL 2nd Trime ster 25.4 - 83.3 ng/mL 3rd Trime ster 58.7 - 214.0 ng/mL . Not Available [facility] [address] [place], [address], 02/24/2025 10:41:03 02/25/20 25 02/24/2025 ESTRA DIOL estradiol 702.0 pg/mL 0.0-39 8.0 high Refer ence range is based on non-p regna nt women . NOTE: Due to the risk of cross -reac tivit y, the Avelina Estra diol assay used by our labor atoralta olmstead not be order ed when monit oring estra diol level s in patie nts being treat ed with Fulve sloane t. An alter colin metho d such as LC/MS , which is not expec yaneth to show cross -reac tivit y to chaim Hernandez be used to measu re estra diol priya ntrat ions. Stero id drugs may inter fere with this test. ESTRA DIOL EXPEC YANETH VALUE S HEALT HY WOMEN : FOLLI CULAR PHASE 12.4 - 233 pg/mL OVULA TION PHASE 41.0 - 398 pg/mL LUTEA L PHASE 22.3 - 341 pg/mL POSTM ENOPA USE < 5.0 - 138 pg/mL HEALT HY PREGN ANT WOMEN : 1st TRIME STER 154 - 3243 pg/mL 2nd TRIME STER 1561 - 21,28 0 pg/mL 3rd TRIME STER 8525 - > 30,00 0 pg/mL . Not Available [facility] [address] [place], [address], 02/24/2025 10:41:01 02/27/20 25 02/26/2025 PROGE STERO NE, SERUM /PLAS MA progesterone , serum/plasma 1.15 NG/mL 0.00-2 3.90 normal Refer ence range is based on non-p regna nt women . PROGE STERO NE EXPEC YANETH VALUE S WOMEN : FOLLI CULAR PHASE 0.06 - 0.90 ng/mL OVULA TION PHASE 0.12 - 12.0 ng/mL LUTEA L PHASE 1.83 - 23.9 ng/mL POSTM ENOPA USE 0.00 - 0.13 ng/mL 1st Trime ster 11.0 - 44.3 ng/mL 2nd Trime ster 25.4 - 83.3 ng/mL 3rd Trime ster 58.7 - 214.0 ng/mL . Not Available [facility] [address] [place], [address], 02/26/2025 11:00:07 02/27/20 25 02/26/2025 LUTEN IZING HORMO NE lutenizing hormone 1.5 m[IU] /mL 1.0-95 .6 normal LH EXPEC YANETH VALUE S WOMEN : FOLLI CULAR PHASE 2.4-1 2.6 mIU/m L OVULA TION PHASE 14.0- 95.6 mIU/m L LUTEA L PHASE 1.0-1 1.4 mIU/m L POSTM ENOPA USE 7.7-5 8.5 mIU/m L . Not Available [facility] [address] [place], [address], 02/26/2025 10:42:00 02/27/20 25 02/26/2025 ESTRA DIOL estradiol 464.0 pg/mL 0.0-39 8.0 high Refer ence range is based on non-p regna nt women . NOTE: Due to the risk of cross -reac tivit y, the Avelina Estra diol assay used by our labor atory chaim olmstead not be order ed when monit oring estra diol level s in patie nts being treat ed with Fulve stran t. An alter colin metho d such as LC/MS , which is not expec yaneth to show cross -reac tivit y to Fulve stran t, chaim olmstead be used to measu re estra diol priya ntrat ions. Stero id drugs may inter fere with this test. ESTRA DIOL EXPEC YANETH VALUE S HEALT HY WOMEN : FOLLI CULAR PHASE 12.4 - 233 pg/mL OVULA TION PHASE 41.0 - 398 pg/mL LUTEA L PHASE 22.3 - 341 pg/mL POSTM ENOPA USE < 5.0 - 138 pg/mL HEALT HY PREGN ANT WOMEN : 1st TRIME STER 154 - 3243 pg/mL 2nd TRIME STER 1561 - 21,28 0 pg/mL 3rd TRIME STER 8525 - > 30,00 0 pg/mL . Not Available [facility] [address] [place], [address], 02/26/2025 10:42:00 03/11/20 25 03/11/2025 PROGE STERO NE, SERUM /PLAS MA progesterone , serum/plasma 19.70 NG/mL 0.00-2 3.90 normal Refer ence range is based on non-p regna nt women . PROGE STERO NE EXPEC YANETH VALUE S WOMEN : FOLLI CULAR PHASE 0.06 - 0.90 ng/mL OVULA TION PHASE 0.12 - 12.0 ng/mL LUTEA L PHASE 1.83 - 23.9 ng/mL POSTM ENOPA USE 0.00 - 0.13 ng/mL 1st Trime ster 11.0 - 44.3 ng/mL 2nd Trime ster 25.4 - 83.3 ng/mL 3rd Trime ster 58.7 - 214.0 ng/mL . Not Available [facility] [address] [place], [address], 03/11/2025 11:10:20 03/11/20 25 03/11/2025 ESTRA DIOL estradiol 1354.0 pg/mL 0.0-39 8.0 high Refer ence range is based on non-p regna nt women . NOTE: Due to the risk of cross -reac tivit y, the Avelina Estra diol assay used by our labor atory chaim d not be order ed when monit oring estra diol level s in patie nts being treat ed with Fulve stran t. An alter colin metho d such as LC/MS , which is not expec yaneth to show cross -reac tivit y to Fulve stran t, chaim d be used to measu re estra diol priya ntrat ions. Stero id drugs may inter fere with this test. ESTRA DIOL EXPEC YANETH VALUE S HEALT HY WOMEN : FOLLI CULAR PHASE 12.4 - 233 pg/mL OVULA TION PHASE 41.0 - 398 pg/mL LUTEA L PHASE 22.3 - 341 pg/mL POSTM ENOPA USE < 5.0 - 138 pg/mL HEALT HY PREGN ANT WOMEN : 1st TRIME STER 154 - 3243 pg/mL 2nd TRIME STER 1561 - 21,28 0 pg/mL 3rd TRIME STER 8525 - > 30,00 0 pg/mL . Not Available [facility] [address] [facility], [place], [address], 03/11/2025 11:10:19 03/17/20 25 03/18/2025 PROGE STERO NE, SERUM /PLAS MA progesterone , serum/plasma 16.70 NG/mL 0.00-2 3.90 normal Refer ence range is based on non-p regna nt women . PROGE STERO NE EXPEC YANETH VALUE S WOMEN : FOLLI CULAR PHASE 0.06 - 0.90 ng/mL OVULA TION PHASE 0.12 - 12.0 ng/mL LUTEA L PHASE 1.83 - 23.9 ng/mL POSTM ENOPA USE 0.00 - 0.13 ng/mL 1st Trime ster 11.0 - 44.3 ng/mL 2nd Trime ster 25.4 - 83.3 ng/mL 3rd Trime ster 58.7 - 214.0 ng/mL . Not Available [facility] [address] [place] [address], [address], 03/18/2025 13:13:26 03/17/20 25 03/17/2025 BETA HCG, PREGN CLAUDIA beta HCG, <5 m[IU] /mL 0-5 normal EXPEC YANETH HCG LEVEL S WEEKS OF GESTA TION HCG LEVEL (mIU/ mL) 3 5.8 - 71.2 4 9.5 - 750 5 217 - 7138 6 158 - 31,79 5 7 3697 - 163,5 63 8 32,06 5 - 149,5 71 9 63,80 3 - 151,4 10 10 46,50 9 - 186,9 77 12 27,83 2 - 210,6 12 14 13,95 0 - 62,53 0 15 12,03 9 - 70,97 1 16 9040 - 56,45 1 17 8175 - 55,86 8 18 8099 - 58,17 6 Not Available [facility] [address] [place] [address], [address], 03/17/2025 10:34:58 03/26/20 25 03/26/2025 T4,FR EE T4,free 2.27 NG/dL 0.93-1 .70 high Not Available [facility] [address] [place] [address], [address], 03/26/2025 11:39:57 03/26/20 25 03/26/2025 TSH TSH 0.693 u[IU] /mL 0.270- 4.200 normal Not Available [facility] [address] [place] [address], [address], 03/26/2025 11:39:56 03/26/20 25 03/26/2025 FOLLI HONORIO STIM. HORMO NE follicle stim. hormone 4.1 m[IU] /mL 1.7-13 4.8 normal FSH EXPEC YANETH VALUE S FEMAL ES: FOLLI CULAR PHASE : 3.5 - 12.5 MIU/M L OVULA TION PHASE : 4.7 - 21.5 MIU/M L LUTEA L PHASE : 1.7 - 7.7 MIU/M L POST MENOP AUSE: 25.8 - 134.8 MIU/M L . Not Available [facility] [address] [place], [address], 03/26/2025 11:39:55 03/26/20 25 03/26/2025 LUTEN IZING HORMO NE lutenizing hormone 5.8 m[IU] /mL 1.0-95 .6 normal LH EXPEC YANETH VALUE S WOMEN : FOLLI CULAR PHASE 2.4-1 2.6 mIU/m L OVULA TION PHASE 14.0- 95.6 mIU/m L LUTEA L PHASE 1.0-1 1.4 mIU/m L POSTM ENOPA USE 7.7-5 8.5 mIU/m L . Not Available [facility] [address] [place], [address], 03/26/2025 11:39:55 03/26/2003/26/2025 PROGE STERO NE, SERUM /PLAS MA progesterone , serum/plasma 0.33 NG/mL 0.00-2 3.90 normal Refer ence range is based on non-p regna nt women . PROGE STERO NE EXPEC YANETH VALUE S WOMEN : FOLLI CULAR PHASE 0.06 - 0.90 ng/mL OVULA TION PHASE 0.12 - 12.0 ng/mL LUTEA L PHASE 1.83 - 23.9 ng/mL POSTM ENOPA USE 0.00 - 0.13 ng/mL 1st Trime ster 11.0 - 44.3 ng/mL 2nd Trime ster 25.4 - 83.3 ng/mL 3rd Trime ster 58.7 - 214.0 ng/mL . Not Available [facility] [address] [place], [address], 03/26/2025 11:39:53 03/26/2003/26/2025 ESTRA DIOL estradiol 38.2 pg/mL 0.0-39 8.0 normal Refer ence range is based on non-p regna nt women . NOTE: Due to the risk of cross -reac tivit y, the Avelina Estra diol assay used by our labor atory shoul d not be order ed when monit oring estra diol level s in patie nts being treat ed with Fulve stran t. An alter colin metho d such as LC/MS , which is not expec yaneth to show cross -reac tivit y to Fulve stran t, shoul d be used to measu re estra diol priya ntrat ions. Stero id drugs may inter fere with this test. ESTRA DIOL EXPEC YANETH VALUE S HEALT HY WOMEN : FOLLI CULAR PHASE 12.4 - 233 pg/mL OVULA TION PHASE 41.0 - 398 pg/mL LUTEA L PHASE 22.3 - 341 pg/mL POSTM ENOPA USE < 5.0 - 138 pg/mL HEALT HY PREGN ANT WOMEN : 1st TRIME STER 154 - 3243 pg/mL 2nd TRIME STER 1561 - 21,28 0 pg/mL 3rd TRIME STER 8525 - > 30,00 0 pg/mL . Not Available [facility] [address] [place] [address], [address], 03/26/2025 11:39:52 03/26/20 25 03/26/2025 BETA HCG, PREGN CLAUDIA beta HCG, <5 m[IU] /mL 0-5 normal EXPEC YANETH HCG LEVEL S WEEKS OF GESTA TION HCG LEVEL (mIU/ mL) 3 5.8 - 71.2 4 9.5 - 750 5 217 - 7138 6 158 - 31,79 5 7 3697 - 163,5 63 8 32,06 5 - 149,5 71 9 63,80 3 - 151,4 10 10 46,50 9 - 186,9 77 12 27,83 2 - 210,6 12 14 13,95 0 - 62,53 0 15 12,03 9 - 70,97 1 16 9040 - 56,45 1 17 8175 - 55,86 8 18 8099 - 58,17 6 Not Available [facility] [place], [address], 03/26/2025 11:37:14 04/02/20 25 04/02/2025 LUTEN IZING HORMO NE lutenizing hormone 11.9 m[IU] /mL 1.0-95 .6 normal LH EXPEC YANETH VALUE S WOMEN : FOLLI CULAR PHASE 2.4-1 2.6 mIU/m L OVULA TION PHASE 14.0- 95.6 mIU/m L LUTEA L PHASE 1.0-1 1.4 mIU/m L POSTM ENOPA USE 7.7-5 8.5 mIU/m L . Not Available [facility] [address] [place], [address], 04/02/2025 12:03:29 04/02/20 25 04/02/2025 PROGE STERO NE, SERUM /PLAS MA progesterone , serum/plasma 0.46 NG/mL 0.00-2 3.90 normal Refer ence range is based on non-p regna nt women . PROGE STERO NE EXPEC YANETH VALUE S WOMEN : FOLLI CULAR PHASE 0.06 - 0.90 ng/mL OVULA TION PHASE 0.12 - 12.0 ng/mL LUTEA L PHASE 1.83 - 23.9 ng/mL POSTM ENOPA USE 0.00 - 0.13 ng/mL 1st Trime ster 11.0 - 44.3 ng/mL 2nd Trime ster 25.4 - 83.3 ng/mL 3rd Trime ster 58.7 - 214.0 ng/mL . Not Available [facility] [address] [place], [address], 04/02/2025 12:03:28 04/02/20 25 04/02/2025 ESTRA DIOL estradiol 152.0 pg/mL 0.0-39 8.0 normal Refer ence range is based on non-p regna nt women . NOTE: Due to the risk of cross -reac tivit y, the Avelina Estra diol assay used by our labor atory chaim olmstead not be order ed when monit oring estra diol level s in patie nts being treat ed with Fulve sloane [place]. An alter colin metho d such as LC/MS , which is not expec yaneth to show cross -reac tivit y to Fulve chaim bethea be used to measu re estra diol priya ntrat ions. Stero id drugs may inter fere with this test. ESTRA DIOL EXPEC YANETH VALUE S HEALT HY WOMEN : FOLLI CULAR PHASE 12.4 - 233 pg/mL OVULA TION PHASE 41.0 - 398 pg/mL LUTEA L PHASE 22.3 - 341 pg/mL POSTM ENOPA USE < 5.0 - 138 pg/mL HEALT HY PREGN ANT WOMEN : 1st TRIME STER 154 - 3243 pg/mL 2nd TRIME STER 1561 - 21,28 0 pg/mL 3rd TRIME STER 8525 - > 30,00 0 pg/mL . Not Available [facility] [address] [place], [address], 04/02/2025 12:03:27 04/14/2004/14/2025 PROGE STERO NE, SERUM /PLAS MA progesterone , serum/plasma 24.90 NG/mL 0.00-2 3.90 high Refer ence range is based on non-p regna nt women . PROGE STERO NE EXPEC YANETH VALUE S WOMEN : FOLLI CULAR PHASE 0.06 - 0.90 ng/mL OVULA TION PHASE 0.12 - 12.0 ng/mL LUTEA L PHASE 1.83 - 23.9 ng/mL POSTM ENOPA USE 0.00 - 0.13 ng/mL 1st Trime ster 11.0 - 44.3 ng/mL 2nd Trime ster 25.4 - 83.3 ng/mL 3rd Trime ster 58.7 - 214.0 ng/mL . Not Available [facility] [address] [place], [address], 04/14/2025 11:18:50 04/14/2004/14/2025 ESTRA DIOL estradiol 142.0 pg/mL 0.0-39 8.0 normal Refer ence range is based on non-p regna nt women . NOTE: Due to the risk of cross -reac tivit y, the Avelina Estra diol assay used by our labor damaris rucker d not be order ed when monit oring estra diol level s in patie nts being treat ed with Fulve shern t. An alter colin metho d such as LC/MS , which is not expec yaneth to show cross -reac tivit y to Esau anton tchaim d be used to measu re estra diol priya ntrat ions. Stero id drugs may inter fere with this test. ESTRA DIOL EXPEC YANETH VALUE S HEALT HY WOMEN : FOLLI CULAR PHASE 12.4 - 233 pg/mL OVULA TION PHASE 41.0 - 398 pg/mL LUTEA L PHASE 22.3 - 341 pg/mL POSTM ENOPA USE < 5.0 - 138 pg/mL HEALT HY PREGN ANT WOMEN : 1st TRIME STER 154 - 3243 pg/mL 2nd TRIME STER 1561 - 21,28 0 pg/mL 3rd TRIME STER 8525 - > 30,00 0 pg/mL . Not Available [facility] [address] [place], [address], 04/14/2025 11:18:49 04/19/20 25 04/19/2025 BETA HCG, PREGN CLAUDIA beta HCG, 124 m[IU] /mL 0-5 high EXPEC YANETH HCG LEVEL S WEEKS OF GESTA TION HCG LEVEL (mIU/ mL) 3 5.8 - 71.2 4 9.5 - 750 5 217 - 7138 6 158 - 31,79 5 7 3697 - 163,5 63 8 32,06 5 - 149,5 71 9 63,80 3 - 151,4 10 10 46,50 9 - 186,9 77 12 27,83 2 - 210,6 12 14 13,95 0 - 62,53 0 15 12,03 9 - 70,97 1 16 9040 - 56,45 1 17 8175 - 55,86 8 18 8099 - 58,17 6 Not Available [facility] [address] [place], [address], 04/19/2025 10:55:07 04/19/2004/19/2025 PROGE STERO NE, SERUM /PLAS MA progesterone , serum/plasma 35.00 NG/mL 0.00-2 3.90 high Refer ence range is based on non-p regna nt women . PROGE STERO NE EXPEC YANETH VALUE S WOMEN : FOLLI CULAR PHASE 0.06 - 0.90 ng/mL OVULA TION PHASE 0.12 - 12.0 ng/mL LUTEA L PHASE 1.83 - 23.9 ng/mL POSTM ENOPA USE 0.00 - 0.13 ng/mL 1st Trime ster 11.0 - 44.3 ng/mL 2nd Trime ster 25.4 - 83.3 ng/mL 3rd Trime ster 58.7 - 214.0 ng/mL . Not Available [facility] [address] [place] [address], [address], 04/19/2025 10:45:30 04/19/20 25 04/19/2025 HEMOG MAURICIO white blood cells 19.9 10*3/ uL 3.8-10 .8 high Not Available [facility] [address] [place] [address], [address], 04/19/2025 10:07:31 04/19/2004/19/2025 HEMOG MAURICIO red blood cells 4.79 10*6/ uL 3.80-5 .20 normal Not Available [facility] [address] [place] [address], [address], 04/19/2025 10:07:31 04/19/2004/19/2025 HEMOG MAURICIO hemoglobin 12.3 g/dL 12.0-1 6.0 normal Not Available [facility] [address] [place] [address], [address], 04/19/2025 10:07:31 04/19/2004/19/2025 HEMOG MAURICIO hematocrit 37.9 % 35.0-4 7.0 normal Not Available [facility] [address] [place] [address], [address], 04/19/2025 10:07:31 04/19/2004/19/2025 HEMOG MAURICIO MCV 79 fL 80-100 low Not Available [facility] [address] [place] [address], [address], 04/19/2025 10:07:31 04/19/2004/19/2025 HEMOG MAURICIO MCH 26 pg 26-35 normal Not Available [facility] [address] [place] [address], [address], 04/19/2025 10:07:31 04/19/2004/19/2025 HEMOG MAURICIO MCHC 33 g/dL 32-36 normal Not Available [facility] [address] [place] [address], [address], 04/19/2025 10:07:31 04/19/20 25 04/19/2025 HEMOG MAURICIO RDW 16.4 % 11.0-1 5.0 high Not Available [facility] [address] [place] [address], [address], 04/19/2025 10:07:31 04/19/20 25 04/19/2025 HEMOG MAURICIO MPV 6.4 fL 6.2-10 .5 normal Not Available [facility] [address] [place] [address], [address], 04/19/2025 10:07:31 04/19/20 25 04/19/2025 HEMOG MAURICIO platelet count 350 10*3/ uL 150-40 0 normal Not Available [facility] [address] [place] [address], [address], 04/19/2025 10:07:31 04/21/2004/21/2025 TSH TSH 4.830 u[IU] /mL 0.270- 4.200 high Not Available [facility] [address] [place] [address], [address], 04/21/2025 11:23:04 04/21/20 25 04/21/2025 PROGE STERO NE, SERUM /PLAS MA progesterone , serum/plasma 23.00 NG/mL 0.00-2 3.90 normal Refer ence range is based on non-p regna nt women . PROGE STERO NE EXPEC YANETH VALUE S WOMEN : FOLLI CULAR PHASE 0.06 - 0.90 ng/mL OVULA TION PHASE 0.12 - 12.0 ng/mL LUTEA L PHASE 1.83 - 23.9 ng/mL POSTM ENOPA USE 0.00 - 0.13 ng/mL 1st Trime ster 11.0 - 44.3 ng/mL 2nd Trime ster 25.4 - 83.3 ng/mL 3rd Trime ster 58.7 - 214.0 ng/mL . Not Available [facility] [address] [place], [address], 04/21/2025 11:23:03 04/21/2004/21/2025 ESTRA DIOL estradiol 150.0 pg/mL 0.0-39 8.0 normal Refer ence range is based on non-p regna nt women . NOTE: Due to the risk of cross -reac tivit y, the Avelina Estra diol assay used by our labor atory chaim olmstead not be order ed when monit oring estra diol level s in patie nts being treat ed with Fulve stran t. An alter colin metho d such as LC/MS , which is not expec yaneth to show cross -reac tivit y to Fulve chaim bethea d be used to measu re estra diol priya ntrat ions. Stero id drugs may inter fere with this test. ESTRA DIOL EXPEC YANETH VALUE S HEALT HY WOMEN : FOLLI CULAR PHASE 12.4 - 233 pg/mL OVULA TION PHASE 41.0 - 398 pg/mL LUTEA L PHASE 22.3 - 341 pg/mL POSTM ENOPA USE < 5.0 - 138 pg/mL HEALT HY PREGN ANT WOMEN : 1st TRIME STER 154 - 3243 pg/mL 2nd TRIME STER 1561 - 21,28 0 pg/mL 3rd TRIME STER 8525 - > 30,00 0 pg/mL . Not Available [facility] [address] [place], [address], 04/21/2025 11:23:01 04/21/2004/21/2025 BETA HCG, PREGN CLAUDIA beta HCG, 281 m[IU] /mL 0-5 high EXPEC YANETH HCG LEVEL S WEEKS OF GESTA TION HCG LEVEL (mIU/ mL) 3 5.8 - 71.2 4 9.5 - 750 5 217 - 7138 6 158 - 31,79 5 7 3697 - 163,5 63 8 32,06 5 - 149,5 71 9 63,80 3 - 151,4 10 10 46,50 9 - 186,9 77 12 27,83 2 - 210,6 12 14 13,95 0 - 62,53 0 15 12,03 9 - 70,97 1 16 9040 - 56,45 1 17 8175 - 55,86 8 18 8099 - 58,17 6 Not Available [facility] [address] [place], [address], 04/21/2025 11:21:58 04/28/20 25 04/28/2025 PROGE STERO NE, SERUM /PLAS MA progesterone , serum/plasma 37.30 NG/mL 0.00-2 3.90 high Refer ence range is based on non-p regna nt women . PROGE STERO NE EXPEC YANETH VALUE S WOMEN : FOLLI CULAR PHASE 0.06 - 0.90 ng/mL OVULA TION PHASE 0.12 - 12.0 ng/mL LUTEA L PHASE 1.83 - 23.9 ng/mL POSTM ENOPA USE 0.00 - 0.13 ng/mL 1st Trime ster 11.0 - 44.3 ng/mL 2nd Trime ster 25.4 - 83.3 ng/mL 3rd Trime ster 58.7 - 214.0 ng/mL . Not Available [facility] [address] [place], [address], 04/28/2025 11:51:04 04/28/20 25 04/28/2025 ESTRA DIOL estradiol 314.0 pg/mL 0.0-39 8.0 normal Refer ence range is based on non-p regna nt women . NOTE: Due to the risk of cross -reac tivit y, the Avelina Estra diol assay used by our labor damaris rucker d not be order ed when monit oring estra diol level s in patie nts being treat ed with Fulve stran t. An alter colin metho d such as LC/MS , which is not expec yaneth to show cross -reac tivit y to Fulve stran tchaim d be used to measu re estra diol priya ntrat ions. Stero id drugs may inter fere with this test. ESTRA DIOL EXPEC YANETH VALUE S HEALT HY WOMEN : FOLLI CULAR PHASE 12.4 - 233 pg/mL OVULA TION PHASE 41.0 - 398 pg/mL LUTEA L PHASE 22.3 - 341 pg/mL POSTM ENOPA USE < 5.0 - 138 pg/mL HEALT HY PREGN ANT WOMEN : 1st TRIME STER 154 - 3243 pg/mL 2nd TRIME STER 1561 - 21,28 0 pg/mL 3rd TRIME STER 8525 - > 30,00 0 pg/mL . Not Available [facility] [place], [address], 04/28/2025 11:51:03 04/28/20 25 04/28/2025 BETA HCG, PREGN CLAUDIA beta HCG, 2455 m[IU] /mL 0-5 high EXPEC YANETH HCG LEVEL S WEEKS OF GESTA TION HCG LEVEL (mIU/ mL) 3 5.8 - 71.2 4 9.5 - 750 5 217 - 7138 6 158 - 31,79 5 7 3697 - 163,5 63 8 32,06 5 - 149,5 71 9 63,80 3 - 151,4 10 10 46,50 9 - 186,9 77 12 27,83 2 - 210,6 12 14 13,95 0 - 62,53 0 15 12,03 9 - 70,97 1 16 9040 - 56,45 1 17 8175 - 55,86 8 18 8099 - 58,17 6 Not Available [facility] [address] [place], [address], 04/28/2025 11:47:22 11/19/19 24 11/18/2023 US, obste tric, trans vagin al No observ ation record ed. [email or web address] [facility] [address] [place], [address], 11/19/2023 18:50:41 02/04/20 24 02/04/2024 MAMMO , scree jaime, tomos ynthe sis, bilat eral, w/ CAD [facility] [address] [facility] [place] [address] Rik wellington Name: JU wellington : 9[birth year] Age: 43 years Rik wellington 45 Orderi ng Provid er: SOBIA CONCEPCION EXAM DATE: 2023 EXAM: MG SCREEN ING LIZETT MAMMOG MAURICIO INDICA TION: Routin e screen ing. PROCED URE: Multis lice imagin g of both breast s was perfor med in standa rd projec tions using Hologi c Seleni a Dimens ions tomosy nthesi s equipm ent (3D mammog mike) . 2D images were create d from the 3D datase t using C-View softwa re. The study was read with the assist ance of Comput er Aided Detect ion (CAD) softwa re. COMPAR MICHAEL: None. These are the rik wellington's first mammog reynaldo. 2022 FINDIN GS: There are scatte red fibrog landul ar elemen ts in the breast s. There is no suspic ious mass or cluste r of calcif icatio ns. No ted ectura l distor tion. IMPRES GRAY: BI-RAD S catego ry 1, Negati ve. There is no eviden ce of malign claudia. Screen ing mammog reynaldo are recomm ended in one year. Result s were mailed or given to the rik wellington. Interp reted By: Pillo Wilson MD Electr onical ly Signed By: Pillo Wilosn MD on 024 1:31 PM [facility] [address] [place], [address], 02/04/2024 18:52:14 03/19/2003/18/2024 imagi ng inter preta tion No observ ation record ed. [email or web address] [facility] [address], [place], [address], 03/19/2024 10:09:13 03/24/20 24 03/24/2024 US, obste tric, 1st trime ster No observ ation record ed. [email or web address] [facility] [address] [facility], [place], [address], 03/25/2024 09:16:50 03/27/20 24 03/27/2024 imagi ng inter preta tion No observ ation record ed. [email or web address] Not Available 2023 09:42:02 08/19/20 24 08/19/2024 US, pelvi s No observ ation record ed. [address], [place], [address], 08/20/2024 10:04:39 08/24/20 24 08/24/2024 imagi ng inter preta tion No observ ation record ed. [email or web address], [place], [address], 08/25/2024 08:14:50 10/12/20 24 10/12/2024 imagi ng inter preta tion No observ ation record ed. [email or web address] [facility] [address], [place], [address], 10/13/2024 08:02:20 12/02/19 25 12/02/2024 US, abdom en No observ ation record ed. [address], [place], [address], 12/02/2024 13:29:13 02/16/20 25 02/15/2025 imagi ng inter preta tion No observ ation record ed. [email or web address], [place], [address], 02/15/2025 12:06:32 02/20/20 25 02/19/2025 imagi ng inter preta tion No observ ation record ed. [email or web address] Not Available 2024 14:06:39 02/23/20 25 02/22/2025 imagi ng inter preta tion No observ ation record ed. [email or web address] Not Available 02/22 13:36:08 02/25/20 25 02/24/2025 imagi ng inter preta tion No observ ation record ed. [email or web address] [facility] [address], [place], [address], 03/01/2025 15:30:54 02/27/20 25 02/26/2025 imagi ng inter preta tion No observ ation record ed. [email or web address] [facility] [address], [place], [address], 03/01/2025 15:30:14 03/26/20 25 03/26/2025 imagi ng inter preta tion No observ ation record ed. [email or web address] [facility] [address], [place], [address], 03/29/2025 08:12:00 04/02/20 25 04/02/2025 imagi ng inter preta tion No observ ation record ed. [email or web address] [facility] [address], [place], [address], 04/02/2025 10:58:56 04/28/20 25 04/28/2025 imagi ng inter preta tion No observ ation record ed. [email or web address], [place], [address], 04/29/2025 09:07:53 Result Notes Documentation Provider Name and Address Organization Details Recorded Time Mammo, Screening, Tomosynthesis, Bilateral, W/ Cad : [address] [place] [address] Patient Name: JUDIT DOMINGUEZ Patient : 1980 Age: 43 years Patient Ordering Provider: SOBIA CONCEPCION EXAM DATE: 02/04/2024 EXAM: MG SCREENING LIZETT MAMMOGRAM INDICATION: Routine screening. PROCEDURE: Multislice imaging of both breasts was performed in standard projections using [employer] tomosynthesis equipment (3D mammography). 2D images were created from the 3D dataset using C-View software. The study was read with the assistance of Computer Aided Detection (CAD) software. COMPARISON: None. These are the patient's first mammograms. 01/08/2023 FINDINGS: There are scattered fibroglandular elements in the breasts. There is no suspicious mass or cluster of calcifications. No architectural distortion. IMPRESSION: BI-RADS category 1, Negative. There is no evidence of malignancy. Screening mammograms are recommended in one year. Results were mailed or given to the patient. Interpreted By: Pillo Wilson MD A CONCEPCION MD [address] [place] [address], [address], [facility] 02/04/2024 13:44:00 Problems Name Problem SNOMED Code Status Onset Date Resolution Date Notes Provider Name and Address Organization Details Recorded Time Hypothyro idism 36208407 Active 2019 SOBIA CONCEPCION MD [address] [place] [address], [address], [facility] 0 12:26:59 Uses oral contracep tion 9899470 Completed 201912/27/2021 SOBIA CONCEPCION MD [address] [place] [address], [address], [facility] 2 10:33:23 Vitamin D deficienc y 07802689 Active 2019 SOBIA CONCEPCION MD [address] [place] [address], [address] 1, [facility] 0 12:27:01 Generaliz ed anxiety disorder 98690763 Active 2019 SOBIA CONCEPCION MD [address] [place] [address], [address] 1, [facility] 0 12:53:10 Snoring 23636689 Active 2019 SOBIA CONCEPCION MD [address] [place] [address], 25[address] 1, [facility] 0 12:53:12 Multinodu lar goiter 005054894 Active 2019 SOBIA CONCEPCION MD [address] [place] [address], [address] 1, [facility] 0 12:53:13 Atypical squamous cells of undetermi johnny significa nce on cervical Papanicol aou smear 844914045 Active 11/2021-c olpo pending 01/2022 SOBIA CONCEPCION MD [address] [place] [address], 010[address]953 1, [facility] 2 10:33:21 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, high risk on cervical specimen 049506513 Active 2020 SOBIA CONCEPCION MD [address] [place] [address], 639[address]976 1, [facility] 1 15:23:17 Obstructi ve sleep apnea syndrome 80242341 Active 2020 SOBIA CONCEPCION MD [address] [place] [address], [address] 1, [facility] 1 15:23:51 Complete miscarria ge 380065504 Active 2021 SOBIA CONCEPCION MD [address] [place] [address], 626[address] 1, [facility] 2 10:33:02 Mixed hyperlipi demia 902936129 Active 2021 SOBIA CONCEPCION MD [address] [place] [address], 176[address] 1, [facility] 2 15:37:10 Female hirsutism 49146842 Active 2022 SOBIA CONCEPCION MD [address] [place] [address], 628[address] 1, [facility] 3 09:24:02 Problem Notes Documentation Provider Name and Address Organization Details Recorded Time Endocrinology Consult Note : [address] [address]EVHNS, Natasha (id #[id number], : 1980) [facility] [address] [place] [address] Date: 4RE: Judit Dominguez, : 1980, PT ID #[id number] Neace DO / [facility], [facility], I would like to thank you for referring Judit Dominguez to our practice for consultation and evaluation. I have enclosed a copy of the office evaluation for your records. Sincerely, Electronically Signed by: DANIEL ELIZALDE MDEncounter Reason/DateNone recorded 12/16/2023 - 02:30PM - ENDOCRINOLOGY SB History of Present [id number] female patient with a past medical history as detailed in the problem significant for vitamin D deficiency, longstanding history of hypothyroidism seen today as a new consultation uncontrolled hypothyroidism. Requesting provider Dr. Diop Reported long his standing history of hypothyroidism and upon reviewing her records she has fluctuating TSH levels and she stated that while previously she used to miss some doses more recently she is taking her medicine religiously as instructed She denies any palpitations, shaking, excessive sweating or heat intolerance Reported improved energy but she denies any fatigue, dry skin, hair loss or leg cramping Currently takes levothyroxine 175 mcg every am up from 150 Review of Systems Patient reports no constitutional symptoms. She reports no ENMT symptoms. She reports no cardiovascular symptoms. She reports no endocrine symptoms. Physical ExamConstitutional:General Appearance:obese. Level of Distress: no acute distress. Ambulation: ambulating normally. Eyes:Lids and Conjunctivae: no discharge or pallor and non-injected. Neck:Thyroid: no nodules andthyromegaly. Cardiovascular:Heart Auscultation: normal S1 and S2, no murmurs or rubs, and regular rate and rhythm. Lungs:Auscultation: breath sounds normal, good air movement, clear to auscultation, and no wheezing. Psychiatric:Insight: good judgement and insight.Procedure DocumentationNone recordedAssessment/Plan1. Hypothyroidism-New consultation uncontrolled hypothyroidism2 miscarriagesPreviously per records, nonadherence to thyroid hormone replacement therapyMore recently upon medical advice, she is taking her medicine appropriately as instructed.TSH is still elevated at 5.27 on 11/20/2023 after increasing her dose to her current dose of 175 mcg In view of the above, I recommended to discontinue levothyroxine 175 mcg and start brand Synthroid 200 mcg every a.m. Patient was instructed on the appropriate method of levothyroxin administration to be taken every a.m. on an empty stomach as new food, drinks or other medications for at least 30 minutes. PPI and calcium -containing preparations is preferred to be given at least of her hours before or after levothyroxin therapy. Provided patient with 4-week [facility] of brand Synthroid Recheck TSH and free T4 after 4 to 6 weeks Follow-up Further adjustment as appropriate We had a discussion today about hypothyroidism deleterious consequences maternally and unilaterally. Patient verbalized understanding and agreed with the above mentioned plan of care. I would like to thank Dr. Diop for the opportunity to participate in the care of this patient.E03.9: Hypothyroidism, unspecified Synthroid 200 mcg tablet -Take 1 tablet(s) every day by oral route in the morning for 90 days. Qty: (90) tablet Refills: 0 RISHI: Y Pharmacy: [facility] Note to Pharmacy: To be taken on empty stomach with no food, drinks or other medications for at least 30 minutes. THYROID STIMULATING HORMONE (TSH) -To be performed on or around 01/20/2024 T4 FREE -To be performed on or around 01/20/2024 Return to Office SOBIA CONCEPCION MD for PHYSICAL EXAM at [facility] on 01/02/2024 at 02:00 PM DANIEL ELIZALDE MD for RECHECK at ENDOCRINOLOGY SB on 01/16/2024 at 02:00 PM ALEC DIOP DO for ANNUAL CODING ADVISOR at [facility] on 06/11/2024 at 11:30 AM ALEC DIOP DO [address] [place] [address], [address], [facility] - [facility] 12/17/2023 12:40:11 Endocrinology Note : [facility] [address] [place] [id number], Natasha (id #[id number], : 1980) [facility] [address] [place] [address] Date: 4RE: Judit Dominguez, : 1980, PT ID #[id number] Neace DO / [facility], [facility], I would like to thank you for referring Judit Dominguez to our practice for consultation and evaluation. I have enclosed a copy of the office evaluation for your records. Sincerely, Electronically Signed by: DANIEL ELIZALDE MDEncounter Reason/DateNone recorded 12/16/2023 - 02:30PM - ENDOCRINOLOGY SB History of Present [id number] female patient with a past medical history as detailed in the problem significant for vitamin D deficiency, longstanding history of hypothyroidism seen today as a new consultation uncontrolled hypothyroidism. Requesting provider Dr. Diop Reported long his standing history of hypothyroidism and upon reviewing her records she has fluctuating TSH levels and she stated that while previously she used to miss some doses more recently she is taking her medicine religiously as instructed She denies any palpitations, shaking, excessive sweating or heat intolerance Reported improved energy but she denies any fatigue, dry skin, hair loss or leg cramping Currently takes levothyroxine 175 mcg every am up from 150 Review of Systems Patient reports no constitutional symptoms. She reports no ENMT symptoms. She reports no cardiovascular symptoms. She reports no endocrine symptoms. Physical ExamConstitutional:General Appearance:obese. Level of Distress: no acute distress. Ambulation: ambulating normally. Eyes:Lids and Conjunctivae: no discharge or pallor and non-injected. Neck:Thyroid: no nodules andthyromegaly. Cardiovascular:Heart Auscultation: normal S1 and S2, no murmurs or rubs, and regular rate and rhythm. Lungs:Auscultation: breath sounds normal, good air movement, clear to auscultation, and no wheezing. Psychiatric:Insight: good judgement and insight.Procedure DocumentationNone recordedAssessment/Plan1. Hypothyroidism-New consultation uncontrolled hypothyroidism2 miscarriagesPreviously per records, nonadherence to thyroid hormone replacement therapyMore recently upon medical advice, she is taking her medicine appropriately as instructed.TSH is still elevated at 5.27 on 11/20/2023 after increasing her dose to her current dose of 175 mcg In view of the above, I recommended to discontinue levothyroxine 175 mcg and start brand Synthroid 200 mcg every a.m. Patient was instructed on the appropriate method of levothyroxin administration to be taken every a.m. on an empty stomach as new food, drinks or other medications for at least 30 minutes. PPI and calcium -containing preparations is preferred to be given at least of her hours before or after levothyroxin therapy. Provided patient with 4-week [facility] of brand Synthroid Recheck TSH and free T4 after 4 to 6 weeks Follow-up Further adjustment as appropriate We had a discussion today about hypothyroidism deleterious consequences maternally and unilaterally. Patient verbalized understanding and agreed with the above mentioned plan of care. I would like to thank Dr. Diop for the opportunity to participate in the care of this patient.E03.9: Hypothyroidism, unspecified Synthroid 200 mcg tablet -Take 1 tablet(s) every day by oral route in the morning for 90 days. Qty: (90) tablet Refills: 0 RISHI: Y Pharmacy: [facility] Note to Pharmacy: To be taken on empty stomach with no food, drinks or other medications for at least 30 minutes. THYROID STIMULATING HORMONE (TSH) -To be performed on or around 01/20/2024 T4 FREE -To be performed on or around 01/20/2024 Return to Office SOBIA CONCEPCION MD for PHYSICAL EXAM at [facility] on 01/02/2024 at 02:00 PM DANIEL ELIZALDE MD for RECHECK at ENDOCRINOLOGY SB on 01/16/2024 at 02:00 PM ALEC DIOP DO for ANNUAL CODING ADVISOR at [facility] on 06/11/2024 at 11:30 [facility] 10:19:30 Procedures Surgical History Date Name Laterality Status Provider Name and Address Organization Details Recorded Time 2 Suture/Staple removal completed SOBIA CONCEPCION [facility] [place], [address], [facility] 04/19/2022 15:34:57 2 Colposcopy; Cervical (Bx/ECC) completed ALEC DIOP DO [address] [place], [address], [facility] 02/08/2022 12:36:33 2 Date of Last Pap Smear completed [facility] 12/20/2022 14:14:56 1 Colposcopy; Cervical (Bx/ECC) completed BLANCA MCCARTHY DO [address] [place], [address], [facility] 12/15/2020 11:37:18 1 Colposcopy completed [facility] 12/12/2021 10:34:49 Imaging Results None recorded. Procedure Notes None recorded. Medical Equipment None Reported. Allergies No known drug allergies Medications Name Sig Start Date Stop Date Status Note LastModified by Organization Details LastModified Time cmp-leup trigger 100u/ml (2ml vial)inj saeid kit Inject 4mg (0.8ml) subcutan eously at the appropro priate time as directed active Not Available Not Available No t Available cmp-naltre xone 3mg size #3 Take one (1) capsule by mouth daily at bedtime active Not Available Not Available No t Available follistim pen USE DIRECTED active Not Available Not Available No t Available hcg microdose 10iu/0.1 ml (100iu/ml) kit Compound to 100 IU / ml; Inject 20 units (0.2ml) subcutan eously once daily as directed active Not Available Not Available No t Available amoxicilli n 500 mg capsule TAKE 1 CAPSULE BY MOUTH THREE TIMES DAILY 10/16 completed Not Available Not Available Not Available medroxypro gesterone 10 mg tablet Take one (1) tablet by mouth daily as directed active Not Available Not Available No t Available levothyrox ine 175 mcg tablet Take 1 tablet every day by oral route. 12/16 completed Not Available Not Available Not Available prednisone 10 mg tablet 11/01 completed Not Available Not Available Not Available doxycyclin e hyclate 100 mg capsule Take one (1) pill twice daily as directed 01/05 completed no longer takes med Not Available Not Available Not Available cefuroxime axetil 250 mg tablet Take 1 tablet every 12 hours by oral route with meals for 7 days. 11/24 completed Not Available Not Available Not Available BD Luer-Rocío Syringe 3 mL 25 x 5/8 To use with Pregnyl active Not Available Not Available No t Available atorvastat in 10 mg tablet TAKE ONE TABLET BY MOUTH DAILY 12/31 completed Not Available Not Available Not Available alprazolam 1 mg tablet TAKE 1 TABLET BY MOUTH 1 HOUR PRIOR TO SURGERY 10/16 completed Not Available Not Available Not Available fluconazol e 150 mg tablet TAKE 1 TABLET BY MOUTH EVERY 3 DAYS FOR 2 DOSES. MAY REPEAT SECOND DOSE 72 HOURS AFTER FOR 1 DOSE IF SYMPTOMS PERSIST active Not Available Not Available No t Available Synthroid 200 mcg tablet Take 1 tablet every day by oral route in the morning for 90 days. 2024 active Not Available Not Available Not Avai lable prednisone 5 mg tablet TAKE ONE TABLET BY MOUTH TWICE DAILY DIRECTED --TAKE WITH FOOD-- active no longer takes med Not Available Not Available Not Available ciprofloxa tip 500 mg tablet TAKE ONE TABLET BY MOUTH EVERY DAY FOR 3 DAYS -- FINISH ALL MEDICINE -- 01/05 completed Not Available Not Available Not Available triamcinol one acetonide 0.1 % topical cream APPLY THIN LAYER TOPICALL Y TO THE AFFECTED AREA TWICE DAILY FOR 2 WEEKS active Not Available Not Available No t Available ondansetro n 8 mg disintegra ting tablet DISSOLVE 1 TABLET ON THE TONGUE EVERY 8 HOURS IF NEEDED active Not Available Not Available No t Available levothyrox ine 75 mcg tablet TAKE ONE TABLET BY MOUTH DAILY 04/19 completed Not Available Not Available Not Available levothyrox ine 100 mcg tablet TAKE 1 TABLET BY MOUTH EVERY DAY 10/16 completed Not Available Not Available Not Available oxycodone- acetaminop hen 5 mg-325 mg tablet TAKE 1 TABLET BY MOUTH EVERY 4 TO 6 HOURS NEEDED FOR PAIN 01/05 completed no longer takes med Not Available Not Available Not Available terbinafin e HCl 250 mg tablet 09/27 completed Not Available Not Available Not Available progestero ne 50 mg/mL intramuscu lar oil Inject 50mg (1ml) intramus cularly once daily as directed 01/05 completed no longer takes med Not Available Not Available Not Available citalopram 20 mg tablet TAKE ONE TABLET BY MOUTH EVERY DAY 01/05 completed no longer taking med Not Available Not Available Not Available benzonatat e 100 mg capsule TAKE 1 CAPSULE BY MOUTH THREE TIMES DAILY NEEDED, SWALLOW WHOLE DO NOT CHEW active Not Available Not Available No t Available levothyrox ine 50 mcg tablet TAKE ONE TABLET BY MOUTH DAILY 06/26 completed Not Available Not Available Not Available chorionic gonadotrop in, human 10,000 unit IM powder for solution Inject 10,000 units subcutan eously x 1 dose as directed - Please dispense 1 injectin g needle with vial active Not Available Not Available No t Available cephalexin 500 mg capsule TAKE 1 CAPSULE BY MOUTH THREE TIMES DAILY FOR 10 DAYS 04/19 completed Not Available Not Available Not Available erythromyc in 5 mg/gram (0.5 %) eye ointment 09/27 completed Not Available Not Available Not Available levothyrox ine 125 mcg tablet TAKE 1 TABLET BY MOUTH EVERY DAY 10/16 completed Not Available Not Available Not Available neomycin-p olymyxin-d exameth 3.5 mg/mL-10,0 00 unit/mL-0. 1% eye drops SHAKE LIQUID AND INSTILL 1 DROP IN LEFT EYE FOUR TIMES DAILY FOR 4 TO 7 DAYS 11/01 completed Not Available Not Available Not Available buspirone 10 mg tablet TAKE ONE TABLET BY MOUTH TWICE DAILY 01/05 completed no longer taking med Not Available Not Available Not Available levothyrox ine 150 mcg tablet TAKE 1 TABLET BY MOUTH EVERY DAY 12/16 completed Not Available Not Available Not Available progestero ne micronized 200 mg capsule Insert one (1) capsule vaginall y twice daily as directed 01/05 completed no longer takes med Not Available Not Available Not Available estradiol 2 mg tablet Take one (1) tablet by mouth twice daily active Not Available Not Available No t Available BD Regular [place] 22 gauge x 1 1/2 For use with Progeste silvia in Oil active Not Available Not Available No t Available ergocalcif sully (vitamin D2) 1,250 mcg (50,000 unit) capsule TAKE ONE CAPSULE BY MOUTH ONCE WEEKLY active Not Available Not Available No t Available letrozole 2.5 mg tablet Take 4 tablets by mouth once daily as directed 01/05 completed no longer takes med Not Available Not Available Not Available methylpred nisolone 4 mg tablets in a dose pack FOLLOW PACKAGE DIRECTIO NS 01/05 completed Not Available Not Available Not Available BD Luer-Rocío Syringe 3 mL 18 x 1 1/2 For use with Progeste silvia in Oil active Not Available Not Available No t Available bromphenir amine-pseu doephedrin e-DM 2 mg-30 mg-10 mg/5 mL oral syrup TAKE 1 TEASPOON FUL (5 ML) BY MOUTH EVERY 4 TO 6 HOURS NEEDED FOR COLD symptoms active Not Available Not Available No t Available cefdinir 300 mg capsule 11/01 completed Not Available Not Available Not Available metformin ER 500 mg tablet,ext ended release 24 hr TAKE ONE TABLET BY MOUTH ONCE DAILY FOR 1 WEEK, TAKE ONE TABLET TWICE DAILY FOR 1 WEEK, THEN TAKE TWO TABLETS BY MOUTH TWICE DAILY THEREAFT ER --TAKE WITH FOOD-- active Not Available Not Available No t Available sertraline 50 mg tablet TAKE ONE TABLET BY MOUTH DAILY active Not Available Not Available No t Available amoxicilli n 500 mg-potassi um clavulanat e 125 mg tablet TAKE 1 TABLET BY MOUTH EVERY 12 HOURS FOR 10 DAYS 01/05 completed no longer taking med Not Available Not Available Not Available ganirelix 250 mcg/0.5 mL subcutaneo us syringe Inject 250mcg subcutan eously once each morning as directed active Not Available Not Available No t Available bupropion HCl XL 300 mg 24 hr tablet, extended release Take 1 tablet every day by oral route. active Not Available Not Available No t Available bupropion HCl XL 150 mg 24 hr tablet, extended release TAKE 2 TABLETS BY MOUTH EVERY DAY 01/05 completed taking one pill for 300mg Not Available Not Available Not Available Follistim AQ 300 unit/0.36 mL subcutaneo us cartridge Inject 200 IU subcutan eously in the evening as directed active Not Available Not Available No t Available chlorhexid ine gluconate 0.12 % mouthwash 10/16 completed Not Available Not Available Not Available folic acid active Not Available Not Av ailable Not Available Synthroid 11/13 completed 75 mg Not Available Not Available Not Available active Not Available Not Avai lable Not Available multivitam in Daily 10/16 completed Not Available Not Available Not Available Tri-Lo-Mar johnnie 0.18 mg/0.215 mg/0.25 mg-0.025 mg tablet 10/25 completed 020 - been off x2m Not Available Not Available Not Available Fluarix Quad (PF) 60 mcg (15 mcg x 4)/0.5 mL IM syringe 09/27 completed Not Available Not Available Not Available BinaxNOW COVID-19 Ag Self Test kit TEST DIRECTED TODAY 11/01 completed Not Available Not Available Not Available Vitals Date Recorded Body height Body mass index (BMI) Body weight Heart rate Systolic blood pressure Diastolic blood pressure Provider Name and Address Organization Details Last Updated DateTime 4 157.48 cm 45.7 kg/m2 846927. 09 g 80 /min 125 mm[Hg] 75 mm[Hg] [facility] 4 14:55:06 Date Recorded Body height Body mass index (BMI) Body weight Heart rate Oxygen saturation Oxygen saturation in Arterial blood by Pulse oximetry Systolic blood pressure Diastolic blood pressure Provider Name and Address Organization Details Last Updated DateTime 4 157.48 cm 46 kg/m2 425468. 78 g 86 /min 100 % 100 % 118 mm[Hg] 82 mm[Hg] Maite [facility] 4 13:59:23 Date Recorded Body height Body mass index (BMI) Body weight Body temperature Heart rate Oxygen saturation Oxygen saturation in Arterial blood by Pulse oximetry Respiratory rate Systolic blood pressure Diastolic blood pressure Provider Name and Address Organization Details Last Updated DateTime 5 157.48 cm 47.4 kg/m2 818761. 42 g 96.9 [degF] 106 /min 100 % 100 % 18 /min 132 mm[Hg] 90 mm[Hg] Carlie Calabrese [facility] 5 14:08:00 Date Recorded Body height Body mass index (BMI) Body weight Systolic blood pressure Diastolic blood pressure Provider Name and Address Organization Details Last Updated DateTime 01/14/2025 157.48 cm 46.6 kg/m2 786726.0 5 g 132 mm[Hg] 80 mm[Hg] [facility] 5 14:35:05 Date Recorded Body height Body mass index (BMI) Body weight Heart rate Systolic blood pressure Diastolic blood pressure Provider Name and Address Organization Details Last Updated DateTime 4 157.48 cm 45.2 kg/m2 982260. 32 g 91 /min 118 mm[Hg] 74 mm[Hg] Kiya Mistry [facility] 4 13:53:51 Social History Question Answer Notes LastModified by Organizat ion Details LastModified Time Tobacco Smoking Status [facility] 12:22:03 What Is Your Level Of Caffeine Consumption? Occasional 1c Coffee/da y Information not available 09/27/2020 How Much Tobacco Do You Chew? None Information not available 09/27/2020 Are You Deaf Or Do You Have Serious Difficulty Hearing? No Information not available 06/26/2021 What Type Of Diet Are You Following? REGULAR Information not available 09/27/2020 Hard Of Hearing Or Deaf In One Or Both Ears? No Information not available 09/27/2020 Legally Blind In One Or Both Eyes? No Information not available 09/27/2020 Live Alone Or With Others? With Others Information not available 09/27/2020 What Was The Date Of Your Most Recent Tobacco Screening? 01/05/2025 Information not available 01/05/2025 Do You Use Your Seat Belt Or Car Seat Routinely? Yes Information not available 06/26/2021 Seat Belts Used Routinely Yes Information not available 09/27/2020 Smoke Alarm In Home Yes Information not available 09/27/2020 Do You Have Smoke And Carbon Monoxide Detectors In Your Home? Yes Information not available 06/26/2021 How Much Tobacco Do You Smoke? No Information not available 09/27/2020 Has Tobacco Cessation Counseling Been Provided? Yes [email or web address] Information not available 12/12/2021 On What Date Was Tobacco Cessation Counseling Provided? 01/05/2025 Information not available 01/05/2025 How Many Years Have You Smoked Tobacco? 0 Information not available 10/18/2020 Sex: Unknown Functional Status Question Answer Note LastModified by Organizat ion Details LastModified Time Do you use any illicit or recreational drugs? No Information not available 06/26/2021 Do you or have you ever used any other forms of tobacco or nicotine? No Information not available 06/26/2021 What is your level of alcohol consumption? None Information not available 11/13/2021 Do you or have you ever used smokeless tobacco? Never used smokeless tobacco Information not available 09/27/2020 Are you able to care for yourself? Yes Information not available 09/27/2020 Do you or have you ever used e-cigarettes or vape? Never used electronic cigarettes Information not available 09/27/2020 What is your exercise level? None Information not available 09/27/2020 Mental Status None recorded. Family History Relationship Description Onset Age of this Age Resolved Age Notes LastModified by Organization Details LastModified Time Mother Diabetes mellitus Not available 2019 12:21:20 Mother Bipolar disorder Not available 2019 12:21:34 Maternal Grandmother Dementia Not available 09/27 12:21:43 Maternal Grandmother Cerebrovascu lar accident Not available 08/2020 12:21:49 Maternal Grandfather Alzheimer's disease Not available 2019 12:21:57 Paternal Grandmother Malignant tumor of pancreas Not available 2019 12:22:20 Medical History Condition Response Thyroid Disorder Y Gynecological History Statement/Question Response Abnormal Pap Y Flow Moderate Regular Cycles Y Date of LMP 09/11/2023 STIs/STDs N Real Heavy Periods N Colposcopy 12/15/2020 HPV Vaccine N Duration of Flow (days) 5 Age at Menarche 14 Current Control Method Seeking Pre gnancy Painful Periods N Menses Monthly Y Date of Last Pap Smear 12/12/2021 LMP Approximate Obstetrics History GPAL:G 0 P 0 0 0 0 Immunizations Vaccine Type Date Status Note Provider Nam e and Address Organization Details Recorded Time influenza, unspecified formulation 4 completed Maite Yun [facility], [facility] 11/03/2024 14:11:20 HPV9 1 completed Radha Carlson [facility], [facility] 12/15/2020 11:54:27 HPV9 1 completed Mary Marshall [facility] 01/11/2021 11:13:47 HPV9 1 completed Mary Marshall [facility] 05/15/2021 11:31:03 Influenza, recombinant, quadrivalent, PF 1 completed Saturnino Sanchez [facility] 08/14/2021 15:48:46 Tdap 2 completed Emmie Montemayor [facility] 12/27/2021 11:07:56 Influenza, split virus, quadrivalent, preservative 0 completed Octavia Díaz [facility] 12/31/2022 09:03:59 COVID-19, mRNA, LNP-S, PF, 100 mcg/0.5mL dose or 50 mcg/0.25mL dose 1 completed Octavia Díaz [facility] 12/31/2022 09:03:59 COVID-19, mRNA, LNP-S, PF, 100 mcg/0.5mL dose or 50 mcg/0.25mL dose 1 completed Octavia Peacea [facility] 12/31/2022 09:03:59 Influenza, split virus, quadrivalent, PF 4 completed Maite Yun [facility] 01/02/2024 15:15:18 SARS-COV-2 (COVID-19) vaccine, UNSPECIFIED 1 completed Octavia Díaz [facility] 12/31/2022 09:03:59 tetanus toxoid, unspecified formulation 2 completed Octavia Peacea [facility] 12/31/2022 09:03:59 Influenza, injectable,malika valent, preservative free, pediatric 9 completed Mary Marshall [facility] 12/21/2022 13:39:39 Influenza, recombinant, quadrivalent, PF 2 completed Mary Marshall [facility] 12/21/2022 13:39:39 COVID-19, mRNA, LNP-S, PF, 30 mcg/0.3 mL dose 1 completed Mary Warder null, [facility] 12/21/2022 13:39:39 COVID-19, mRNA, LNP-S, PF, 30 mcg/0.3 mL dose 1 completed Mary Warder [facility], [facility] 12/21/2022 13:39:39 Tdap 0 completed [place] Warder [facility], [facility] 12/21/2022 13:39:39 Td (adult) 2 completed Mary Warder [facility], [facility] 12/21/2022 13:39:39 Past Encounters Encounter ID Performer Location Encounter Start Date Encounter Closed Date Diagnosis/Indication Diagnosis SNOMED-CT Code Diagnosis ICD10 Code Diagnosis Note [id number] SOBIA CONCEPCION [facility] [address] [place] [address] 09/27/2020 12:05:33 09/27/2020 12:56:40 Hypothyroidism 26521993 E03.9 needs to restart her levothyrox ine 50 mcg recheck in 2 months. Vitamin D deficiency 347 01314 E55.9 restart vit d and recheck in 2 months Adult heal th examination 652204165 Z00.00 pap 2 years ago-normal mammogram due at age 42 Multinodular goiter 2375 20673 E04.2 history of maybe? Snoring 78446001 R06.83 refer for sleep study Generalize d anxiety disorder 08277615 F41.1 i think these are panic attacks the dynamic of the couple was odd she appears depressed, crying, she denies all sx i recommende d lexapro and vistaril and was sending in rx when they said she might be . I will hold those rx until she knows. If UPT pos will refer to OB and tx could maybe be zoloft i think is ok? if neg will send in. f/u 2 months [id number] LEONEL OLIVARES PA-C P[facility] [address] [facility] [facility], [address] [place] [address] 10/25/2020 09:30:30 10/25/2020 10:42:02 Snoring 88185307 R06.83 Susy g the patient's snoring, witnessed apneas, excessive daytime sleepiness and morbid obesity, do recommend that she undergo a sleep study to evaluate for the presence of sleep-diso rdered breathing. No known contraindi cations to home sleep test at this time. I have reviewed with the patient the process of a home sleep test and she is currently agreeable. We have discussed the pathophysi ology of sleep apnea. She will have a results call once sleep study has been completed and further plan of care will be determined at that time. Advised to never drive if drowsy [id number] LEONEL OLIVARES PA-C [facility] [address] [place] [address] 11/03/2020 11:23:12 11/03/2020 11:26:59 [id number] LEONEL OLIVARES PA-C PULMONARY [address] [facility] [facility], [address] [place] [address] 11/17/2020 09:50:36 11/17/2020 09:57:13 Obstructive sleep apnea syndrome 68750937 G47.33 Mild to moderate MARIANA. Discussed treatment options of mandibular advancemen t device, weight loss and CPAP. At this time, she would like to move forward with CPAP. She will be set up on AutoPap 6-16 cm and have a 60-90 day follow-up after starting CPAP. [id number] BLANCA MCCARTHY DO [facility] [address] [place] [address] 11/25/2020 09:34:41 11/25/2020 10:28:01 Gynecologic examination 06244558 Z01.419 Pap collected today. Discussed pap smear guidelines and importance of annual exams. To start screening mammograms at age 42 [id number] SOBIA CONCEPCION MD [facility] [address] [place] [address] 12/02/2020 14:54:46 12/02/2020 15:22:47 Hypothyroidism 91018099 E03.9 check tsh back on levothyrox ine x 2 months Adult heal th examination 006825069 Z00.00 pap 11/2020 ASCUS w/ HPV pos-will need a pap 11/2021 with equity sales assistant mammogram due at age 42 check cv screening labs no contracept ion-trying for Vitamin D deficiency 347 19627 E55.9 f/u vit d and will see if needs to continue Multinodular goiter 2375 11794 E04.2 history of maybe? Snoring 84970744 R06.83 pos mariana Generalize d anxiety disorder 76067238 F41.1 on zoloft 50 mg not with her today- Atypical s quamous cells of undetermined significance on cervical Papanicolaou smear 661418369 R87.610 Human deirdre llomavirus deoxyribonucleic acid detected, high risk on cervical specimen 109136841 R87.810 Obstructiv e sleep apnea syndrome 21510589 G47.[id number] [place] [address] 12/15/2020 10:16:19 12/15/2020 11:37:08 Screening procedure 61164822 Z13.9 Atypical s quamous cells of undetermined significance on cervical Papanicolaou smear 201651680 R87.610 Normal appearing cervix. ECC collected. Will call patient with results Human deirdre lloma virus vaccination given 5937738893 9107 Z23 [id number] DO [address] [place] [address] 01/11/2021 10:59:07 01/11/2021 11:09:39 Human papilloma virus vaccination given 9377433076 9107 Z23 2nd Gardasil vaccine [id number] DO [address] [place] [address] 05/15/2021 11:08:40 05/15/2021 11:58:43 Human papilloma virus vaccination given 5806633935 9107 Z23 3rd Gardasil vaccine [id number] GUDELIA LEE APRN [facility] [address] [place] [address] 06/26/2021 11:22:59 06/28/2021 12:00:10 Alopecia 59796519 L65.9 Hypothyroidism 52074170 E03.9 Generalize d anxiety disorder 60419263 F41.1 switch to wellbutrin . Vitamin D deficiency 347 19460 E55.9 Hyperlipidemia 85057424 E78.5 trying to conceive so not able to take medication . 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 If change or any new areas develop recommend recheck Alopecia Areata discussed. For now monitor no treatment [id number] SOBIA CONCEPCION MD [facility] [address] [place] [address] 08/14/2021 15:25:38 08/14/2021 16:15:10 Generalized anxiety disorder 94659811 F41.1 zoloft worked well but sexual SEcont wellbutrin but increase to 300 mgcall me in a month if this is NOT controllin g sx adequately -i'll rec she see mental health providersh e is planning for - options are limited. Administra tion of influenza vaccine 87301229 Z23 [id number] JARETH LUKE PA-C [facility] [place] [facility] [address] [place] [address] 11/13/2021 16:00:10 11/13/2021 16:51:48 Acute urinary tract infection 025037153 N39.0 Risks and benefits of the new medication discussed with patient, along with reasonable alternativ es. Patient has voiced understand ing and is in agreement with treatment choice. [id number] ALEC DIOP DO OBCRISTOBAL [facility] [address] [place] [address] 11/24/2021 10:45:37 11/27/2021 08:09:48 Amenorrhea 52166281 N91.2 Uncertain viability of 982332983 O36.80X9 Blood work ordered. Ultrasound without any adnexal masses and empty uterus noted. Given her HPI it seems most consistent with a complete miscarriag e, however, ectopic cannot be excluded so we will continue to follow her beta level and her symptoms.P regnancy of unknown location - Since ectopic cannot be ruled out, pt will need to f/u with serial quantitati ve beta-hcg's and US. Will discuss lab results with patient when resulted. Discussed possibilit y of normal vs miscarriag e vs ectopic . Discussed the life threatenin g nature of ectopic if not treated immediatel y. Pt to go to ER immediatel y if abdominal pain, vaginal bleeding of >1 pad/hr or if pt starts to feel lightheade d or dizzy. Discussed the importance of doing serial beta-hcg's . Pt states that she understand s and all questions were answered. [facility] 493498306 Z30.09 Handout provided and fertility education provided. [id number] ALEC DIOP DO [facility] [address] [place] [address] 12/12/2021 10:59:13 12/12/2021 11:57:57 Screening for malignant neoplasm of cervix 846805046 Z12.4 pap collected [facility] surveillance 475273928 Z30.09 Handout provided and fertility education provided last visitprena lorena labs ordered Hypothyroidism 16063515 E03.9 discussed goal of tsh <2.5 Screening mammography 24 338718 Z12.31 mmg due in february, ordered Irregular periods 420069 07 N92.6 skipped cycle this month, likely 2/2 chemical preg this month. will get labs to ensure no abnormalit y. us ordered too. Body mass index 40+ - severely obese 783168507 Z68.42 encouraged healthy diet and exercise encouraged 150 mins moderate activity or 75 mins of vigorous activity weekly Gynecologi c examination 26897000 Z01.419 Pap: ascus 2021repeat pap due and collectedm ammogram februaryrepea t mammogram pending firstbreas t/pelvic exam normal except where otherwise documented f/u 1 year for annual or sooner if neededcont inue care/labs with PCP Atypical s quamous cells of undetermined significance on cervical Papanicolaou smear 146490462 R87.610 2020 ascus [id number] SOBIA CONCEPCION MD [facility] [address] [place] [address] 12/27/2021 10:05:02 12/27/2021 10:59:32 Generalized anxiety disorder 40276770 F41.1 zoloft worked well but sexual SEcont wellbutrin 300 mg Hypothyroidism 03742308 E03.9 cont levo 75 mcg Adult heal th examination 781766789 Z00.00 pap 11/2021-asc us hpv pos-colpo planned for 02/06 mammogram due at age 42-ordered check cv screening labscovid completedf dariusz utdtdap today Vitamin D deficiency 347 69118 E55.9 f/u vit d and will see if needs to continue Screening mammography 24 194839 Z12.31 Administra tion of diphtheria, pertussis, and tetanus vaccine 066662710 Z23 Complete miscarriage 156 811296 O03.9 [id number] ALEC DIOP DO [facility] [address] [place] [address] 02/08/2022 10:32:36 02/08/2022 11:59:31 Atypical squamous cells of undetermined significance on cervical Papanicolaou smear 035597673 R87.610 2020 ascus 2021 ascus +HR HPVcolpo biopsy taken at 4:00. Final plan pending results but likely repeat in 1 year Human deirdre llomavirus deoxyribonucleic acid detected, high risk on cervical specimen 668892493 R87.810 Screening procedure 2012 5006 Z13.9 Family juancarlos nning surveillance 674663635 Z30.09 Handout provided and fertility education provided last visitsheryla lorena labsvarice lla and rubbruna immuneamh 5Reviewed the lab work from last visit. All normal. TSH was not collected however, will collect today. Hypothyroidism 35749295 E03.9 discussed goal of tsh <2.5FT4 wnl TSH ordered Irregular periods 514063 07 N92.6 skipped cycle this month, likely 2/2 chemical preg this month. will get labs to ensure no abnormalit y. us ordered wnlCycle has now regulated. Body mass index 40+ - severely obese 546849489 Z68.42 encouraged healthy diet and exerciseen couraged 150 mins moderate activity or 75 mins of vigorous activity weeklyEnco uraged healthy weight going into so encouraged weight loss. Discussed increased risks of obesity in . Encourage vitamins with folic acid. Egg reserve looks good but increased risk of genetic issues and trisomy. [id number] SOBIA CONCEPCION MD [facility] [address] [place] [address] 04/19/2022 15:01:12 04/19/2022 15:39:42 Laceration of finger 829142552 S61.210A sutures removed and steri strips placedno infection. has completed keflex.tda p UTD Retinal hemorrhage 36983 008 H35.60 glc normal and bp normal. [id number] DON CHOUDHURY APRN [facility] [address] [place], [place] [address] 11/01/2022 14:22:06 11/07/2022 13:21:49 Respiratory tract congestion and cough 939641661 R05.2 chronic stable acute issue, extending therapy for 2 more weeks. [id number] DO NUSRAT VILLAVICENCIO [facility] [address] [place] [address] 12/21/2022 13:28:56 12/21/2022 14:33:01 Family planning surveillance 642084274 Z30.09 O+ Handout provided and fertility education providedSe men analysis, egg reserve, remaining labs ordered. Will alter as needed and recommend fertility referral. Patient is agreeable. Referral placed. Advanced m aternal age 038455217 O09.519 Increased risks of infertilit y as well as various chromosoma l defects. All questions answered. Hypercholesterolemia 136 78660 E78.00 rec stopping atorvastat in when trying to conceive [id number] SOBIA CONCEPCION MD [facility] [address] [address] 12/31/2022 08:58:32 01/04/2023 13:33:40 Adult health examination 654236075 Z00.00 pap 11/2021-asc us hpv pos-sees LC equity sales assistant mammogram due at age 42-ordered againcovid x5flu utdtdap 2021 Generalize d anxiety disorder 16888513 F41.1 zoloft worked well but sexual SEcont wellbutrin 300 mg-OB is ok w/ this Hypothyroidism 25865174 E03.9 cont levo 100 mcgshe has missed some doses-tsh was high- Vitamin D deficiency 347 05715 E55.9 vit d normalized dec 2022. Screening mammography 24 316793 Z12.31 Morbid obesity 089186626 E66.01 BMI 47. she is regaining weight Mixed hyperlipidemia 267 145890 E78.2 start atorvastat in 12/28/21-bu t stopped it bc now trying for . LDL Dec 2021.rec working on low fat diet w/ eliminatio n/small amounts of red meat, dairy, fats, oils. Female hirsutism 4566165 9 L68.0 regular menses [id number] DO NUSRAT VILLAVICENCIO [facility] [address] [place] [address] 06/12/2023 15:19:28 06/12/2023 15:59:44 Family planning surveillance 138738479 Z30.09 patients partner getting Hermilo plans to follow up with TRISTAN lang age 892804992 O09.519 previously addressed increased risks of infertilit y as well as various chromosoma l defects. no new questions Dysmenorrhea 976460169 N 94.6 exam normalus ordereddis cussed tx with heat or premedicat ion. patient will try that Screening for malignant neoplasm of cervix 358064903 Z12.4 pap collected Screening mammography 24 969811 Z12.31 cont annual mmg Body mass index 40+ - severely obese 328136141 Z68.42 encouraged healthy diet and exercise encouraged 150 mins moderate activity or 75 mins of vigorous activity weekly Gynecologi c examination 87028846 Z01.419 Pap: ascus 2022repeat pap due and collectedm ammogram 3repeat mammogram annuallybr east exam deferred per patient/pe lvic exam normal except where otherwise documented f/u 1 year for annual or sooner if neededcont inue care/labs with PCP Atypical s quamous cells of undetermined significance on cervical Papanicolaou smear 598413843 R87.610 ascus +HR HPV, rpt pap ordered Hypothyroidism 12510828 E03.9 discussed goal of tsh <2.5TSH elevated 03/2022, increased tsh, rpt tsh ordered [id number] DO NUSRAT VILLAVICENCIO [address] [place] [address] 06/21/2023 15:21:24 06/22/2023 04:42:10 Family planning surveillance 292573816 Z30.09 patients partner getting SAstill plans to follow up with Allie robb Advanced m aternal age 152458427 O09.519 previously addressed increased risks of infertilit y as well as various chromosoma l defects. no new questions Dysmenorrhea 627103878 N 94.6 exam normalus 2 small fibroidsgi jed these small fibroids no change to previous plan. still ok for heat or premedicat ion. Hypothyroidism 65098644 E03.9 discussed goal of tsh <2.5TSH elevated 03/2022, increased tsh, rpt tsh further elevated. discussed with patient and upon further questionin g we discovered she had not understood she couldnt have even liquid po intake for 30 mins following dosage.onl y taking synthroid correctly x a few days. will rpt on 09/06 to ensure improving once taken correctly [id number] DO NUSRAT VILLAVICENCIO [facility] [address] [place] [address] 10/16/2023 08:45:21 10/16/2023 09:27:09 Hypothyroidism 32987905 E03.9 has not seen endocrine, tsh ordered Uncertain viability of 104215835 O36.80X9 O+ Blood work ordered. Ultrasound without any adnexal masses and empty uterus noted. Given her HPI it seems most consistent with a complete miscarriag e, however, ectopic cannot be excluded so we will continue to follow her beta level and her symptoms.P regnancy of unknown location - Since ectopic cannot be ruled out, pt will need to f/u with serial quantitati ve beta-hcg's and US. Will discuss lab results with patient when resulted. Discussed possibilit y of normal vs miscarriag e vs ectopic . Discussed the life threatenin g nature of ectopic if not treated immediatel y. Pt to go to ER immediatel y if abdominal pain, vaginal bleeding of >1 pad/hr or if pt starts to feel lightheade d or dizzy. Discussed the importance of doing serial beta-hcg's . Pt states that she understand s and all questions were answered. [place] travel out [place] the country on saturday. discussed risks of unknown location. patient will cancel trip unless can get us prior to leaving. Advanced m aternal age 839809133 O09.519 Hypothyroi dism in 598279910 E03.9 [id number] DO NUSRAT VILLAVICENCIO [facility] [address] [place] [address] 4 11/04/2023 09:44:48 11/04/2023 10:27:46 Uncertain viability of [id number] O36.80X9 O+ 11/04/23 US with GS, discussed and repeat US in 2 weeks. call/retur n precaution s reviewed Hypothyroidism 95688170 E03.9 TSH 5.86 10/16/23, rpt tsh ordered Advanced m aternal age [id number] O09.519 Hypothyroi dism in 785246468 E03.9 [id number] DO NUSRAT VILLAVICENCIO [facility] [address] [place] [address] 11/20/2023 15:37:05 11/20/2023 16:21:21 Serum thyroid stimulating hormone level outside reference range 908459299 R89.1 TSH with reflex T4 given history of noncomplia nce. Complete miscarriage 156 753412 O03.9 Discussed trending beta back to normal. Advised patient to send a message to [facility] in [place] as she was previously being seen by them. Recurrent miscarriage 10 3244810 N96 Discussed first was chemical and then this was her first real miscarriag e but patient is 43 and very anxious and would prefer to have workup for recurrent miscarriag e. Labs ordered. [id number] DANIEL ELIZALDE MD ENDOCRINO [address] [place] [address] 12/16/2023 14:36:07 12/17/2023 04:39:16 Hypothyroidism 43950559 E03.9 New consultati on uncontroll ed hypothyroi dism2 miscarriag esPrevious ly per records, nonadheren ce to thyroid hormone replacemen t therapyMor e recently upon medical advice, she is taking her medicine appropriat yobani as instructed .TSH is still elevated at 5.27 on 11/20/2023 after increasing her dose to her current dose of 175 mcg In view of the above, I recommende d to discontinu e levothyrox ine 175 mcg and start brand Synthroid 200 mcg every a.m. Patient was instructed on the appropriat e method of levothyrox in administra tion to be taken every a.m. on an empty stomach as new food, drinks or other medication s for at least 30 minutes. PPI and calcium -containin g preparatio ns is preferred to be given at least of her hours before or after levothyrox in therapy. Provided patient with 4-week [facility] Synthroid Recheck TSH and free T4 after 4 to 6 weeks Follow-up Further adjustment as appropriat e We had a discussion today about hypothyroi dism deleteriou s consequenc es maternally and unilateral ly. Patient verbalized understand ing and agreed with the above mentioned plan of care. I would like to thank Dr. Diop for the opportunit y to participat e in the care of this patient. [id number] SOBIA CONCEPCION MD INTERNAL MEDICINE [address] [address] 01/02/2024 13:49:42 01/15/2024 11:45:56 Adult health examination 080707769 Z00.00 papsees LC equity sales assistant mammogram 12/2022-ord eredcovid x5flu utdtdap 2021 Generalize d anxiety disorder 64221462 F41.1 zoloft worked well but sexual SEcont wellbutrin 300 mg-OB is ok w/ this Hypothyroidism 82499783 E03.9 cont synthroid 200 per ENDO Vitamin D deficiency 347 62210 E55.9 f/u vit d Mixed hyperlipidemia 267 388711 E78.2 start atorvastat in 12/28/21-bu t stopped it bc now trying for . LDL 212 dec 2021.rec working on low fat diet w/ eliminatio n/small amounts of red meat, dairy, fats, oils. Pruritic rash 91744070 L 28.2 trial tac Foot callus 983129528 L8 4 rec after bath/showe r to file down, small amounts as needed, look at shoewear Screening mammography 24 722573 Z12.31 Administra tion of influenza vaccine 58891288 Z23 [id number] DANIEL ELIZALDE MD ENDOCRINO [facility] [address] [place] [address] 01/16/2024 13:44:45 01/16/2024 16:09:55 Hypothyroidism 73131882 E03.9 Follow-up uncontroll ed hypothyroi dism2 miscarriag esPrevious ly per records, nonadheren ce to thyroid hormone replacemen t therapyMor e recently upon medical advice, she is taking her medicine appropriat yobani as instructed .TSH is elevated at 5.27 on 11/20/2023 after increasing her dose to her current dose of 175 mcgShe denies any significan t improvemen t or worsening on brand Synthroid 100 mcgPatient was instructed on the appropriat e method of levothyrox in administra tion to be taken every a.m. on an empty stomach as new food, drinks or other medication s for at least 30 minutes. PPI and calcium -containin g preparatio ns is preferred to be given at least of her hours before or after levothyrox in therapy.Re check TSH and free [id number] adjustment as appropriat e to keep TSH levels below 2.5. Patient verbalized understand ing and agreed with the above mentioned plan of care. [id number] SOBIA CONCEPCION MD INTERNAL MEDICINE [address] [place] [address] 01/05/2025 14:01:03 01/11/2025 11:20:42 Adult health examination 568316168 Z00.00 pap sees LC equity sales assistant mammogram 01/2024-ord eredcovid x5flu utdtdap 2021 Generalize d anxiety disorder 88319712 F41.1 anxiety plus depression zoloft worked well but sexual SEcont wellbutrin 300 mg-OB is ok w/ this Hypothyroidism 90568385 E03.9 cont synthroid 200 per ENDO Vitamin D deficiency 347 85140 E55.9 f/u vit d Mixed hyperlipidemia 267 054829 E78.2 start atorvastat in 12/28/21-bu t stopped it bc now trying for . LDL 212 dec 2021.rec working on low fat diet w/ eliminatio n/small amounts of red meat, dairy, fats, oils. Screening mammography 24 024697 Z12.31 Fertility problem 283758 06 N97.9 working w/ IVF [id number] DANIEL ELIZALDE MD ENDOCRINO [address] [place] [address] 01/14/2025 14:24:47 01/14/2025 15:17:20 Hypothyroidism 31446762 E03.9 Appears a clinically euthyroidM ost recent TSH of 1.84 on 12/02/2023 atient was reinstruct ed on the appropriat e method of levothyrox in administra tion to be taken every a.m. on an empty stomach as new food, drinks or other medication s for at least 30 minutes. PPI and calcium -containin g preparatio ns is preferred to be given at least of her hours before or after levothyrox in therapy.Co ntinue current Synthroid 200 mcg every a.m. Prescripti on sent to her mail order pharmacy 1 year follow-up or earlier appointmen t if needed Patient verbalized understand ing and agreed with the above mentioned plan of care. Health Concerns Section Related Observation LastModified by Organization Detai ls LastModified Time None Recorded Concern Status LastModified by Organization Details LastModified Time None Recorded Advance Directives Directive None Recorded Payers Insurance Date Sequence Insurance Name Policy Number Policy Alvarez Covered Member ID Alvarez Member ID Guarantor Name [id number] PAYMENT PLAN Judit Dominguez 05/01/2025 1 [id number] [id number] Jonathan [id number] Judit Dominguez Notes Date Note Type Note Provider Name and Address Organization Details Recorded Time 4 text/html 43-year-old female patient with a past medical history as detailed in the problem significant for vitamin D deficiency, longstanding history of hypothyroidism seen today as a new consultation uncontrolled hypothyroidism. Requesting provider Dr. Diop Reported long his standing history of hypothyroidism and upon reviewing her records she has fluctuating TSH levels and she stated that while previously she used to miss some doses more recently she is taking her medicine religiously as instructed She denies any palpitations, shaking, excessive sweating or heat intolerance Reported improved energy but she denies any fatigue, dry skin, hair loss or leg cramping Currently takes levothyroxine 175 mcg every am up from 150 DANIEL ELIZALDE MD [address] [place], [place], [address], [facility] 12/16/2023 16:37:30 4 text/html annual --anxiety-doing well on buproprion 300mg--hx vit d def-labs recently wnl--hypothyroidism-synt hroid 200mcg and due for labs upcoming--hl on atorvastatin 10-but is trying for and stopped it. rash itchy to upper right armbump to right lateral foot SOBIA CONCEPCION MD [address] [place] [address], [phone], [facility] 01/02/2024 14:19:15 4 text/html 43-year-old female patient with a past medical history as detailed in the problem significant for vitamin D deficiency, longstanding history of hypothyroidism seen today as a new for any 6-week follow-up uncontrolled hypothyroidism.Initial consultation on 12/16/[address] Sevillaorted long his standing history of hypothyroidism and upon reviewing her records she has fluctuating TSH levels and she stated that while previously she used to miss some doses more recently she is taking her medicine religiously as instructedShe denies any palpitations, shaking, excessive sweating or heat intoleranceReported improved energy but she denies any fatigue, dry skin, hair loss or leg crampingCurrently takes levothyroxine 175 mcg every am up from 150Interval history: Levothyroxine dose increased to 200 mcg and she was switched to Synthroid 200 mcg every a.m. Takes Synthroid appropriately as instructed. She denies any palpitations, shaking, excessive sweating or heat intolerance She denies any worsening fatigue or dry skin or hair loss or leg cramping DANIEL ELIZALDE MD [address] [place] [address], [phone], [facility] 01/16/2024 16:07:57 5 text/html annual --anxiety and depression-doing well on buproprion 300mg--hx vit d def--hypothyroidism-synt hroid 200mcg--hl on atorvastatin 10-but is trying for and stopped it. doing ivf-has one more round upcoming. 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 had flu a few weeks agofeeling betterno acute issues SOBIA CONCEPCION MD [address] [place] [address], [phone], [facility] 01/05/2025 14:33:03 02/27/202 5 text/html 44-year-old female patient with a past medical history as detailed in the problem significant for vitamin D deficiency, longstanding history of hypothyroidism seen today as a new for any 6-week follow-up uncontrolled hypothyroidism.Initial consultation on 4Requesting provider Dr. Sevillaorted long his standing history of hypothyroidism and upon reviewing her records she has fluctuating TSH levels and she stated that while previously she used to miss some doses more recently she is taking her medicine religiously as instructedShe denies any palpitations, shaking, excessive sweating or heat intoleranceReported improved energy but she denies any fatigue, dry skin, hair loss or leg crampingHer Synthroid dose was increased from 100 5275 and 2 Synthroid 200 mcg every a.m.Last office visit on 01/16/2024Interval history:She continues to take brand Synthroid 200 mcg every a.m. appropriately as instructed She denies any symptoms of exogenous hyperthyroid such as palpitations, shaking, excessive sweating or heat intoleranceShe denies any symptoms of hypothyroidism such as worsening fatigue or dry skin or hair loss or leg crampingShe also denies any obstructive neck symptoms such as difficulty swallowing, difficulty breathing or choking lying flat DANIEL ELIZALDE MD [address] [place] [address], [phone], [facility] 01/14/2025 15:15:48 OBGyn Episode No OBEpisode recorded.
--- OUTSIDE RECORDS SUMMARY | 2025-05-05 07:20 | XMS_ITS | Patient Health Record ---
Author Organization [facility] Address [address] [place] [address] Care Team Providers Care Tea Bag Machine Tender Name Role Phone Sherly Ramachandran Primary Care [...] Status W/U Status Risk Notes Problem Sinusitis ([id number]) Sinusitis (J32.9) Active confirmed Plan Of Treatment Pending Test Test Name Order Date Urinalysis (IH) 05/30/2010 Insurance Providers Payer Name Payer Address Payer Phone Subscriber Number Group Number Insured Name Patient Relationship to Insured Coverage Start Date Coverage End Date [facility] [address] [place] [address] [id number] Judit Kelly Self - patient is the insured Medications Administered Medication Instructions Date of Administration Dosage Notes Kenalog 40 (40mg Admin) 05/26/2018 1 mL Medical (General) History Medical History History ICD Code None Surgical History Surgery Date(Month/Year) none Hospitalization History Reason Date(Month/Year) concussion at age 12yrs
--- OUTSIDE RECORDS SUMMARY | 2025-05-05 07:20 | XMS_ITS | Clinical Summary ---
Author Organization [facility] Address [facility] [place] [address] Care Team Providers Care City Solicitor Name Role Phone Sherly Ramachandran MD Primary Care Provider [phone] Source Comments This information has been disclosed [...] therelease of HIV test results or diagnoses. [id number] Allergies No known active allergies Medications [...] Department Care Team Description 02/22/2025 Chart Note [facility] Reproductive Endocrinology and Infertility at [facility] Office [address] [facility] [address] [place] [address] Kamila Yancey Pt stopped by the office [...] 5.6 4.0 - 6.0 % Whole Blood [facility] Provider MD LAB BLOOD ORDERABLES Chiqui l Result from Last 3 Months or Most Recently Relevant to Health Maintenance Insurance Care Teams City Solicitor Relationship Specialty Start Date End Date Sheryl Ramachandran MD [address] [place] [id number] PCP - General Internal Medicine 03/26/24
--- OUTSIDE RECORDS SUMMARY | 2025-05-05 07:20 | XMS_ITS | Encounter Summary ---
Author Organization [facility] Address [address] [place] [address] Care Team Providers Care Solar Energy Technician Name Role Phone Sherly Ramachandran MD Primary Care Provider [phone] Source Comments This information has been disclosed [...] release of HIV test results or diagnoses. QSL8345.24 Health Encounter Details Date Type Department Care Team (Late st Contact Info) Description 02/22/2025 Chart Note [facility] Reproductive Endocrinology and Infertility at [facility] [address] [facility] [address] [place] [address] Kamila Yancey Pt stopped by the office [...] on filedocumented in this encounter Care Teams Solar Energy Technician Relationship Specialty Start Date End Date Sherly Ramachandran MD [address] [place] [phone] PCP - General Internal Medicine 03/26/24 documented as of this encounter
== END 2025-05-05 23:59 | disposition home or self-care (01) ==
LOC: RAD 07:18
PROVIDERS: PCP Internal Medicine; Visit Provider Obstetrics & Gynecology Reproductive Endocrinology
DX: O28.3 Abnormal ultrasonic finding on antenatal screening of mother (principal); O34.81 Maternal care for other abnormalities of pelvic organs, first trimester; O34.11 Maternal care for benign tumor of corpus uteri, first trimester; O09.01 Supervision of pregnancy with history of infertility, first trimester; N83.12 Corpus luteum cyst of left ovary; Z3A.01 Less than 8 weeks gestation of pregnancy
CPT/HCPCS: 76817

== ENCOUNTER 2025-05-12 12:07 | Outpatient (CLI) | payer BC, SELFPAY ==
--- OUTSIDE RECORDS SUMMARY | 2025-05-12 12:10 | XMS_ITS | Patient Health Record ---
Author Organization [facility] Address [address] [place] [address] Care Team Providers Care Field Marketer Name Role Phone Sherly Ramachandran Primary Care [...] Status W/U Status Risk Notes Problem Sinusitis (46169571) Sinusitis (J32.9) Active confirmed Plan Of Treatment Pending Test Test Name Order Date Urinalysis (IH) 05/30/2010 Insurance Providers Payer Name Payer Address Payer Phone Subscriber Number Group Number Insured Name Patient Relationship to Insured Coverage Start Date Coverage End Date [facility] [address] [place] [address] [id number] Judit Kelly Self - patient is the insured Medications Administered Medication Instructions Date of Administration Dosage Notes Kenalog 40 (40mg Admin) 05/26/2018 1 mL Medical (General) History Medical History History ICD Code None Surgical History Surgery Date(Month/Year) none Hospitalization History Reason Date(Month/Year) concussion at age 12yrs
--- OUTSIDE RECORDS SUMMARY | 2025-05-12 12:10 | XMS_ITS | Clinical Summary ---
Author Organization [facility] Address [facility] [place] [address] Care Team Providers Care Jacquard Loom Fixer Name Role Phone Sherly Ramachandran MD Primary Care Provider [phone] Source Comments This information has been disclosed [...] therelease of HIV test results or diagnoses. [id number] Allergies No known active allergies Medications [...] Department Care Team Description 02/22/2025 Chart Note [facility] Reproductive Endocrinology and Infertility at [facility] Office [address] [facility] [address] [place] [address] Kamila Yancey Pt stopped by the office [...] 5.6 4.0 - 6.0 % Whole Blood [facility] Provider MD LAB BLOOD ORDERABLES Chiqui l Result from Last 3 Months or Most Recently Relevant to Health Maintenance Insurance Care Teams Jacquard Loom Fixer Relationship Specialty Start Date End Date Sherly Ramachandran MD [address] [place] [phone] PCP - General Internal Medicine 03/26/24
[2025-05-12 12:58] LABS: HCG,Quantitative 6 mIU/ml (0-5.42)
== END 2025-05-12 23:59 | disposition home or self-care (01) ==
LOC: LAB 12:08
PROVIDERS: PCP Internal Medicine; Visit Provider Obstetrics & Gynecology Reproductive Endocrinology
DX: O02.1 Missed abortion (principal); Z3A.00 Weeks of gestation of pregnancy not specified
CPT/HCPCS: 36415; 84702

== ENCOUNTER 2025-05-19 10:39 | Outpatient (CLI) | payer BC, SELFPAY ==
--- OUTSIDE RECORDS SUMMARY | 2025-05-19 10:43 | XMS_ITS | Patient Health Record ---
Author Organization [facility] Address [address] [place] [address] Care Team Providers Care Leather Coater Name Role Phone Sherly Ramachandran Primary Care [...] Status W/U Status Risk Notes Problem Sinusitis ([id number]) Sinusitis (J32.9) Active confirmed Plan Of Treatment Pending Test Test Name Order Date Urinalysis (IH) 05/30/2010 Insurance Providers Payer Name Payer Address Payer Phone Subscriber Number Group Number Insured Name Patient Relationship to Insured Coverage Start Date Coverage End Date [facility] [address] [place] [address] [id number] Judit Kelly Self - patient is the insured Medications Administered Medication Instructions Date of Administration Dosage Notes Kenalog 40 (40mg Admin) 05/26/2018 1 mL Medical (General) History Medical History History ICD Code None Surgical History Surgery Date(Month/Year) none Hospitalization History Reason Date(Month/Year) concussion at age 12yrs
--- OUTSIDE RECORDS SUMMARY | 2025-05-19 10:44 | XMS_ITS | Data Portability ---
Author Organization [facility] [place] GUSTABO MosquedaS AU GRES CLOSED Address [address] [facility] [address] [place] [address] Care Team Providers Care Biological Lab Technician Name Role Phone SOBIA CONCEPCION Primary Care Provider Assessment No assessment recorded. Plan of Treatment Reminders Order Date Submit Date Provider Last Modified By Organization Details Last Modified Time Details Appointments MAMMOGRA M 2024 04:30P M MAMMOGRAM Not available Not available Not available RECHECK 2025 11:30A M DANIEL ELIZALDE MD Not available Not available Not available Lab vitamin D, 25-hydro xy, total, serum 2024 025 [facility], [address] [place] [address], [address], 01/05/2025 16:23:30 lipid panel, serum 2024 025 [facility], [address] [place] [address], [address], 01/05/2025 16:28:55 TSH, serum or plasma 2023 024 [facility], [address] [place] [address], [address], 01/16/2024 15:31:13 T4, free, serum 2023 024 [facility], [address] [place] [address], [address], 01/16/2024 15:31:15 vitamin D, 25-hydro xy, total, serum 2023 024 [email or web address] [facility], [address] [place] [address], [address], 01/09/2024 07:49:04 lipid panel, serum 2023 024 [email or web address] [facility], [address] [place] [address], [address], 01/09/2024 07:49:03 CMP, serum or plasma 2023 024 [email or web address] [facility], [address] [place] [address], [address], 01/09/2024 07:49:03 CBC w/ auto diff [email or web address] [place] [address] Laboratory, [address] [place] [address], [address], 01/09/2024 07:49:03 TSH, serum or plasma 2023 024 [email or web address] [facility], [address] [place] [address], [address], 05/05/2024 07:59:16 T4, free, serum 2023 024 [email or web address] [facility], [address] [place] [address], [address], 05/05/2024 07:59:16 Referral None recorded . Procedures None recorded . Surgeries None recorded . Imaging MAMMO, screenin g, tomosynt hesis, bilatera l, w/ CAD 2024 025 [email or web address] [facility], [address] [place] [address], [address], 04/02/2025 07:40:54 MAMMO, screenin g, tomosynt hesis, bilatera l, w/ CAD 2023 024 [email or web address] [facility], [address] [facility], [place], [address], 01/21/2024 08:13:08 Medication Orders Synthroi d 200 mcg tablet 2024 025 [facility], [address], [address], [place], [address], 01/14/2025 14:45:55 ergocalc iferol (vitamin D2) 1,250 mcg (50,000 unit) capsule 2024 025 [facility], [address] [place] [address] [place], [id number], 01/05/2025 14:41:26 bupropio n HCl XL 300 mg 24 hr tablet, extended release 2024 025 [facility], [address] [place] [address] E Giancar[place] Slater[place], [id number], 01/05/2025 14:41:26 triamcin olone acetonid e 0.1 % topical cream 2023 024 [id number], [address], [place], [id number], 01/02/2024 14:13:28 ergocalc iferol (vitamin D2) 1,250 mcg (50,000 unit) capsule 2023 024 [id number], [address] , [place], [id number], 01/02/2024 14:13:27 bupropio n HCl XL 300 mg 24 hr tablet, extended release [address] [facility][id number], [address], [place], [place], [id number], 01/02/2024 14:16:25 Synthroi d 200 mcg tablet 2023 Hayley [facility], [address] , [address], [place], [address], 12/16/2023 16:30:54 Patient TargetsNo targets recorded. Patient InstructionsNo instructions recorded. Reason for Referral None Reported. Results Created Date Observation Date Name Description Value Unit Range Abnormal Flag Note LastModifiedBy Organization Detail LastModifiedTime 11/20/19 24 11/20/2023 BETA HCG, PREGN CLAUDIA beta HCG, 2153 [...] 18 8099 - 58,17 6 Not Available [facility] [place], [address], 11/20/2023 18:31:19 11/20/1911/20/2023 TSH WITH REFLE X FT4 TSH with reflex FT4 5.270 u[IU] /mL 0.270- 4.200 high Not Available [facility] [address] [place], [address], 11/20/2023 18:33:13 11/20/1911/20/2023 T4,FR EE T4,free 1.43 NG/dL 0.93-1 .70 normal Not Available [facility] [address] [place], [address], 11/20/2023 18:55:06 11/20/1911/21/2023 BETA- 2 MICRO GLOBU ELIAS beta-2 microglobuli n 1.54 mg/L < or = 2.51 normal Not Available [facility] [address] [place], [address], 11/21/2023 15:54:07 11/20/19 24 11/22/2023 ANTIC ARDIO LIPIN ABS anticardioli pin, IgG <2.0 gpl-U /mL normal Value Inter preta tion ----- ----- ----- ---- < 20.0 Antib barb not detec yaneth > or = 20.0 Antib barb detec yaneth Not Available [facility] [address] [place], [address], 11/22/2023 02:42:20 11/20/19 24 11/22/2023 ANTIC ARDIO [...] . For addit ional infor gabe bangura e refer to http: //[facility] [place] stdia gnost ics.c om/fa q/FAQ 109 (This link is being provi ded for infor matdamien nal/ educa chan l purpo ses only. ) Not Available [facility] [address] [place] [address], [address], 11/22/2023 02:42:20 11/20/1911/22/2023 LUPUS ANTIC OAGUL ANT EVALU ATION lupus anticoagulan t SEE BELOW not detect ed normal A Lupus Antic oagul ant is not detec yaneth. For more infor nicole shane on this test, go to: http: //[facility] stdia gnost ics.c om/fa q/FAQ 01v2 (This link is being provi ded for infor matio nal/ educa chan l purpo ses only. ) ----- ----- ----- ----- ----- ----- ----- ----- ----- ----- ----- - This inter preta tion is based on the follo wing test resul ts: Not Available [facility] [place], [address], 11/22/2023 20:24:30 11/20/19 24 11/22/2023 LUPUS ANTIC OAGUL ANT EVALU ATION PTT (lac) screen 35 sec < or = 40 normal Not Available [facility] [place], [address], 11/22/2023 20:24:30 11/20/19 24 11/22/2023 LUPUS ANTIC OAGUL ANT EVALU ATION drvvt screen 36 sec < or = 45 normal Not Available [facility] [address] [place] [address], [address], 11/22/2023 20:24:30 12/05/19 24 12/05/2023 BETA HCG, [...] 18 8099 - 58,17 6 Not Available [facility] [address] [place] [address], [address], 12/05/2023 13:03:56 01/14/20 24 01/14/2024 COMPL ETE BLOOD COUNT white blood cells 6.3 10*3/ uL 3.8-10 .8 normal Not Available [facility] [address] [place] [address], [address], 01/14/2024 10:53:39 01/14/20 24 01/14/2024 COMPL ETE BLOOD COUNT red blood cells 5.13 10*6/ uL 3.80-5 .20 normal Not Available [facility] [address] [place] [address], [address], 01/14/2024 10:53:39 01/14/20 24 01/14/2024 COMPL ETE BLOOD COUNT hemoglobin 13.4 g/dL 12.0-1 6.0 normal Not Available [facility] [address] [place] [address], [address], 01/14/2024 10:53:39 01/14/20 24 01/14/2024 COMPL ETE BLOOD COUNT hematocrit 39.9 % 35.0-4 7.0 normal Not Available [facility] [address] [place] [address], [address], 01/14/2024 10:53:39 01/14/20 24 01/14/2024 COMPL ETE BLOOD COUNT MCV 78 fL 80-100 low Not Available [facility] [address] [place] [address], [address], 01/14/2024 10:53:39 01/14/20 24 01/14/2024 COMPL ETE BLOOD COUNT MCH 26 pg 26-35 normal Not Available [facility] [address] [place] [address], [address], 01/14/2024 10:53:39 01/14/20 24 01/14/2024 COMPL ETE BLOOD COUNT MCHC 34 g/dL 32-36 normal Not Available [facility] [address] [place] [address], [address], 01/14/2024 10:53:39 01/14/20 24 01/14/2024 COMPL ETE BLOOD COUNT RDW 14.6 % 11.0-1 5.0 normal Not Available [facility] [address] [place] [address], [address], 01/14/2024 10:53:39 01/14/20 24 01/14/2024 COMPL ETE BLOOD COUNT MPV 6.2 fL 6.2-10 .5 normal Not Available [facility] [address] [place] [address], [address], 01/14/2024 10:53:39 01/14/20 24 01/14/2024 COMPL ETE BLOOD COUNT platelet count 330 10*3/ uL 150-40 0 normal Not Available [facility] [address] [place] [address], [address], 01/14/2024 10:53:39 01/14/20 24 01/14/2024 COMPL ETE BLOOD COUNT neutrophil,a bsolute 4.0 10*3/ uL 1.6-8. 4 normal Not Available [facility] [address] [place] [address], [address], 01/14/2024 10:53:39 01/14/20 24 01/14/2024 COMPL ETE BLOOD COUNT lymphocyte,a bsolute 1.8 10*3/ uL 0.4-5. 1 normal Not Available [facility] [address] [place] [address], [address], 01/14/2024 10:53:39 01/14/20 24 01/14/2024 COMPL ETE BLOOD COUNT monocyte,abs olute 0.4 10*3/ uL 0.0-1. 2 normal Not Available [facility] [address] [place] [address], [address], 01/14/2024 10:53:39 01/14/20 24 01/14/2024 COMPL ETE BLOOD COUNT eosinophil,a bsolute 0.1 10*3/ uL 0.0-0. 8 normal Not Available [facility] [address] [place] [address], [address], 01/14/2024 10:53:39 01/14/20 24 01/14/2024 COMPL ETE BLOOD COUNT basophil,abs olute 0.0 10*3/ uL 0.0-0. 3 normal Not Available [facility] [address] [place] [address], [address], 01/14/2024 10:53:39 01/14/20 24 01/14/2024 COMPL ETE BLOOD COUNT % neutrophils 62.5 % 42.0-7 8.0 normal Not Available [facility] [address] [place] [address], [address], 01/14/2024 10:53:39 01/14/20 24 01/14/2024 COMPL ETE BLOOD COUNT % lymphocytes 28.3 % 11.0-4 7.0 normal Not Available [facility] [address] [place] [address], [address], 01/14/2024 10:53:39 01/14/20 24 01/14/2024 COMPL ETE BLOOD COUNT % monocytes 7.0 % 0.0-11 .0 normal Not Available [facility] [address] [place] [address], [address], 01/14/2024 10:53:39 01/14/20 24 01/14/2024 COMPL ETE BLOOD COUNT % eosinophils 1.7 % 0.0-7. 0 normal Not Available [facility] [address] [place] [address], [address], 01/14/2024 10:53:39 01/14/20 24 01/14/2024 COMPL ETE BLOOD COUNT % basophils 0.5 % 0.0-3. 0 normal Not Available [facility] [address] [place] [address], [address], 01/14/2024 10:53:39 01/14/20 24 01/14/2024 COMPL ETE BLOOD COUNT nucleated red cells 0.1 % 0.0-0. 9 normal Not Available [facility] [address] [place] [address], [address], 01/14/2024 10:53:39 01/14/20 24 01/14/2024 COMPL ETE BLOOD COUNT nucleated RBCs, absolute 0.00 10*3/ uL not estab. normal Not Available [facility] [address] [place] [address], [address], 01/14/2024 10:53:39 01/14/20 24 01/14/2024 LIPID PROFI LE HDL cholesterol 47 mg/dL 50-242 low Not Available [facility] [address] [place] [address], [address], 01/14/2024 10:55:34 01/14/20 24 01/14/2024 LIPID PROFI LE triglyceride s 129 mg/dL 0-149 normal TRIGL YCERI DE RANGE S WATSON L: < 150 BORDE RLINE HIGH: 150 - 199 HIGH: 200 - 499 VERY HIGH: > OR = 500 Not Available [facility] [address] [place] [address], [address], 01/14/2024 10:55:34 01/14/20 24 01/14/2024 LIPID PROFI LE cholesterol 254 mg/dL 0-199 high ANAHI STERO L (TOTA L) RANGE S KLAUS ABLE: < 200 BORDE RLINE : 200 - 239 HIGHE R RISK: > 239 Not Available [facility] [address] [place] [address], [address], 01/14/2024 10:55:34 01/14/20 24 01/14/2024 LIPID PROFI LE LDL cholesterol 181 mg/dL _(edwin c) 0-99 high LDL ANAHI STERO L RANGE S OPTIM AL: < 100 NEAR/ ABOVE OPTIM AL: 100 - 129 BORDE RLINE HIGH: 130 - 159 HIGH: 160 - 189 VERY HIGH: > OR = 190 Not Available [facility] [address] [place] [address], [address], 01/14/2024 10:55:34 01/14/20 24 01/14/2024 COMP. METAB OLIC PANEL glucose 86 mg/dL 74-100 normal Not Available [facility] [address] [place] [address], [address], 01/14/2024 10:55:36 01/14/20 24 01/14/2024 COMP. METAB OLIC PANEL blood urea nitrogen 11 mg/dL 6-20 normal Not Available [facility] [address] [place] [address], [address], 01/14/2024 10:55:36 01/14/20 24 01/14/2024 COMP. METAB OLIC PANEL creatinine 0.87 mg/dL 0.50-0 .95 normal Not Available [facility] [address] [place] [address], [address], 01/14/2024 10:55:36 01/14/20 24 01/14/2024 COMP. METAB OLIC PANEL BUN/creatini ne ratio 13 (calc ) 10-20 normal Not Available [facility] [address] [place] [address], [address], 01/14/2024 10:55:36 01/14/20 24 01/14/2024 COMP. METAB OLIC PANEL sodium 139 mmol/ L 136-14 5 normal Not Available [facility] [address] [place] [address], [address], 01/14/2024 10:55:36 01/14/20 24 01/14/2024 COMP. METAB OLIC PANEL potassium 4.2 mmol/ L 3.4-5. 0 normal Not Available [facility] [address] [place] [address], [address], 01/14/2024 10:55:36 01/14/20 24 01/14/2024 COMP. METAB OLIC PANEL chloride 102 mmol/ L 98-107 normal Not Available [facility] [address] [place] [address], [address], 01/14/2024 10:55:36 01/14/20 24 01/14/2024 COMP. METAB OLIC PANEL carbon dioxide 26 mmol/ L 22-31 normal Not Available [facility] [address] [place] [address], [address], 01/14/2024 10:55:36 01/14/20 24 01/14/2024 COMP. METAB OLIC PANEL anion gap 11 (calc ) 7-25 normal Not Available [facility] [address] [place] [address], [address], 01/14/2024 10:55:36 01/14/20 24 01/14/2024 COMP. METAB OLIC PANEL calcium 9.1 mg/dL 8.6-10 .2 normal Not Available [facility] [address] [place] [address], [address], 01/14/2024 10:55:36 01/14/20 24 01/14/2024 COMP. METAB OLIC PANEL total protein 8.3 g/dL 6.4-8. 3 normal Not Available [facility] [address] [place] [address], [address], 01/14/2024 10:55:36 01/14/20 24 01/14/2024 COMP. METAB OLIC PANEL albumin 4.3 g/dL 3.5-5. 2 normal Not Available [facility] [address] [place] [address], [address], 01/14/2024 10:55:36 01/14/20 24 01/14/2024 COMP. METAB OLIC PANEL globulin 4.0 1.5-4. 5 normal Not Available [facility] [address] [place] [address], [address], 01/14/2024 10:55:36 01/14/20 24 01/14/2024 COMP. METAB OLIC PANEL albumin/glob ulin ratio 1.1 (calc ) 1.1-2. 5 normal Not Available [facility] [address] [place] [address], [address], 01/14/2024 10:55:36 01/14/20 24 01/14/2024 COMP. METAB OLIC PANEL bilirubin, total 0.2 mg/dL 0.1-1. 2 normal Not Available [facility] [address] [place] [address], [address], 01/14/2024 10:55:36 01/14/20 24 01/14/2024 COMP. METAB OLIC PANEL alkaline phosphatase 85 U/L 30-121 normal Not Available [facility] [address] [place] [address], [address], 01/14/2024 10:55:36 01/14/20 24 01/14/2024 COMP. METAB OLIC PANEL AST 16 U/L 0-32 normal Not Available [facility] [address] [place] [address], [address], 01/14/2024 10:55:36 01/14/20 24 01/14/2024 COMP. METAB OLIC PANEL ALT 16 U/L 0-33 normal Not Available [facility] [address] [place] [address], [address], 01/14/2024 10:55:36 01/14/20 24 01/14/2024 COMP. METAB [...] nts refer to https ://nathalia edward.unruly rg/pr veda albarado s/KDO QI/gf r_cal culat orPed Not Available [facility] [address] [place] [address], [address], 01/14/2024 10:55:36 01/14/20 24 01/14/2024 VITAM IN D 25-OH vitamin D 25-oh, total 53 NG/mL >=30 NG/mL normal Not Available [facility] [address] [place] [address], [address], 01/14/2024 11:30:17 01/16/20 24 01/16/2024 TSH TSH 0.916 u[IU] /mL 0.270- 4.200 normal Not Available [facility] [place], [address], 01/16/2024 15:31:13 01/16/20 24 01/16/2024 T4,FR EE T4,free 1.75 NG/dL 0.93-1 .70 high Not Available [facility] [address] [place] [address], [address], 01/16/2024 15:31:15 06/24/20 24 06/24/2024 TSH WITH REFLE X FT4 TSH with reflex FT4 0.514 u[IU] /mL 0.270- 4.200 normal Not Available [facility] [address] [place] [address], [address], 06/24/2024 17:58:28 10/12/20 24 10/15/2024 ANTI- MULLE BERRY, FEMAL E anti-mulleri an, female 2.37 NG/mL 0.01-2 .99 normal Not Available [facility] [address] [place] [address], [address], 10/15/2024 14:53:57 10/12/20 24 10/12/2024 TSH TSH 0.513 u[IU] /mL 0.270- 4.200 normal Not Available [facility] [address] [place] [address], [address], 10/12/2024 10:43:18 10/12/20 24 10/12/2024 FOLLI HONORIO [...] - 134.8 MIU/M L . Not Available [facility] [address] [place] [address], [address], 10/12/2024 10:43:17 10/12/20 24 10/12/2024 LUTEN IZING HORMO NE lutenizing hormone 5.3 m[IU] /mL 1.0-95 .6 normal LH EXPEC YANETH VALUE S WOMEN : FOLLI CULAR PHASE 2.4-1 2.6 mIU/m L OVULA TION PHASE 14.0- 95.6 mIU/m L LUTEA L PHASE 1.0-1 1.4 mIU/m L POSTM ENOPA USE 7.7-5 8.5 mIU/m L . Not Available [facility] [address] [place], [address], 10/12/2024 10:43:16 10/12/20 24 10/12/2024 PROGE STERO [...] 58.7 - 214.0 ng/mL . Not Available [facility] [address] [place], [address], 10/12/2024 10:43:15 10/12/20 24 10/12/2024 ESTRA DIOL [...] > 30,00 0 pg/mL . Not Available [facility] [address] [place] [address], [address], 10/12/2024 10:43:14 10/12/20 24 10/12/2024 BETA HCG, [...] 18 8099 - 58,17 6 Not Available [facility] [address] [place] [address], [address], 10/12/2024 10:40:29 10/12/20 24 10/12/2024 COMP. METAB OLIC PANEL glucose 83 mg/dL 74-100 normal Not Available [facility] [address] [place] [address], [address], 10/12/2024 10:40:12 10/12/20 24 10/12/2024 COMP. METAB OLIC PANEL blood urea nitrogen 13 mg/dL 6-20 normal Not Available [facility] [address] [place] [address], [address], 10/12/2024 10:40:12 10/12/20 24 10/12/2024 COMP. METAB OLIC PANEL creatinine 0.78 mg/dL 0.50-0 .95 normal Not Available [facility] [address] [place] [address], [address], 10/12/2024 10:40:12 10/12/20 24 10/12/2024 COMP. METAB OLIC PANEL BUN/creatini ne ratio 17 (calc ) 10-20 normal Not Available [facility] [address] [place] [address], [address], 10/12/2024 10:40:12 10/12/20 24 10/12/2024 COMP. METAB OLIC PANEL sodium 140 mmol/ L 136-14 5 normal Not Available [facility] [address] [place] [address], [address], 10/12/2024 10:40:12 10/12/20 24 10/12/2024 COMP. METAB OLIC PANEL potassium 3.8 mmol/ L 3.4-5. 0 normal Not Available [facility] [address] [place] [address], [address], 10/12/2024 10:40:12 10/12/20 24 10/12/2024 COMP. METAB OLIC PANEL chloride 102 mmol/ L 98-107 normal Not Available [facility] [address] [place] [address], [address], 10/12/2024 10:40:12 10/12/20 24 10/12/2024 COMP. METAB OLIC PANEL carbon dioxide 26 mmol/ L 22-31 normal Not Available [facility] [address] [place] [address], [address], 10/12/2024 10:40:12 10/12/20 24 10/12/2024 COMP. METAB OLIC PANEL anion gap 12 (calc ) 7-25 normal Not Available [facility] [address] [place] [address], [address], 10/12/2024 10:40:12 10/12/20 24 10/12/2024 COMP. METAB OLIC PANEL calcium 9.2 mg/dL 8.6-10 .2 normal Not Available [facility] [address] [place] [address], [address], 10/12/2024 10:40:12 10/12/20 24 10/12/2024 COMP. METAB OLIC PANEL total protein 7.4 g/dL 6.4-8. 3 normal Not Available [facility] [address] [place] [address], [address], 10/12/2024 10:40:12 10/12/20 24 10/12/2024 COMP. METAB OLIC PANEL albumin 4.2 g/dL 3.5-5. 2 normal Not Available [facility] [address] [place] [address], [address], 10/12/2024 10:40:12 10/12/20 24 10/12/2024 COMP. METAB OLIC PANEL globulin 3.2 1.5-4. 5 normal Not Available [facility] [address] [place] [address], [address], 10/12/2024 10:40:12 10/12/20 24 10/12/2024 COMP. METAB OLIC PANEL albumin/glob ulin ratio 1.3 (calc ) 1.1-2. 5 normal Not Available [facility] [address] [place] [address], [address], 10/12/2024 10:40:12 10/12/20 24 10/12/2024 COMP. METAB OLIC PANEL bilirubin, total 0.2 mg/dL 0.1-1. 2 normal Not Available [facility] [address] [place] [address], [address], 10/12/2024 10:40:12 10/12/20 24 10/12/2024 COMP. METAB OLIC PANEL alkaline phosphatase 75 U/L 30-121 normal Not Available [facility] [address] [place] [address], [address], 10/12/2024 10:40:12 10/12/20 24 10/12/2024 COMP. METAB OLIC PANEL AST 18 U/L 0-32 normal Not Available [facility] [address] [place] [address], [address], 10/12/2024 10:40:12 10/12/20 24 10/12/2024 COMP. METAB OLIC PANEL ALT 19 U/L 0-33 normal Not Available [facility] [address] [place], [address], 10/12/2024 10:40:12 10/12/20 24 10/12/2024 COMP. METAB OLIC PANEL GFR 97 >= 60 normal NOT E New calcu latio n for GFR (CKD- EPI 2020) is formu lated witho ut race adjus tment facto rs at the [facility] menda tion of the Cindy Cassidy y Leatha at[facility] and Char[facility] Lorenzana [facility] of Nephr ology . This calcu latio n has not been valid ated in pregn ant women . For pedia tric patie nts refer to https ://nathalia delvalle.angelica edward.o rg/pr veda albarado s/KDO QI/gf r_cal culat orPed Not Available [facility] [address] [place] [address], [address], 10/12/2024 10:40:12 10/12/20 24 10/12/2024 HEMOG MAURICIO white blood cells 5.5 10*3/ uL 3.8-10 .8 normal Not Available [facility] [address] [place] [address], [address], 10/12/2024 10:07:26 10/12/20 24 10/12/2024 HEMOG MAURICIO red blood cells 5.03 10*6/ uL 3.80-5 .20 normal Not Available [facility] [address] [place] [address], [address], 10/12/2024 10:07:26 10/12/20 24 10/12/2024 HEMOG MAURICIO hemoglobin 13.3 g/dL 12.0-1 6.0 normal Not Available [facility] [address] [place] [address], [address], 10/12/2024 10:07:26 10/12/20 24 10/12/2024 HEMOG MAURICIO hematocrit 40.9 % 35.0-4 7.0 normal Not Available [facility] [address] [place] [address], [address], 10/12/2024 10:07:26 10/12/20 24 10/12/2024 HEMOG MAURICIO MCV 81 fL 80-100 normal Not Available [facility] [address] [place] [address], [address], 10/12/2024 10:07:26 10/12/20 24 10/12/2024 HEMOG MAURICIO MCH 27 pg 26-35 normal Not Available [facility] [address] [place] [address], [address], 10/12/2024 10:07:26 10/12/20 24 10/12/2024 HEMOG MAURICIO MCHC 33 g/dL 32-36 normal Not Available [facility] [address] [place] [address], [address], 10/12/2024 10:07:26 10/12/20 24 10/12/2024 HEMOG MAURICIO RDW 14.5 % 11.0-1 5.0 normal Not Available [facility] [address] [place] [address], [address], 10/12/2024 10:07:26 10/12/20 24 10/12/2024 HEMOG MAURICIO MPV 6.8 fL 6.2-10 .5 normal Not Available [facility] [address] [place] [address], [address], 10/12/2024 10:07:26 10/12/20 24 10/12/2024 HEMOG MAURICIO platelet count 267 10*3/ uL 150-40 0 normal Not Available [facility] [address] [place], [address], 10/12/2024 10:07:26 10/14/20 24 10/14/2024 LUTEN IZING HORMO NE lutenizing hormone 2.3 m[IU] /mL 1.0-95 .6 normal LH EXPEC YANETH VALUE S WOMEN : FOLLI CULAR PHASE 2.4-1 2.6 mIU/m L OVULA TION PHASE 14.0- 95.6 mIU/m L LUTEA L PHASE 1.0-1 1.4 mIU/m L POSTM ENOPA USE 7.7-5 8.5 mIU/m L . Not Available [facility] [address] [place], [address], 10/14/2024 08:57:14 10/14/20 24 10/14/2024 PROGE STERO [...] 58.7 - 214.0 ng/mL . Not Available [facility] [address] [place], [address], 10/14/2024 08:57:12 10/14/20 24 10/14/2024 ESTRA DIOL [...] > 30,00 0 pg/mL . Not Available [facility] [address] [place] [address], [address], 10/14/2024 08:57:11 10/16/20 24 10/16/2024 LUTEN IZING HORMO NE lutenizing hormone 16.6 m[IU] /mL 1.0-95 .6 normal LH EXPEC YANETH VALUE S WOMEN : FOLLI CULAR PHASE 2.4-1 2.6 mIU/m L OVULA TION PHASE 14.0- 95.6 mIU/m L LUTEA L PHASE 1.0-1 1.4 mIU/m L POSTM ENOPA USE 7.7-5 8.5 mIU/m L . Not Available [facility] [address] [place], [address], 10/16/2024 10:32:27 10/16/20 24 10/16/2024 PROGE STERO [...] 58.7 - 214.0 ng/mL . Not Available [facility] [address] [place], [address], 10/16/2024 10:32:26 10/16/20 24 10/16/2024 ESTRA DIOL [...] > 30,00 0 pg/mL . Not Available [facility] [address] [place], [address], 10/16/2024 10:32:25 12/02/19 25 12/02/2024 TSH TSH 1.840 u[IU] /mL 0.270- 4.200 normal Not Available [facility] [address] [place], [address], 12/03/2024 09:10:08 12/02/19 25 12/03/2024 FOLLI HONORIO [...] - 134.8 MIU/M L . Not Available [facility] [address] [place], [address], 12/03/2024 09:10:07 12/02/19 25 12/03/2024 LUTEN IZING HORMO NE lutenizing hormone 5.2 m[IU] /mL 1.0-95 .6 normal LH EXPEC YANETH VALUE S WOMEN : FOLLI CULAR PHASE 2.4-1 2.6 mIU/m L OVULA TION PHASE 14.0- 95.6 mIU/m L LUTEA L PHASE 1.0-1 1.4 mIU/m L POSTM ENOPA USE 7.7-5 8.5 mIU/m L . Not Available [facility] [address] [place], [address], 12/03/2024 09:10:07 12/02/19 25 12/03/2024 PROGE STERO [...] 58.7 - 214.0 ng/mL . Not Available [facility] [address] [place], [address], 12/03/2024 09:10:06 12/02/19 25 12/03/2024 ESTRA DIOL [...] > 30,00 0 pg/mL . Not Available [facility] [address] [place], [address], 12/03/2024 09:10:05 12/02/19 25 12/02/2024 BETA HCG, PREGN CLAUDIA beta HCG, <5 [...] 18 8099 - 58,17 6 Not Available [facility] [address] [place], [address], 12/02/2024 12:29:56 12/04/19 25 12/04/2024 LUTEN IZING HORMO NE lutenizing hormone 4.5 m[IU] /mL 1.0-95 .6 normal LH EXPEC YANETH VALUE S WOMEN : FOLLI CULAR PHASE 2.4-1 2.6 mIU/m L OVULA TION PHASE 14.0- 95.6 mIU/m L LUTEA L PHASE 1.0-1 1.4 mIU/m L POSTM ENOPA USE 7.7-5 8.5 mIU/m L . Not Available [facility] [place], [address], 12/04/2024 14:44:52 12/04/19 25 12/04/2024 PROGE STERO [...] 58.7 - 214.0 ng/mL . Not Available [facility] [address] [place], [address], 12/04/2024 14:44:51 12/04/19 25 12/04/2024 ESTRA DIOL [...] -reac tivit y to Fulve stran t, adileneul d be used to measu re estra [...] > 30,00 0 pg/mL . Not Available [facility] [address] [place], [address], 12/04/2024 14:44:50 12/07/19 25 12/07/2024 LUTEN IZING HORMO NE lutenizing hormone 2.8 m[IU] /mL 1.0-95 .6 normal LH EXPEC YANETH VALUE S WOMEN : FOLLI CULAR PHASE 2.4-1 2.6 mIU/m L OVULA TION PHASE 14.0- 95.6 mIU/m L LUTEA L PHASE 1.0-1 1.4 mIU/m L POSTM ENOPA USE 7.7-5 8.5 mIU/m L . Not Available [facility] [address] [place], [address], 12/07/2024 09:29:13 12/07/19 25 12/07/2024 PROGE STERO [...] 58.7 - 214.0 ng/mL . Not Available [facility] [address] [place], [address], 12/07/2024 09:29:12 12/07/19 25 12/07/2024 ESTRA DIOL [...] > 30,00 0 pg/mL . Not Available [facility] [address] [place], [address], 12/07/2024 09:29:11 01/05/20 25 01/05/2025 VITAM IN D 25-OH vitamin D 25-oh, total 83 NG/mL >=30 NG/mL normal Not Available [facility] [address] [place] [address], [address], 01/05/2025 16:23:30 01/05/20 25 01/05/2025 LIPID PROFI LE HDL cholesterol 49 mg/dL 50-242 low Not Available [facility] [address] [place] [address], [address], 01/05/2025 16:28:55 01/05/20 25 01/05/2025 LIPID PROFI LE triglyceride s 258 mg/dL 0-149 high TRIGL YCERI DE RANGE S WATSON L: < 150 BORDE RLINE HIGH: 150 - 199 HIGH: 200 - 499 VERY HIGH: > OR = 500 Not Available [facility] [address] [place] [address], [address], 01/05/2025 16:28:55 01/05/20 25 01/05/2025 LIPID PROFI LE cholesterol 294 mg/dL 0-199 high ANAHI STERO L (TOTA L) RANGE S KLAUS ABLE: < 200 BORDE RLINE : 200 - 239 HIGHE R RISK: > 239 Not Available [facility] [address] [place] [address], [address], 01/05/2025 16:28:55 01/05/20 25 01/05/2025 LIPID PROFI LE LDL cholesterol 193 mg/dL _(edwin c) 0-99 high LDL ANAHI STERO L RANGE S OPTIM AL: < 100 NEAR/ ABOVE OPTIM AL: 100 - 129 BORDE RLINE HIGH: 130 - 159 HIGH: 160 - 189 VERY HIGH: > OR = 190 Not Available [facility] [address] [place] [address], [address], 01/05/2025 16:28:55 02/16/20 25 02/18/2025 ANTI- MULLE BERRY, FEMAL E anti-mulleri an, female 2.73 NG/mL 0.01-2 .99 normal Not Available [facility] [address] [place] [address], [address], 02/18/2025 19:04:34 02/16/20 25 02/16/2025 PROGE STERO [...] 58.7 - 214.0 ng/mL . Not Available [facility] [address] [place] [address], [address], 02/16/2025 11:37:17 02/16/20 25 02/15/2025 TSH TSH 2.430 u[IU] /mL 0.270- 4.200 normal Not Available [facility] [address] [place], [address], 02/15/2025 15:33:02 02/16/20 25 02/15/2025 FOLLI HONORIO [...] - 134.8 MIU/M L . Not Available [facility] [address] [place], [address], 02/15/2025 15:33:01 02/16/20 25 02/15/2025 LUTEN IZING HORMO NE lutenizing hormone 5.0 m[IU] /mL 1.0-95 .6 normal LH EXPEC YANETH VALUE S WOMEN : FOLLI CULAR PHASE 2.4-1 2.6 mIU/m L OVULA TION PHASE 14.0- 95.6 mIU/m L LUTEA L PHASE 1.0-1 1.4 mIU/m L POSTM ENOPA USE 7.7-5 8.5 mIU/m L . Not Available [facility] [address] [place], [address], 02/15/2025 15:33:00 02/16/20 25 02/15/2025 ESTRA DIOL [...] show cross -reac tivit y to Fulve shern tchaim d be used to measu re [...] > 30,00 0 pg/mL . Not Available [facility] [address] [place], [address], 02/15/2025 15:32:59 02/16/20 25 02/15/2025 BETA HCG, [...] 18 8099 - 58,17 6 Not Available [facility] [address] [place] [address], [address], 02/15/2025 11:51:12 02/20/20 25 02/19/2025 HEMOG MAURICIO white blood cells 12.9 10*3/ uL 3.8-10 .8 high Not Available [facility] [address] [place] [address], [address], 02/22/2025 08:09:07 02/20/20 25 02/19/2025 HEMOG MAURICIO red blood cells 5.14 10*6/ uL 3.80-5 .20 normal Not Available [facility] [address] [place] [address], [address], 02/22/2025 08:09:07 02/20/20 25 02/19/2025 HEMOG MAURICIO hemoglobin 13.1 g/dL 12.0-1 6.0 normal Not Available [facility] [address] [place] [address], [address], 02/22/2025 08:09:07 02/20/20 25 02/19/2025 HEMOG MAURICIO hematocrit 40.9 % 35.0-4 7.0 normal Not Available [facility] [address] [place] [address], [address], 02/22/2025 08:09:07 02/20/20 25 02/19/2025 HEMOG MAURICIO MCV 80 fL 80-100 normal Not Available [facility] [address] [place] [address], [address], 02/22/2025 08:09:07 02/20/20 25 02/19/2025 HEMOG MAURICIO MCH 26 pg 26-35 normal Not Available [facility] [address] [place] [address], [address], 02/22/2025 08:09:07 02/20/20 25 02/19/2025 HEMOG MAURICIO MCHC 32 g/dL 32-36 normal Not Available [facility] [address] [place] [address], [address], 02/22/2025 08:09:07 02/20/2002/19/2025 HEMOG MAURICIO RDW 15.2 % 11.0-1 5.0 high Not Available [facility] [address] [place] [address], [address], 02/22/2025 08:09:07 02/20/20 25 02/19/2025 HEMOG MAURICIO MPV 7.0 fL 6.2-10 .5 normal Not Available [facility] [address] [place] [address], [address], 02/22/2025 08:09:07 02/20/20 25 02/19/2025 HEMOG MAURICIO platelet count 285 10*3/ uL 150-40 0 normal Not Available [facility] [address] [place] [address], [address], 02/22/2025 08:09:07 02/20/20 25 02/19/2025 LUTEN IZING HORMO NE lutenizing hormone 4.4 m[IU] /mL 1.0-95 .6 normal LH EXPEC YANETH VALUE S WOMEN : FOLLI CULAR PHASE 2.4-1 2.6 mIU/m L OVULA TION PHASE 14.0- 95.6 mIU/m L LUTEA L PHASE 1.0-1 1.4 mIU/m L POSTM ENOPA USE 7.7-5 8.5 mIU/m L . Not Available [facility] [address] [place] [address], [address], 02/19/2025 11:26:48 02/20/20 25 02/19/2025 PROGE STERO [...] 58.7 - 214.0 ng/mL . Not Available [facility] [address] [place], [address], 02/19/2025 11:26:48 02/20/20 25 02/19/2025 ESTRA DIOL [...] > 30,00 0 pg/mL . Not Available [facility] [address] [place] [address], [address], 02/19/2025 11:26:46 02/20/20 25 02/19/2025 COMPL ETE BLOOD COUNT white blood cells 12.9 10*3/ uL 3.8-10 .8 high Not Available [facility] [address] [place] [address], [address], 02/19/2025 10:56:06 02/20/20 25 02/19/2025 COMPL ETE BLOOD COUNT red blood cells 5.14 10*6/ uL 3.80-5 .20 normal Not Available [facility] [address] [place] [address], [address], 02/19/2025 10:56:06 02/20/20 25 02/19/2025 COMPL ETE BLOOD COUNT hemoglobin 13.1 g/dL 12.0-1 6.0 normal Not Available [facility] [address] [place] [address], [address], 02/19/2025 10:56:06 02/20/20 25 02/19/2025 COMPL ETE BLOOD COUNT hematocrit 40.9 % 35.0-4 7.0 normal Not Available [facility] [address] [place] [address], [address], 02/19/2025 10:56:06 02/20/20 25 02/19/2025 COMPL ETE BLOOD COUNT MCV 80 fL 80-100 normal Not Available [facility] [address] [place] [address], [address], 02/19/2025 10:56:06 02/20/20 25 02/19/2025 COMPL ETE BLOOD COUNT MCH 26 pg 26-35 normal Not Available [facility] [address] [place] [address], [address], 02/19/2025 10:56:06 02/20/20 25 02/19/2025 COMPL ETE BLOOD COUNT MCHC 32 g/dL 32-36 normal Not Available [facility] [address] [place] [address], [address], 02/19/2025 10:56:02/20/20 25 02/19/2025 COMPL ETE BLOOD COUNT RDW 15.2 % 11.0-1 5.0 high Not Available [facility] [address] [place] [address], [address], 02/19/2025 10:56:02/20/20 25 02/19/2025 COMPL ETE BLOOD COUNT MPV 7.0 fL 6.2-10 .5 normal Not Available [facility] [address] [place] [address], [address], 02/19/2025 10:56:06 02/20/20 25 02/19/2025 COMPL ETE BLOOD COUNT platelet count 285 10*3/ uL 150-40 0 normal Not Available [facility] [address] [place] [address], [address], 02/19/2025 10:56:02/20/20 25 02/19/2025 COMPL ETE BLOOD COUNT neutrophil,a bsolute 10.6 10*3/ uL 1.6-8. 4 high Not Available [facility] [address] [place] [address], [address], 02/19/2025 10:56:06 02/20/20 25 02/19/2025 COMPL ETE BLOOD COUNT lymphocyte,a bsolute 1.6 10*3/ uL 0.4-5. 1 normal Not Available [facility] [address] [place] [address], [address], 02/19/2025 10:56:06 02/20/20 25 02/19/2025 COMPL ETE BLOOD COUNT monocyte,abs olute 0.5 10*3/ uL 0.0-1. 2 normal Not Available [facility] [address] [place] [address], [address], 02/19/2025 10:56:06 02/20/20 25 02/19/2025 COMPL ETE BLOOD COUNT eosinophil,a bsolute 0.1 10*3/ uL 0.0-0. 8 normal Not Available [facility] [address] [place] [address], [address], 02/19/2025 10:56:06 02/20/20 25 02/19/2025 COMPL ETE BLOOD COUNT basophil,abs olute 0.0 10*3/ uL 0.0-0. 3 normal Not Available [facility] [address] [place] [address], [address], 02/19/2025 10:56:06 02/20/20 25 02/19/2025 COMPL ETE BLOOD COUNT % neutrophils 82.6 % 42.0-7 8.0 high Not Available [facility] [address] [place] [address], [address], 02/19/2025 10:56:06 02/20/20 25 02/19/2025 COMPL ETE BLOOD COUNT % lymphocytes 12.1 % 11.0-4 7.0 normal Not Available [facility] [address] [place] [address], [address], 02/19/2025 10:56:06 02/20/20 25 02/19/2025 COMPL ETE BLOOD COUNT % monocytes 4.0 % 0.0-11 .0 normal Not Available [facility] [address] [place] [address], [address], 02/19/2025 10:56:06 02/20/20 25 02/19/2025 COMPL ETE BLOOD COUNT % eosinophils 1.0 % 0.0-7. 0 normal Not Available [facility] [address] [place] [address], [address], 02/19/2025 10:56:06 02/20/20 25 02/19/2025 COMPL ETE BLOOD COUNT % basophils 0.3 % 0.0-3. 0 normal Not Available [facility] [address] [place] [address], [address], 02/19/2025 10:56:06 02/20/20 25 02/19/2025 COMPL ETE BLOOD COUNT nucleated red cells 0.0 % 0.0-0. 9 normal Not Available [facility] [address] [place], [address], 02/19/2025 10:56:06 02/20/20 25 02/19/2025 COMPL ETE BLOOD COUNT nucleated RBCs, absolute 0.00 10*3/ uL not estab. normal Not Available [facility] [address] [place] [address], [address], 02/19/2025 10:56:06 02/23/20 25 02/22/2025 LUTEN IZING HORMO NE lutenizing hormone 1.8 m[IU] /mL 1.0-95 .6 normal LH EXPEC YANETH VALUE S WOMEN : FOLLI CULAR PHASE 2.4-1 2.6 mIU/m L OVULA TION PHASE 14.0- 95.6 mIU/m L LUTEA L PHASE 1.0-1 1.4 mIU/m L POSTM ENOPA USE 7.7-5 8.5 mIU/m L . Not Available [facility] [place], [address], 02/22/2025 10:29:54 02/23/20 25 02/22/2025 PROGE STERO [...] 58.7 - 214.0 ng/mL . Not Available [facility] [address] [place], [address], 02/22/2025 10:29:54 02/23/20 25 02/22/2025 ESTRA DIOL [...] > 30,00 0 pg/mL . Not Available [facility] [address] [place], [address], 02/22/2025 10:29:53 02/25/20 25 02/24/2025 LUTEN IZING HORMO NE lutenizing hormone 12.4 m[IU] /mL 1.0-95 .6 normal LH EXPEC YANETH VALUE S WOMEN : FOLLI CULAR PHASE 2.4-1 2.6 mIU/m L OVULA TION PHASE 14.0- 95.6 mIU/m L LUTEA L PHASE 1.0-1 1.4 mIU/m L POSTM ENOPA USE 7.7-5 8.5 mIU/m L . Not Available [facility] [address] [place], [address], 02/24/2025 10:41:03 02/25/20 25 02/24/2025 PROGE STERO [...] 58.7 - 214.0 ng/mL . Not Available [facility] [address] [place], [address], 02/24/2025 10:41:03 02/25/20 25 02/24/2025 ESTRA DIOL estradiol 702.0 pg/mL 0.0-39 8.0 high Refer ence range is based on non-p regna nt women . NOTE: Due to the risk of cross -reac tivit y, the Avelina Estra diol assay used by our labor atoralta olmstead not be order ed when monit oring estra diol level s in patie nts being treat ed with Esau [place]. An alter colin metho d such [...] > 30,00 0 pg/mL . Not Available [facility] [address] [place], [address], 02/24/2025 10:41:01 02/27/20 25 02/26/2025 PROGE STERO [...] 58.7 - 214.0 ng/mL . Not Available [facility] [address] [place], [address], 02/26/2025 11:00:07 02/27/20 25 02/26/2025 LUTEN IZING HORMO NE lutenizing hormone 1.5 m[IU] /mL 1.0-95 .6 normal LH EXPEC YANETH VALUE S WOMEN : FOLLI CULAR PHASE 2.4-1 2.6 mIU/m L OVULA TION PHASE 14.0- 95.6 mIU/m L LUTEA L PHASE 1.0-1 1.4 mIU/m L POSTM ENOPA USE 7.7-5 8.5 mIU/m L . Not Available [facility] [address] [place], [address], 02/26/2025 10:42:00 02/27/20 25 02/26/2025 ESTRA DIOL [...] > 30,00 0 pg/mL . Not Available [facility] [address] [place], [address], 02/26/2025 10:42:00 03/11/20 25 03/11/2025 PROGE STERO [...] 58.7 - 214.0 ng/mL . Not Available [facility] [address] [place], [address], 03/11/2025 11:10:20 03/11/20 25 03/11/2025 ESTRA DIOL [...] > 30,00 0 pg/mL . Not Available [facility] [address] [facility] [place], [address], 03/11/2025 11:10:19 03/17/20 25 03/18/2025 PROGE STERO [...] 58.7 - 214.0 ng/mL . Not Available [facility] [address] [place] [address], [address], 03/18/2025 13:13:26 03/17/20 25 03/17/2025 BETA HCG, [...] 18 8099 - 58,17 6 Not Available [facility] [address] [place] [address], [address], 03/17/2025 10:34:58 03/26/20 25 03/26/2025 T4,FR EE T4,free 2.27 NG/dL 0.93-1 .70 high Not Available [facility] [address] [place] [address], [address], 03/26/2025 11:39:57 03/26/20 25 03/26/2025 TSH TSH 0.693 u[IU] /mL 0.270- 4.200 normal Not Available [facility] [address] [place] [address], [address], 03/26/2025 11:39:56 03/26/20 25 03/26/2025 FOLLI HONORIO [...] - 134.8 MIU/M L . Not Available [facility] [address] [place] [address], [address], 03/26/2025 11:39:55 03/26/20 25 03/26/2025 LUTEN IZING HORMO NE lutenizing hormone 5.8 m[IU] /mL 1.0-95 .6 normal LH EXPEC YANETH VALUE S WOMEN : FOLLI CULAR PHASE 2.4-1 2.6 mIU/m L OVULA TION PHASE 14.0- 95.6 mIU/m L LUTEA L PHASE 1.0-1 1.4 mIU/m L POSTM ENOPA USE 7.7-5 8.5 mIU/m L . Not Available [facility] [address] [place] [address], [address], 03/26/2025 11:39:55 03/26/2003/26/2025 PROGE STERO NE, SERUM [...] 58.7 - 214.0 ng/mL . Not Available [facility] [address] [place], [address], 03/26/2025 11:39:53 03/26/2003/26/2025 ESTRA DIOL estradiol 38.2 [...] > 30,00 0 pg/mL . Not Available [facility] [place], [address], 03/26/2025 11:39:52 03/26/20 25 03/26/2025 BETA HCG, [...] 18 8099 - 58,17 6 Not Available [facility] [address] [place], [address], 03/26/2025 11:37:14 04/02/20 25 04/02/2025 LUTEN IZING HORMO NE lutenizing hormone 11.9 m[IU] /mL 1.0-95 .6 normal LH EXPEC YANETH VALUE S WOMEN : FOLLI CULAR PHASE 2.4-1 2.6 mIU/m L OVULA TION PHASE 14.0- 95.6 mIU/m L LUTEA L PHASE 1.0-1 1.4 mIU/m L POSTM ENOPA USE 7.7-5 8.5 mIU/m L . Not Available [facility] [address] [place], [address], 04/02/2025 12:03:29 04/02/20 25 04/02/2025 PROGE STERO [...] 58.7 - 214.0 ng/mL . Not Available [facility] [address] [place], [address], 04/02/2025 12:03:28 04/02/20 25 04/02/2025 ESTRA DIOL [...] > 30,00 0 pg/mL . Not Available [facility] [address] [place], [address], 04/02/2025 12:03:27 04/14/2004/14/2025 PROGE STERO NE, SERUM [...] 58.7 - 214.0 ng/mL . Not Available [facility] [address] [place], [address], 04/14/2025 11:18:50 04/14/2004/14/2025 ESTRA DIOL estradiol 142.0 pg/mL 0.0-39 8.0 normal Refer ence range is based on non-p regna nt women . NOTE: Due to the risk of cross -reac tivit y, the Avelina Estra diol assay used by our labor damaris headul d not be order ed when monit oring estra diol level s in patie nts being treat ed with Fulve shern t. An alter colin metho d such as LC/MS , which is not expec yaneth to show cross -reac tivit y to Esau sloane tchaim d be used to measu re [...] > 30,00 0 pg/mL . Not Available [facility] [address] [place], [address], 04/14/2025 11:18:49 04/19/20 25 04/19/2025 BETA HCG, [...] 18 8099 - 58,17 6 Not Available [facility] [address] [place], [address], 04/19/2025 10:55:07 04/19/20 25 04/19/2025 PROGE STERO NE, SERUM /PLAS MA progesterone [...] 58.7 - 214.0 ng/mL . Not Available [facility] [address] [place] [address], [phone], 04/19/2025 10:45:30 04/19/20 25 04/19/2025 HEMOG MAURICIO white blood cells 19.9 10*3/ uL 3.8-10 .8 high Not Available [facility] [address] [place] [address], [id number], 04/19/2025 10:07:31 04/19/2004/19/2025 HEMOG MAURICIO red blood cells 4.79 10*6/ uL 3.80-5 .20 normal Not Available [facility] [address] [place] [address], [address], 04/19/2025 10:07:31 04/19/2004/19/2025 HEMOG MAURICIO hemoglobin 12.3 g/dL 12.0-1 6.0 normal Not Available [facility] [address] [place] [address], [address], 04/19/2025 10:07:31 04/19/2004/19/2025 HEMOG MAURICIO hematocrit 37.9 % 35.0-4 7.0 normal Not Available [facility] [address] [place] [address], [address], 04/19/2025 10:07:31 04/19/2004/19/2025 HEMOG MAURICIO MCV 79 fL 80-100 low Not Available [facility] [address] [place] [address], [address], 04/19/2025 10:07:31 04/19/2004/19/2025 HEMOG MAURICIO MCH 26 pg 26-35 normal Not Available [facility] [address] [place] [address], [address], 04/19/2025 10:07:31 04/19/2004/19/2025 HEMOG MAURICIO MCHC 33 g/dL 32-36 normal Not Available [facility] [address] [place] [address], [address], 04/19/2025 10:07:31 04/19/2004/19/2025 HEMOG MAURICIO RDW 16.4 % 11.0-1 5.0 high Not Available [facility] [address] [place] [address], [address], 04/19/2025 10:07:31 04/19/20 25 04/19/2025 HEMOG MAURICIO MPV 6.4 fL 6.2-10 .5 normal Not Available [facility] [address] [place] [address], [address], 04/19/2025 10:07:31 04/19/20 25 04/19/2025 HEMOG MAURICIO platelet count 350 10*3/ uL 150-40 0 normal Not Available [facility] [address] [place] [address], [address], 04/19/2025 10:07:31 04/21/2004/21/2025 TSH TSH 4.830 u[IU] /mL 0.270- 4.200 high Not Available [facility] [address] [place] [address], [address], 04/21/2025 11:23:04 04/21/20 25 04/21/2025 PROGE STERO [...] 58.7 - 214.0 ng/mL . Not Available [facility] [address] [place], [address], 04/21/2025 11:23:03 04/21/2004/21/2025 ESTRA DIOL estradiol 150.0 [...] > 30,00 0 pg/mL . Not Available [facility] [address] [place], [address], 04/21/2025 11:23:01 04/21/20 25 04/21/2025 BETA HCG, PREGN CLAUDIA beta HCG, 281 [...] 18 8099 - 58,17 6 Not Available [facility] [address] [place], [address], 04/21/2025 11:21:58 04/28/20 25 04/28/2025 PROGE STERO [...] 58.7 - 214.0 ng/mL . Not Available [facility] [address] [place], [address], 04/28/2025 11:51:04 04/28/2004/28/2025 ESTRA DIOL estradiol 314.0 pg/mL 0.0-39 8.0 [...] to show cross -reac tivit y to Brendanve sloane t, chaim d be used to measu [...] > 30,00 0 pg/mL . Not Available [facility] [address] [place], [address], 04/28/2025 11:51:03 04/28/20 25 04/28/2025 BETA HCG, [...] 18 8099 - 58,17 6 Not Available [facility] [address] [place], [address], 04/28/2025 11:47:22 05/05/20 25 05/05/2025 PROGE STERO NE, SERUM /PLAS MA progesterone , serum/plasma 57.50 NG/mL 0.00-2 3.90 high Refer ence range [...] 58.7 - 214.0 ng/mL . Not Available [facility] [address] [place], [address], 05/05/2025 11:44:19 05/05/20 25 05/05/2025 ESTRA DIOL estradiol 225.0 pg/mL 0.0-39 8.0 normal Refer ence range [...] > 30,00 0 pg/mL . Not Available [facility] [address] [place], [address], 05/05/2025 11:44:17 05/05/20 25 05/05/2025 VITAM IN D 25-OH vitamin D 25-oh, total 110 NG/mL >=30 NG/mL normal Not Available [facility] [address] [place], [address], 05/05/2025 11:39:15 05/05/20 25 05/05/2025 BETA HCG, PREGN CLAUDIA beta HCG, 102 m[IU] /mL 0-5 high EXPEC YANETH HCG [...] 18 8099 - 58,17 6 Not Available [facility] [address] [place] [address], [address], 05/05/2025 11:18:11 05/05/20 25 05/05/2025 COMPL ETE BLOOD COUNT white blood cells 19.8 10*3/ uL 3.8-10 .8 high Not Available [facility] [address] [place] [address], [address], 05/05/2025 10:40:59 05/05/20 25 05/05/2025 COMPL ETE BLOOD COUNT red blood cells 4.89 10*6/ uL 3.80-5 .20 normal Not Available [facility] [address] [place] [address], [address], 05/05/2025 10:40:59 05/05/20 25 05/05/2025 COMPL ETE BLOOD COUNT hemoglobin 12.9 g/dL 12.0-1 6.0 normal Not Available [facility] [address] [place] [address], [address], 05/05/2025 10:40:59 05/05/20 25 05/05/2025 COMPL ETE BLOOD COUNT hematocrit 38.5 % 35.0-4 7.0 normal Not Available [facility] [address] [place] [address], [address], 05/05/2025 10:40:59 05/05/20 25 05/05/2025 COMPL ETE BLOOD COUNT MCV 79 fL 80-100 low Not Available [facility] [address] [place] [address], [address], 05/05/2025 10:40:59 05/05/20 25 05/05/2025 COMPL ETE BLOOD COUNT MCH 26 pg 26-35 normal Not Available [facility] [address] [place] [address], [address], 05/05/2025 10:40:59 05/05/20 25 05/05/2025 COMPL ETE BLOOD COUNT MCHC 33 g/dL 32-36 normal Not Available [facility] [address] [place] [address], [address], 05/05/2025 10:40:59 05/05/20 25 05/05/2025 COMPL ETE BLOOD COUNT RDW 17.5 % 11.0-1 5.0 high Not Available [facility] [address] [place] [address], [address], 05/05/2025 10:40:59 05/05/20 25 05/05/2025 COMPL ETE BLOOD COUNT MPV 6.3 fL 6.2-10 .5 normal Not Available [facility] [address] [place] [address], [address], 05/05/2025 10:40:59 05/05/20 25 05/05/2025 COMPL ETE BLOOD COUNT platelet count 267 10*3/ uL 150-40 0 normal Not Available [facility] [address] [place] [address], [address], 05/05/2025 10:40:59 05/05/20 25 05/05/2025 COMPL ETE BLOOD COUNT neutrophil,a bsolute 16.8 10*3/ uL 1.6-8. 4 high Not Available [facility] [address] [place] [address], [address], 05/05/2025 10:40:59 05/05/20 25 05/05/2025 COMPL ETE BLOOD COUNT lymphocyte,a bsolute 1.9 10*3/ uL 0.4-5. 1 normal Not Available [facility] [address] [place] [address], [address], 05/05/2025 10:40:59 05/05/20 25 05/05/2025 COMPL ETE BLOOD COUNT monocyte,abs olute 0.8 10*3/ uL 0.0-1. 2 normal Not Available [facility] [address] [place] [address], [address], 05/05/2025 10:40:59 05/05/20 25 05/05/2025 COMPL ETE BLOOD COUNT eosinophil,a bsolute 0.2 10*3/ uL 0.0-0. 8 normal Not Available [facility] [address] [place] [address], [address], 05/05/2025 10:40:59 05/05/20 25 05/05/2025 COMPL ETE BLOOD COUNT basophil,abs olute 0.1 10*3/ uL 0.0-0. 3 normal Not Available [facility] [address] [place] [address], [address], 05/05/2025 10:40:59 05/05/20 25 05/05/2025 COMPL ETE BLOOD COUNT % neutrophils 84.9 % 42.0-7 8.0 high Not Available [facility] [address] [place] [address], [address], 05/05/2025 10:40:59 05/05/20 25 05/05/2025 COMPL ETE BLOOD COUNT % lymphocytes 9.4 % 11.0-4 7.0 low Not Available [facility] [address] [place] [address], [address], 05/05/2025 10:40:59 05/05/20 25 05/05/2025 COMPL ETE BLOOD COUNT % monocytes 4.2 % 0.0-11 .0 normal Not Available [facility] [address] [place] [address], [address], 05/05/2025 10:40:59 05/05/20 25 05/05/2025 COMPL ETE BLOOD COUNT % eosinophils 1.2 % 0.0-7. 0 normal Not Available [facility] [address] [place] [address], [address], 05/05/2025 10:40:59 05/05/20 25 05/05/2025 COMPL ETE BLOOD COUNT % basophils 0.3 % 0.0-3. 0 normal Not Available [facility] [address] [place] [address], [address], 05/05/2025 10:40:59 05/05/20 25 05/05/2025 COMPL ETE BLOOD COUNT nucleated red cells 0.1 % 0.0-0. 9 normal Not Available [facility] [address] [place] [address], [address], 05/05/2025 10:40:59 05/05/20 25 05/05/2025 COMPL ETE BLOOD COUNT nucleated RBCs, absolute 0.02 10*3/ uL not estab. normal Not Available [facility] [address] [place] [address], [address], 05/05/2025 10:40:59 11/19/19 24 11/18/2023 US, obste tric, trans vagin al No observ ation record ed. [email or web address] [facility] [address], [address], 11/19/2023 18:50:41 02/04/20 24 02/04/2024 MAMMO , scree jaime, tomos ynthe sis, bilat eral, w/ CAD [address] [place] [address] Rik wellington Name: JU wellington : [id number] Age: 43 years Patiaracely t 43 Orderi ng Provid er: SOBIA CONCEPCION [...] was read with the assist ance of [employer] er Aided Detect ion (CAD) softwa re. COMPAR MICHAEL: None. These are the patiaracely wellington's first mammog reynaldo. 2022 FINDIN GS: [...] were mailed or given to the rik t. Interp reted By: Pillo Wilson MD Electr onical ly Signed By: Pillo Wilson MD on 024 1:31 PM [facility] [address], [place], [address], 02/04/2024 18:52:14 03/19/20 24 03/18/2024 imagi ng inter preta tion No observ ation record ed. [email or web address] [facility] [address], [place], [address], 03/19/2024 10:09:13 03/24/20 24 03/24/2024 US, obste tric, 1st trime ster No observ ation record ed. [email or web address] [facility] [address], [place], [address], 03/25/2024 09:16:50 03/27/20 24 03/27/2024 imagi ng inter preta tion No observ ation record ed. [email or web address] Not Available 2023 09:42:02 08/19/20 24 08/19/2024 US, pelvi s No observ ation record ed. [address], [place], [place], [address], 08/20/2024 10:04:39 08/24/2008/24/2024 imagi ng inter preta tion No observ ation record ed. [email or web address] [facility] [address], [place], [place], [address], 08/25/2024 08:14:50 10/12/20 24 10/12/2024 imagi ng inter preta tion No observ ation record ed. [email or web address] [facility] [address], [place], [place], [address], 10/13/2024 08:02:20 12/02/19 25 12/02/2024 US, abdom en No observ ation record ed. [address], [place], [place], [address], 12/02/2024 13:29:13 02/16/20 25 02/15/2025 imagi ng inter preta tion No observ ation record ed. [email or web address] [facility] [address], [place], [address], 02/15/2025 12:06:32 02/20/20 25 02/19/2025 imagi ng inter preta tion No observ ation record ed. [email or web address] Not Available 2024 14:06:39 02/23/20 25 02/22/2025 imagi ng inter preta tion No observ ation record ed. [email or web address] Not Available 02/22 13:36:08 02/25/20 25 02/24/2025 imagi ng inter preta tion No observ ation record ed. [email or web address] [facility] [address], [place], [address], 03/01/2025 15:30:54 02/27/20 25 02/26/2025 imagi ng inter preta tion No observ ation record ed. [email or web address] [facility] [address], [place], [address], 03/01/2025 15:30:14 03/26/20 25 03/26/2025 imagi ng inter preta tion No observ ation record ed. [email or web address] [facility] [address], [place], [address], 03/29/2025 08:12:00 04/02/20 25 04/02/2025 imagi ng inter preta tion No observ ation record ed. [email or web address] [facility] [address], [place], [address], 04/02/2025 10:58:56 04/28/20 25 04/28/2025 imagi ng inter preta tion No observ ation record ed. [email or web address] [facility] [address], [place], [address], 04/29/2025 09:07:53 05/05/20 25 05/05/2025 imagi ng inter preta tion No observ ation record ed. [email or web address] Not Available 2024 09:16:04 05/06/20 25 05/05/2025 imagi ng inter preta tion No observ ation record ed. [email or web address] [facility] [address], [place], [address], 05/06/2025 12:09:53 Result Notes Documentation Provider Name and Address Organization Details Recorded Time Mammo, Screening, Tomosynthesis, Bilateral, W/ Cad : [address] [address] Patient Name: JUDIT DOMINGUEZ Patient : 1980 Age: 43 years Patient Ordering Provider: SOBIA CONCEPCION EXAM DATE: 02/04/2024 EXAM: MG SCREENING LIZETT MAMMOGRAM INDICATION: Routine screening. PROCEDURE: Multislice imaging of both breasts was performed in standard projections using [employer] tomosynthesis equipment (3D mammography). 2D images [...] By: Pillo Wilson MD A CONCEPCION MD [address] [place] [address], [address], [facility] 02/04/2024 13:44:00 Problems Name Problem SNOMED Code Status Onset Date Resolution Date Notes Provider Name and Address Organization Details Recorded Time Hypothyro idism 86597515 Active 2019 SOBIA CONCEPCION MD [address] [place] [address], [address], [facility] 0 12:26:59 Uses oral contracep tion 3763759 Completed 201912/27/2021 SOBIA CONCEPCION MD [address] [place] [address], [address], [facility] 2 10:33:23 Vitamin D deficienc y 19278580 Active 2019 SOBIA CONCEPCION MD [address] [place] [address], [address], [facility] 0 12:27:01 Generaliz ed anxiety disorder 60892045 Active 2019 SOBIA CONCEPCION MD [address] [place] [address], [address], [facility] 0 12:53:10 Snoring 13666220 Active 2019 SOBIA CONCEPCION MD [address] [place] [address], [address], [facility] 0 12:53:12 Multinodu lar goiter 353923569 Active 2019 SOBIA CONCEPCION MD [address] [place] [address], [address], [facility] 0 12:53:13 Atypical squamous cells of undetermi johnny significa nce on cervical Papanicol aou smear 559676053 Active 11/2021-c olpo pending 01/2022 SOBIA CONCEPCION MD [address] [place] [address], [address], [facility] 2 10:33:21 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, high risk on cervical specimen 445001221 Active 2020 SOBIA CONCEPCION MD [address] [place] [address], [address], [facility] 1 15:23:17 Obstructi ve sleep apnea syndrome 94304840 Active 2020 SOBIA CONCEPCION MD [address] [place] [address], [address], [facility] 1 15:23:51 Complete miscarria ge 723193260 Active 2021 SOBIA CONCEPCION MD [address] [place] [address], [address], [facility] 2 10:33:02 Mixed hyperlipi demia 393241314 Active 2021 SOBIA CONCEPCION MD [address] [place] [address], [address], [facility] 2 15:37:10 Female hirsutism 04683795 Active 2022 SOBIA CONCEPCION MD [address] [place] [address], [address], [facility] - [facility] 3 09:24:02 Problem Notes Documentation Provider Name and Address Organization Details Recorded Time Endocrinology Consult Note : [facility] [address] [place] [id number], Natasha (id #[id number], : 1980) [facility] [address] [place] [address] Date: 4RE: Judit Dominguez, : 1980, PT ID #[id number] Neace DO / [facility], [facility], I would like to thank you for referring Judit Dominguez to our practice for consultation and evaluation. I have enclosed a copy of the office evaluation for your records. Sincerely, Electronically Signed by: DANIEL ELIZALDE MDEncounter Reason/DateNone recorded 12/16/2023 - 02:30PM - ENDOCRINOLOGY SB History of Present [id number] female patient with a past medical history [...] after levothyroxin therapy. 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 [facility] on 06/11/2024 at 11:30 AM ALEC DIOP DO [address] [place] [address], [address], [facility] 12/17/2023 12:40:11 Endocrinology Note : [facility] [address] [facility] [id number], Natasha (id #[id number], : 1980) [facility] [address] [place] [address] Date: 4RE: Judit Dominguez, : 1980, PT ID #[id number] Neace DO / [facility], [facility], I would like to thank you for referring Judit Dominguez to our practice for consultation and evaluation. I have enclosed a copy of the office evaluation for your records. Sincerely, Electronically Signed by: DANIEL ELIZALDE MDEncounter Reason/DateNone recorded 12/16/2023 - 02:30PM - ENDOCRINOLOGY SB History of Present [id number]-lws female patient with a past medical history [...] after levothyroxin therapy. 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 [facility] on 06/11/2024 at 11:30 AM [place] [facility] 12/17/2023 10:19:30 Procedures Surgical History Date Name Laterality Status Provider Name and Address Organization Details Recorded Time 2 Suture/Staple removal completed SOBIA CONCEPCION MD [address] [place], [address], [facility] 04/19/2022 15:34:57 2 Colposcopy; Cervical (Bx/ECC) completed ALEC DIOP DO [address] [place], [address], [facility] 02/08/2022 12:36:33 2 Date of Last Pap Smear completed [facility] 12/20/2022 14:14:56 1 Colposcopy; Cervical (Bx/ECC) completed BLANCA MCCARTHY DO [address] [place], [address], [facility] 12/15/2020 11:37:18 1 Colposcopy completed [facility] 12/12/2021 10:34:49 Imaging Results None recorded. Procedure [...] Not Available medroxypro gesterone 10 mg tablet TAKE 1 Tablet BY MOUTH DAILY DIRECTED active Not Available Not Available No t Available levothyrox ine 175 mcg tablet Take 1 tablet every day by oral route. 12/16 completed Not Available Not Available Not Available prednisone 10 mg tablet 11/01 completed Not Available Not Available Not Available doxycyclin e hyclate 100 mg capsule TAKE ONE CAPSULE BY MOUTH TWICE DAILY -- FINISH ALL MEDICINE -- active Not Available Not Available No t Available cefuroxime axetil 250 mg tablet Take 1 tablet every 12 hours by oral route with meals for 7 days. 11/24 completed Not Available Not Available Not Available atorvastat in 10 mg tablet TAKE [...] TWICE DAILY DIRECTED --TAKE WITH FOOD-- active Not Available Not Available No t Available Pregnyl 10,000 unit intramuscu lar solution INJECT 10,000 UNITS SUBCUTAN EOUSLY FOR ONE DOSE DIRECTED active Not Available Not Available No t Available ciprofloxa tip 500 mg tablet TAKE [...] progestero ne 50 mg/mL intramuscu lar oil INJECT 75MG (1.5ML) INTRAMUS CULARLY ONCE DAILY DIRECTED active Not Available Not Available No t Available citalopram 20 mg tablet TAKE ONE TABLET BY MOUTH EVERY DAY 01/05 completed no longer taking med Not Available Not Available Not Available Synthroid 25 mcg tablet Take 1 tablet every day by oral route for 30 days. 2024 active Not Available Not Available Not Avai lable Sure Comfort Insulin Syringe 1/2 mL 28 gauge x 1/2 USE WITH NIVESTYM active Not Available Not Available No t Available benzonatat e 100 mg capsule TAKE 1 CAPSULE BY MOUTH THREE TIMES DAILY NEEDED, SWALLOW WHOLE DO NOT CHEW active Not Available Not Available No t Available levothyrox ine 50 mcg tablet TAKE ONE TABLET BY MOUTH DAILY 06/26 completed Not Available Not Available Not Available cephalexin 500 mg capsule TAKE 1 [...] Available progestero ne micronized 200 mg capsule INSERT 1 CAPSULE VAGINALL Y 3 TIMES A DAY DIRECTED active Not Available Not Available No t Available estradiol 2 mg tablet TAKE ONE TABLET BY MOUTH TWICE DAILY active Not Available Not Available No t Available BD Regular Bevel Myton 22 gauge x 1 1/2 For use with Progeste perla in Oil active Not Available Not Available No t Available ergocalcif sully (vitamin D2) 1,250 mcg (50,000 unit) capsule TAKE ONE CAPSULE BY MOUTH ONCE WEEKLY active Not Available Not Available No t Available letrozole 2.5 mg tablet TAKE 4 TABLETS BY MOUTH ONCE DAILY DIRECTED active Not Available Not Available No t Available methylpred nisolone 4 mg tablets in a dose pack FOLLOW PACKAGE DIRECTIO NS 01/05 completed Not Available Not Available Not Available BD Luer-Rocío Syringe 3 mL 18 x 1 1/2 FOR DAILY USE WITH PROGESTE PERLA IN OIL active Not Available Not Available No t [...] mg tablet,ext ended release 24 hr TAKE FOUR TABLETS BY MOUTH EVERY DAY WITH FOOD active Not Available Not Available No t Available sertraline 50 mg tablet TAKE ONE TABLET BY MOUTH DAILY active Not Available Not Available No t Available tacrolimus 1 mg capsule, immediate- release TAKE ONE CAPSULE BY MOUTH THREE TIMES DAILY DIRECTED active Not Available Not Available No t Available amoxicilli n 500 mg-potassi um clavulanat e 125 mg tablet TAKE 1 TABLET BY MOUTH EVERY 12 HOURS FOR 10 DAYS 01/05 completed no longer taking med Not Available Not Available Not Available enoxaparin 30 mg/0.3 mL subcutaneo us syringe INJECT 1 SYRINGE SUBCUTAN EOUSLY EVERY DAY DIRECTED active Not Available Not Available No t Available Nasal Decongesta nt (pseudoeph edrine) 120 mg tablet,ext ended release TAKE ONE TABLET BY MOUTH EVERY TWELVE HOURS NEEDED FOR nasal congesti on active Not Available Not Available No t Available ganirelix 250 mcg/0.5 mL subcutaneo us syringe INJECT 250MCG SUBCUTAN EOUSLY ONCE EACH MORNING DIRECTED active Not Available Not Available No [...] AQ 300 unit/0.36 mL subcutaneo us cartridge INJECT 37.5 iu SUBCUTAN EOUSLY in the evening DIRECTED active Not Available Not Available No t Available chlorhexid ine gluconate 0.12 % mouthwash 10/16 completed Not Available Not Available Not Available folic acid active Not Available Not Av ailable Not Available Synthroid 11/13 completed 75 mg Not Available Not Available Not Available active Not Available Not Avai lable Not Available multivitam in Daily 10/16 completed Not Available Not Available Not Available guaifenesi n ER 600 mg tablet, extended release 12 hr TAKE TWO TABLETS BY MOUTH TWICE DAILY active Not Available Not Available No t Available Tri-Lo-Mar johnnie 0.18 mg/0.215 mg/0.25 mg-0.025 mg tablet 10/25 completed 020 - been off x2m Not Available Not Available Not Available Omegaven 10 % intravenou s emulsion Infuse 10 GRAMS intraven ously per protocol active Not Available Not Available No t Available Nivestym 300 mcg/mL injection solution INJECT 60 MCG (0.2ML) SUBCUTAN EOUSLY ONCE DAILY DIRECTED active Not Available Not Available No t Available Fluarix Quad (PF) 60 mcg (15 mcg x 4)/0.5 mL IM syringe 09/27 completed Not Available Not Available Not Available Carepoint Luer Lock Syringe with needle 3 mL 25 x 5/8 USE WITH PREGNYL HCG active Not Available Not Available No t Available BinaxNOW COVID-19 Ag Self Test kit TEST DIRECTED TODAY 11/01 completed Not Available Not Available Not Available Vitals Date Recorded Body height Body mass index (BMI) Body weight Heart rate Systolic blood pressure Diastolic blood pressure Provider Name and Address Organization Details Last Updated DateTime 4 157.48 cm 45.7 kg/m2 511890. 09 g 80 /min 125 mm[Hg] 75 mm[Hg] [facility] 4 14:55:06 Date Recorded Body height Body mass index (BMI) Body weight Heart rate Oxygen saturation Oxygen saturation in Arterial blood by Pulse oximetry Systolic blood pressure Diastolic blood pressure Provider Name and Address Organization Details Last Updated DateTime 4 157.48 cm 46 kg/m2 171997. 78 g 86 /min 100 % 100 % 118 mm[Hg] 82 mm[Hg] Maite Yun [facility] 4 13:59:23 Date Recorded Body height Body mass index (BMI) Body weight Body temperature Heart rate Oxygen saturation Oxygen saturation in Arterial blood by Pulse oximetry Respiratory rate Systolic blood pressure Diastolic blood pressure Provider Name and Address Organization Details Last Updated DateTime 5 157.48 cm 47.4 kg/m2 133674. 42 g 96.9 [degF] 106 /min 100 % 100 % 18 /min 132 mm[Hg] 90 mm[Hg] Carlie Calabrese [facility] 5 14:08:00 Date Recorded Body height Body mass index (BMI) Body weight Systolic blood pressure Diastolic blood pressure Provider Name and Address Organization Details Last Updated DateTime 01/14/2025 157.48 cm 46.6 kg/m2 689861.0 5 g 132 mm[Hg] 80 mm[Hg] Kiya [facility] 5 14:35:05 Date Recorded Body height Body mass index (BMI) Body weight Heart rate Systolic blood pressure Diastolic blood pressure Provider Name and Address Organization Details Last Updated DateTime 4 157.48 cm 45.2 kg/m2 260771. 32 g 91 /min 118 mm[Hg] 74 mm[Hg] Kiya [facility] 4 13:53:51 Social History Question Answer Notes LastModified by Organizat ion Details LastModified Time Tobacco Smoking Status [facility] 12:22:03 What Is Your Level [...] influenza, unspecified formulation 4 completed Maite Yun [facility] 11/03/2024 14:11:20 HPV9 1 completed Radha Carlson [facility] 12/15/2020 11:54:27 HPV9 1 completed Mary Marshall [facility] 01/11/2021 11:13:47 HPV9 1 completed Mary Marshall [facility] 05/15/2021 11:31:03 Influenza, recombinant, quadrivalent, PF 1 completed Saturnino Sanchez [facility] 08/14/2021 15:48:46 Tdap 2 completed Emmie Montemayor [facility] 12/27/2021 11:07:56 Influenza, split virus, quadrivalent, preservative 0 completed Octavia Díaz [facility] 12/31/2022 09:03:59 COVID-19, mRNA, LNP-S, PF, 100 mcg/0.5mL dose or 50 mcg/0.25mL dose 1 completed Octavia Díaz [facility] 12/31/2022 09:03:59 COVID-19, mRNA, LNP-S, PF, 100 mcg/0.5mL dose or 50 mcg/0.25mL dose 1 completed Octavia Díaz [facility] 12/31/2022 09:03:59 Influenza, split virus, quadrivalent, PF 4 completed Maite Yun [facility] 01/02/2024 15:15:18 SARS-COV-2 (COVID-19) vaccine, UNSPECIFIED 1 completed Octavia Díaz [facility] 12/31/2022 09:03:59 tetanus toxoid, unspecified formulation 2 completed Octavia Díaz [facility] 12/31/2022 09:03:59 Influenza, injectable,malika valent, preservative free, pediatric 9 completed Mary Marshall [facility] 12/21/2022 13:39:39 Influenza, recombinant, quadrivalent, PF 2 completed Mary Marshall [facility] 12/21/2022 13:39:39 COVID-19, mRNA, LNP-S, PF, 30 mcg/0.3 mL dose 1 completed Mary Marshall [facility] 12/21/2022 13:39:39 COVID-19, mRNA, LNP-S, PF, 30 mcg/0.3 mL dose 1 completed Mary Marshall [facility] 12/21/2022 13:39:39 Tdap 0 completed Mary Marshall [facility] 12/21/2022 13:39:39 Td (adult) 2 completed Mary Joanna [facility] 12/21/2022 13:39:39 Past Encounters Encounter ID Performer Location Encounter Start Date Encounter Closed Date Diagnosis/Indication Diagnosis SNOMED-CT Code Diagnosis ICD10 Code Diagnosis Note [id number] SOBIA CONCEPCION MD [facility] [address] [place] [address] 09/27/2020 12:05:33 09/27/2020 12:56:40 Hypothyroidism 42789556 E03.9 needs to restart her levothyrox ine 50 mcg recheck in 2 months. Vitamin D deficiency 347 23829 E55.9 restart vit d and recheck in 2 months Adult heal th examination 785909552 Z00.00 pap 2 years ago-normal mammogram due at age 42 Multinodular goiter 2375 46031 E04.2 history of maybe? Snoring 61555256 R06.83 refer for sleep study Generalize d anxiety disorder 07478726 F41.1 i think these are panic attacks [...] neg will send in. f/u 2 months [id number] LEONEL OLIVARES PA-C PULMON[facility] [address] [place] [address], [place] [id number] 10/25/2020 09:30:30 10/25/2020 10:42:02 Snoring 27657103 R06.83 Susy g the patient's snoring, witnessed [...] time. Advised to never drive if drowsy [id number] LEONEL OLIVARES PA-C [facility] CLOS[facility] [address] [place] [id number] 11/03/2020 11:23:12 11/03/2020 11:26:59 [id number] LEONEL OLIVARES PA-C PULMONARY [address] [place] [address], [address] [place] [id number] 11/17/2020 09:50:36 11/17/2020 09:57:13 Obstructive sleep apnea syndrome 59774297 G47.33 Mild to moderate MARIANA. Discussed treatment options of mandibular advancemen t device, weight loss and CPAP. At this time, she would like to move forward with CPAP. She will be set up on AutoPap 6-16 cm and have a 60-90 day follow-up after starting CPAP. [id number] DO NUSRAT GUTIERREZ [place] [address] [place] [address] 11/25/2020 09:34:41 11/25/2020 10:28:01 Gynecologic examination 37093946 Z01.419 Pap collected today. Discussed pap smear guidelines and importance of annual exams. To start screening mammograms at age 42 [id number] SOBIA CONCEPCION MD [facility] [address] [place] [address] 12/02/2020 14:54:46 12/02/2020 15:22:47 Hypothyroidism 55353413 E03.9 check tsh back on levothyrox ine x 2 months Adult heal th examination 208788277 Z00.00 pap 11/2020 ASCUS w/ HPV pos-will need a pap 11/2021 with urogynaecologist mammogram due at age 42 check cv screening labs no contracept ion-trying for Vitamin D deficiency 347 52253 E55.9 f/u vit d and will see if needs to continue Multinodular goiter 2375 19738 E04.2 history of maybe? Snoring 01883756 R06.83 pos mariana Generalize d anxiety disorder 11954854 F41.1 on zoloft 50 mg not with her today- Atypical s quamous cells of undetermined significance on cervical Papanicolaou smear 084445065 R87.610 Human deirdre llomavirus deoxyribonucleic acid detected, high risk on cervical specimen 545736358 R87.810 Obstructiv e sleep apnea syndrome 57094068 G47.33 [id number] DO NUSRAT GUTIERREZ [facility] [address] [place] [address] 12/15/2020 10:16:19 12/15/2020 11:37:08 Screening procedure 32534305 Z13.9 Atypical s quamous cells of undetermined significance on cervical Papanicolaou smear 939449721 R87.610 Normal appearing cervix. ECC collected. Will call patient with results Human deirdre lloma virus vaccination given 8234277073 9107 Z23 [id number] DO NUSRAT GUTIERREZ [address] [place] [address] 01/11/2021 10:59:07 01/11/2021 11:09:39 Human papilloma virus vaccination given 8860327493 9107 Z23 2nd Gardasil vaccine [id number] DO NUSRAT GUTIERREZ [address] [place] [address] 05/15/2021 11:08:40 05/15/2021 11:58:43 Human papilloma virus vaccination given 2919558481 9107 Z23 3rd Gardasil vaccine [id number] GUDELIA LEE APRN [facility] [address] [place] [id number] 06/26/2021 11:22:59 06/28/2021 12:00:10 Alopecia 84365827 L65.9 Hypothyroidism 41986600 E03.9 Generalize d anxiety disorder 17055054 F41.1 switch to wellbutrin . Vitamin D deficiency 347 39927 E55.9 Hyperlipidemia 98971022 E78.5 trying to conceive so not able to take medication . 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 If change or any new areas develop recommend recheck Alopecia Areata discussed. For now monitor no treatment [id number] SOBIA CONCEPCION MD [facility] [address] [place] [id number] 08/14/2021 15:25:38 08/14/2021 16:15:10 Generalized anxiety disorder 53441480 F41.1 zoloft worked well but sexual SEcont wellbutrin but increase to 300 mgcall me in a month if this is NOT controllin g sx adequately -i'll rec she see mental health providersh e is planning for - options are limited. Administra tion of influenza vaccine 10461875 Z23 [id number] JARETH LUKE PA-C [facility] [place] CL[facility] [address] [place] [address] 11/13/2021 16:00:10 11/13/2021 16:51:48 Acute urinary tract infection 026654223 N39.0 Risks and benefits of the new medication discussed with patient, along with reasonable alternativ es. Patient has voiced understand ing and is in agreement with treatment choice. [id number] DO NUSRAT VILLAVICENCIO [address] [place] [address] 11/24/2021 10:45:37 11/27/2021 08:09:48 Amenorrhea 16917723 N91.2 Uncertain viability of 565062485 O36.80X9 Blood work ordered. Ultrasound without any [...] understand s and all questions were answered. [facility] nning surveillance 281363955 Z30.09 Handout provided and fertility education provided. [id number] DO NUSRAT VILLAVICENCIO [address] [place] [address] 12/12/2021 10:59:13 12/12/2021 11:57:57 Screening for malignant neoplasm of cervix 548350039 Z12.4 pap collected Family [facility] nning surveillance 491750226 Z30.09 Handout provided and fertility education provided last visitrebeca carrillo labs ordered Hypothyroidism 48641557 E03.9 discussed goal of tsh <2.5 Screening mammography 24 294697 Z12.31 mmg due in february, ordered Irregular periods 283147 07 N92.6 skipped cycle this month, likely 2/2 chemical preg this month. will get labs to ensure no abnormalit y. us ordered too. Body mass index 40+ - severely obese 751852388 Z68.42 encouraged healthy diet and exercise encouraged 150 mins moderate activity or 75 mins of vigorous activity weekly Gynecologi c examination 70235795 Z01.419 Pap: ascus 2021repeat pap due and collectedm ammogram aprilrepea t mammogram pending firstbreas t/pelvic exam normal except where otherwise documented f/u 1 year for annual or sooner if neededcont inue care/labs with PCP Atypical s quamous cells of undetermined significance on cervical Papanicolaou smear 945861562 R87.610 2020 ascus [id number] SOBIA CONCEPCION MD [facility] [address] [place] [address] 12/27/2021 10:05:02 12/27/2021 10:59:32 Generalized anxiety disorder 90402013 F41.1 zoloft worked well but sexual SEcont wellbutrin 300 mg Hypothyroidism 60972938 E03.9 cont levo 75 mcg Adult heal th examination 119004046 Z00.00 pap 11/2021-asc us hpv pos-colpo planned for 02/06 mammogram due at age 42-ordered check [facility] Vitamin D deficiency 347 74706 E55.9 f/u vit d and will see if needs to continue Screening mammography 24 091354 Z12.31 Administra tion of diphtheria, pertussis, and tetanus vaccine 058011998 Z23 Complete miscarriage 156 084662 O03.9 [id number] DO NUSRAT VILLAVICENCIO [facility] [address] [place] [address] 02/08/2022 10:32:36 02/08/2022 11:59:31 Atypical squamous cells of undetermined significance on cervical Papanicolaou smear 860803257 R87.610 2020 ascus 2021 ascus +HR HPVcolpo biopsy taken at 4:00. Final plan pending results but likely repeat in 1 year Human deirdre llomavirus deoxyribonucleic acid detected, high risk on cervical specimen 384534310 R87.810 Screening procedure 2012 5006 Z13.9 Family juancarlos nning surveillance 064689496 Z30.09 Handout provided and fertility education provided last visitprena lorena labsvarice lla and rubella immuneamh 5Reviewed the lab work from last visit. All normal. TSH was not collected however, will collect today. Hypothyroidism 40989197 E03.9 discussed goal of tsh <2.5FT4 wnl TSH ordered Irregular periods 833603 07 N92.6 skipped cycle this month, likely 2/2 chemical preg this month. will get labs to ensure no abnormalit y. us ordered wnlCycle has now regulated. Body mass index 40+ - severely obese 424474565 Z68.42 encouraged healthy diet and exerciseen couraged 150 mins moderate activity or 75 mins of vigorous activity weeklyEnco uraged healthy weight going into so encouraged weight loss. Discussed increased risks of obesity in . Encourage vitamins with folic acid. Egg reserve looks good but increased risk of genetic issues and trisomy. [id number] SOBIA CONCEPCION MD [facility] [address] [place] [address] 04/19/2022 15:01:12 04/19/2022 15:39:42 Laceration of finger 046858913 S61.210A sutures removed and steri strips placedno infection. has completed keflex.tda p UTD Retinal hemorrhage 50775 008 H35.60 glc normal and bp normal. [id number] DON CHOUDHURY APRN [facility] [address] [place] [address] 11/01/2022 14:22:06 11/07/2022 13:21:49 Respiratory tract congestion and cough 628140223 R05.2 chronic stable acute issue, extending therapy for 2 more weeks. [id number] DO NUSRAT VILLAVICENCIO [facility] [address] [place] [address] 12/21/2022 13:28:56 12/21/2022 14:33:01 Family planning surveillance 691336656 Z30.09 O+ Handout provided and fertility education providedSe men analysis, egg reserve, remaining labs ordered. Will alter as needed and recommend fertility referral. Patient is agreeable. Referral placed. Evangelist lang age 680128622 O09.519 Increased risks of infertilit y as well as various chromosoma l defects. All questions answered. Hypercholesterolemia 136 37320 E78.00 rec stopping atorvastat in when trying to conceive [id number] SOBIA CONCEPCION MD [facility] [address] [place] [address] 12/31/2022 08:58:32 01/04/2023 13:33:40 Adult health examination 237526245 Z00.00 pap 11/2021-asc us hpv pos-sees LC urogynaecologist mammogram due at age 42-ordered againcovid x5flu utdtdap 2021 Generalize d anxiety disorder 33068878 F41.1 zoloft worked well but sexual SEcont wellbutrin 300 mg-OB is ok w/ this Hypothyroidism 72329258 E03.9 cont levo 100 mcgshe has missed some doses-tsh was high- Vitamin D deficiency 347 16235 E55.9 vit d normalized dec 2022. Screening mammography 24 784477 Z12.31 Morbid obesity 945566829 E66.01 BMI 47. she is regaining weight Mixed hyperlipidemia 267 321444 E78.2 start atorvastat in 12/28/21-bu t stopped it bc now trying for . LDL 212 dec 2021.rec working on low fat diet w/ eliminatio n/small amounts of red meat, dairy, fats, oils. Female hirsutism 9197039 9 L68.0 regular menses [id number] ALEC DIOP, [facility] [address] [place] [address] 06/12/2023 15:19:28 06/12/2023 15:59:44 Family planning surveillance 950926101 Z30.09 patients partner getting SAstill plans to follow up with [facility] Advanced maria r lang age 919047791 O09.519 previously addressed increased risks of infertilit y as well as various chromosoma l defects. no new questions Dysmenorrhea 211354804 N 94.6 exam normalus ordereddis cussed tx with heat or premedicat ion. patient will try that Screening for malignant neoplasm of cervix 281533979 Z12.4 pap collected Screening mammography 24 423529 Z12.31 cont annual mmg Body mass index 40+ - severely obese 882410423 Z68.42 encouraged healthy diet and exercise encouraged 150 mins moderate activity or 75 mins of vigorous activity weekly Gynecologi c examination 81957001 Z01.419 Pap: ascus 2022repeat pap due and collectedm ammogram 3repeat mammogram annuallybr east exam deferred per patient/pe lvic exam normal except where otherwise documented f/u 1 year for annual or sooner if neededcont inue care/labs with PCP Atypical s quamous cells of undetermined significance on cervical Papanicolaou smear 845912213 R87.610 ascus +HR HPV, rpt pap ordered Hypothyroidism 65098604 E03.9 discussed goal of tsh <2.5TSH elevated 03/2022, increased tsh, rpt tsh ordered [id number] DO NUSRAT VILLAVICENCIO [facility] [address] [place] [address] 06/21/2023 15:21:24 06/22/2023 04:42:10 Family planning surveillance 228382668 Z30.09 patients partner getting Hermilo plans to follow up with Allie hernandez provided Advanced m aternal age 489445363 O09.519 previously addressed increased risks of infertilit y as well as various chromosoma l defects. no new questions Dysmenorrhea 288783855 N 94.6 exam normalus 2 small fibroidsgi jed these small fibroids no change to previous plan. still ok for heat or premedicat ion. Hypothyroidism 16718093 E03.9 discussed goal of tsh <2.5TSH elevated 03/2022, increased tsh, rpt tsh further elevated. discussed with patient and upon further questionin g we discovered she had not understood she couldnt have even liquid po intake for 30 mins following dosage.onl y taking synthroid correctly x a few days. will rpt on 09/06 to ensure improving once taken correctly [id number] DO NUSRAT VILLAVICENCIO [facility] [address] [place] [address] 10/16/2023 08:45:21 10/16/2023 09:27:09 Hypothyroidism 26062400 E03.9 has not seen endocrine, tsh ordered Uncertain viability of 662182928 O36.80X9 O+ Blood work ordered. Ultrasound without [...] prior to leaving. Advanced m aternal age 842220845 O09.519 Hypothyroi dism in 523999254 E03.9 [id number] DO NUSRAT VILLAVICENCIO [place] [address] [place] [address] 11/04/2023 09:44:48 11/04/2023 10:27:46 Uncertain viability of 183102312 O36.80X9 O+ 11/04/23 US with GS, discussed and repeat US in 2 weeks. call/retur n precaution s reviewed Hypothyroidism 79283930 E03.9 TSH 5.86 10/16/23, rpt tsh ordered Advanced m aternal age 552082809 O09.519 Hypothyroi dism in 953289529 E03.9 [id number] DO NUSRAT VILLAVICENCIO [place] [address] [place] [address] 11/20/2023 15:37:05 11/20/2023 16:21:21 Serum thyroid stimulating hormone level outside reference range 075022523 R89.1 TSH with reflex T4 given history of noncomplia nce. Complete miscarriage 156 271171 O03.9 Discussed trending beta back to normal. Advised patient to send a message to [facility] in [place] as she was previously being seen by them. Recurrent miscarriage 10 6546954 N96 Discussed first was chemical and then this was her first real miscarriag e but patient is 43 and very anxious and would prefer to have workup for recurrent miscarriag e. Labs ordered. [id number] DANIEL ELIZALDE MD ENDOCRINO [facility] [address] [place] [address] 12/16/2023 14:36:07 12/17/2023 04:39:16 Hypothyroidism 75971839 E03.9 New consultati on uncontroll ed hypothyroi [...] levothyrox in therapy. Provided patient with 4-week [facility] of brand Synthroid Recheck TSH and free [...] e in the care of this patient. [id number] [place] [address] [place] [address] 01/02/2024 13:49:42 01/15/2024 11:45:56 Adult health examination 757777104 Z00.00 papsees LC urogynaecologist mammogram 12/2022-ord eredcovid x5flu utdtdap 2021 Generalize d anxiety disorder 43910449 F41.1 zoloft worked well but sexual SEcont wellbutrin 300 mg-OB is ok w/ this Hypothyroidism 20864595 E03.9 cont synthroid 200 per ENDO Vitamin D deficiency 347 67568 E55.9 f/u vit d Mixed hyperlipidemia 267 745319 E78.2 start atorvastat in 12/28/21-bu t stopped it bc now trying for . LDL 212 dec 2021.rec working on low fat diet w/ eliminatio n/small amounts of red meat, dairy, fats, oils. Pruritic rash 34381809 L 28.2 trial tac Foot callus 034869890 L8 4 rec after bath/showe r to file down, small amounts as needed, look at shoewear Screening mammography 24 200240 Z12.31 Administra tion of influenza vaccine 59682907 Z23 [id number] DANIEL ELIZALDE MD [facility] [address] [place] [address] 01/16/2024 13:44:45 01/16/2024 16:09:55 Hypothyroidism 73039083 E03.9 Follow-up uncontroll ed hypothyroi dism2 miscarriag [...] levothyrox in therapy.Re check TSH and free D7Ljstefv adjustment as appropriat e to keep TSH levels below 2.5. Patient verbalized understand ing and agreed with the above mentioned plan of care. [id number] SOBIA CONCEPCION MD [facility] [address] [place] [address] 01/05/2025 14:01:03 01/11/2025 11:20:42 Adult health examination 709207917 Z00.00 pap sees LC urogynaecologist mammogram 01/2024-ord eredcovid x5flu utdtdap 2021 Generalize d anxiety disorder 43175388 F41.1 anxiety plus depression zoloft worked well but sexual SEcont wellbutrin 300 mg-OB is ok w/ this Hypothyroidism 90464162 E03.9 cont synthroid 200 per ENDO Vitamin D deficiency 347 59073 E55.9 f/u vit d Mixed hyperlipidemia 267 121722 E78.2 start atorvastat in 12/28/21-bu t stopped it bc now trying for . LDL 212 dec 2021.rec working on low fat diet w/ eliminatio n/small amounts of red meat, dairy, fats, oils. Screening mammography 24 766475 Z12.31 Fertility problem 989974 06 N97.9 working w/ IVF [id number] DANIEL ELIZALDE MD [facility]CR[facility] [address] [place] [address] 01/14/2025 14:24:47 01/14/2025 15:17:20 Hypothyroidism 31760486 E03.9 Appears a clinically euthyroidM ost recent [...] Guarantor Name 2025 PAYMENT PLAN Judit Dominguez 05/08/2025 1 [place] [id number] 4 Jonathan Gil [id number] Judit Dominguez Notes Date Note Type [...] am up from 150 DANIEL ELIZALDE MD [address] [place] [address], [phone], [facility] 12/16/2023 16:37:30 4 text/html annual --anxiety-doing well on buproprion 300mg--hx vit d def-labs recently wnl--hypothyroidism-synt hroid 200mcg and due for labs upcoming--hl on atorvastatin 10-but is trying for and stopped it. rash itchy to upper right armbump to right lateral foot SOBIA CONCEPCION MD [address] [place] [address], [phone], [facility] 01/02/2024 14:19:15 4 text/html 43-year-old female patient with a past medical history as detailed in the problem significant for vitamin D deficiency, longstanding history of hypothyroidism seen today as a new for any 6-week follow-up uncontrolled hypothyroidism.Initial consultation on 12/16/[address] Dinheported long his standing history of hypothyroidism and [...] loss or leg cramping DANIEL ELIZALDE MD [address] [place] [address], [phone], [facility] 01/16/2024 16:07:57 5 text/html annual --anxiety and depression-doing well on buproprion 300mg--hx vit d def--hypothyroidism-synt hroid 200mcg--hl on atorvastatin 10-but is trying for and stopped it. doing ivf-has one more round upcoming. 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 had flu a few weeks agofeeling betterno acute issues SOBIA CONCEPCION MD [address] [place] [address], [phone], [facility] 01/05/2025 14:33:03 5 text/html 44-year-old female patient with a [...] or choking lying flat DANIEL ELIZALDE MD [facility] [place], [address], [facility] 01/14/2025 15:15:48 OBGyn Episode No OBEpisode recorded.
--- OUTSIDE RECORDS SUMMARY | 2025-05-19 10:44 | XMS_ITS | Clinical Summary ---
Author Organization [facility] Address [address] [place] [address] Care Team Providers Care Dandy Tender Name Role Phone Sherly Ramachandran MD Primary Care Provider [phone] Source Comments This information has been disclosed [...] therelease of HIV test results or diagnoses. [id number] Allergies No known active allergies Medications [...] Department Care Team Description 02/22/2025 Chart Note [facility] Reproductive [facility] [address] [place] [address] aKmila Yancey Pt stopped by the office to [...] 5.6 4.0 - 6.0 % Whole Blood [facility] Provider MD LAB BLOOD ORDERABLES Chiqui l Result from Last 3 Months or Most Recently Relevant to Health Maintenance Insurance Care Teams Dandy Tender Relationship Specialty Start Date End Date Sherly Ramachandran MD [address] [place] [id number] PCP - General Internal Medicine 03/26/24
== END 2025-05-19 23:59 | disposition home or self-care (01) ==
LOC: LAB 10:40
PROVIDERS: PCP Internal Medicine; Visit Provider Obstetrics & Gynecology Reproductive Endocrinology
DX: O02.1 Missed abortion (principal)
CPT/HCPCS: 36415; 84702

== ENCOUNTER 2025-05-25 10:07 | Outpatient (CLI) | payer BC, SELFPAY ==
[2025-05-25 10:11] VITALS: BMI 44.6
--- OUTSIDE RECORDS SUMMARY | 2025-05-25 10:11 | XMS_ITS | Clinical Summary ---
Author Organization [facility] Address [address] [place] [address] Care Team Providers Care Examination Supervisor Name Role Phone Sherly Ramachandran MD Primary Care Provider [phone] Source Comments This information has been disclosed [...] therelease of HIV test results or diagnoses. [id number] Allergies No known active allergies Medications [...] Recurrent loss without current pregnan cy 07/02/2024 Family History Medical History Relation Comments Diabetes [...] Date Last Done Comments Hepatitis C Screening ([employer]) 1982 Depression Screening 2000 Immunization: Hepatitis B (1 of 3 - 19+ 3-dose series) 2001 Cervical Cancer Screening/Pap Smear ([employer]) 2012 Mammogram ([employer]) 2022 Immunization: COVID-19 () 07/19/2024 10/20/2021, 09/18/2021, 03/08/2021, Additional history exists Diabetes Screening 02/17/2025 02/18/2024 Immunization: Influenza ([employer]) (#1) 07/19/2025 01/02/2024, 10/19/2022, 08/14/2021, Additional history exists Immunization: [...] 5.6 4.0 - 6.0 % Whole Blood Historical Provider MD LAB BLOOD ORDERABLES Chiqui l Result from Last 3 Months or Most Recently Relevant to Health Maintenance Insurance Care Teams Examination Supervisor Relationship Specialty Start Date End Date Sherly Ramachandran MD [facility] [place] [address] PCP - General Internal Medicine 03/26/24
--- OUTSIDE RECORDS SUMMARY | 2025-05-25 10:11 | XMS_ITS | Patient Health Record ---
Author Organization [facility] Address [address] [place] [address] Care Team Providers Care Treating And Pumping Supervisor Name Role Phone Sherly Ramachandran Primary Care [...] Status W/U Status Risk Notes Problem Sinusitis (34256103) Sinusitis (J32.9) Active confirmed Plan Of Treatment Pending Test Test Name Order Date Urinalysis (IH) 05/30/2010 Insurance Providers Payer Name Payer Address Payer Phone Subscriber Number Group Number Insured Name Patient Relationship to Insured Coverage Start Date Coverage End Date [facility] [address] [place] [address] [id number] Judit Kelly Self - patient is the insured Medications Administered Medication Instructions Date of Administration Dosage Notes Kenalog 40 (40mg Admin) 05/26/2018 1 mL Medical (General) History Medical History History ICD Code None Surgical History Surgery Date(Month/Year) none Hospitalization History Reason Date(Month/Year) concussion at age 12yrs
--- NOTE | 2025-05-25 10:34 | ECG_ITS ---
APPROVED REPORT Exam: Resting ECG HR:86 bpm ECG Measurements Heart Rate 86 AXES [place] 121 P -1 QRSd 87 QRS 17 QT 346 T 15 QTc 389 Conclusion SINUS RHYTHM NORMAL ECG UNCONFIRMED REPORT Electronically signed by : Papito Deleon MD 05/26/2025 08:24:40
[2025-05-25 10:46] LABS: Hematocrit 37.3 % (37.0-47.0); Hemoglobin 11.7 g/dL (12.2-16.2); Immature Granulocytes % 0.3 %; Mean Corpuscular HGB Conc 31.4 g/dL (31.8-35.4); Mean Corpuscular Hemoglobin 25.8 pg (27.0-31.2); Mean Corpuscular Volume 82.2 fl (81-99); Nucleated Red Blood Cells % 0 %; Platelet Count 295 K/mm3 (142-424); Red Blood Count 4.54 M/mm3 (4.20-5.40); Red Cell Distribution Width-SD 43.9 fL; White Blood Count 3.8 K/mm3 (4.8-10.8)
[2025-05-25 10:59] LABS: Alanine Aminotransferase 46 U/L (12-78); Albumin Level 4.5 g/dl (3.5-5.0); Albumin/Globulin Ratio 1.6 (1.1-1.8); Alkaline Phosphatase 70 U/L (38-126); Anion Gap 15.2 mEq/L (5-15); Aspartate Amino Transferase 41 U/L (14-36); Bilirubin,Total 0.4 mg/dl (0.2-1.3); Blood Urea Nitrogen 10 mg/dl (7-17); Calcium 9.2 mg/dl (8.4-10.2); Carbon Dioxide 27 mmol/L (22.0-30.0); Chloride 101 mmol/L (98-107); Creatinine Clearance Estimated 82 mL/min (50-200); Creatinine,Serum 0.70 mg/dl (0.52-1.04); Estimated Glomerular Filt Rate 91 ml/min (>60); GFR (African American) 111 ML/MIN (>60); Globulin 2.9 g/dL (1.3-3.2); Glucose 89 mg/dl (74-100); Potassium 4.2 mmoL/L (3.5-5.1); Sodium 139 mmol/L (136-145); Total Protein,Serum 7.4 g/dl (6.3-8.2)
[2025-05-25 11:23] LABS: HCG Qualitative, Serum Negative (Negative)
== END 2025-05-25 23:59 | disposition home or self-care (01) ==
LOC: PREOP 10:08
PROVIDERS: PCP Internal Medicine; Visit Provider Obstetrics & Gynecology
DX: Z01.810 Encounter for preprocedural cardiovascular examination (principal); Z01.812 Encounter for preprocedural laboratory examination
CPT/HCPCS: 80053; 84703; 85025; 93005

== ENCOUNTER 2025-05-26 09:37 | Day surgery (SDC) | payer BC, SELFPAY ==
[2025-05-25 11:31] VITALS: BMI 43.9
[2025-05-26] VITALS (13 sets, daily range): BP systolic 123–156; BP diastolic 64–102; PULSE 74–93; RESP 16–18; TEMP 36.3–36.7; O2SAT 91–98
--- NOTE | 2025-05-26 11:29 | P.PNANES_ITS ---
[facility] Disclaimer: The information contained in this section may have been updated after the patient was seen, as this information can be updated by other users. Medical History (Updated 05/25/25 @ 10:20 by Pillo Young RN) Hypothyroid Viral upper respiratory infection Problems with ovulation Oligo-ovulation Faint heart murmur Light-headedness Laceration of finger Surgical History No significant past surgical history Family History (Updated 05/25/25 @ 10:21 by Pillo Young RN) Other Family history of diabetes mellitus Social History (Updated 05/25/25 @ 10:22 by Pillo Young RN) Smoking Status: Never smoker alcohol intake: never substance use type: denies use current occupational status: employed Travel in the last 8 weeks?: None [facility] Anesthesia Checklist Patient Identification Patient Identification: Arm Band Structural Data Admitted From: Home Planned Operative Procedure/s: Hysteroscopy, D&C, Myosure Consent for Planned Operative Procedure(s) Verified: Yes Verified Documents: Surgical Consent and History and Physical NPO Status Verified Time NPO: 00:00 Additional verifications Anesthesia Reactions: No Hx Blood Transfusions: No Blood Transfusion Reaction: No Airway Assessment Mallampati Score:: Class II C-Spine Mobility Assessed: Yes TMJ Mobility Assessed: Yes Dentition: Good Dentition Neurological Assessment Level of Consciousness: Awake, Alert and Appropriate Anesthesia Plan Anesthesia Risk discussed: Yes Anesthesia Plan: Verified ASA Class: III Anesthesia Type: General
--- NOTE | 2025-05-26 12:23 | P.PNANES_ITS ---
[facility] Anesthesia Record Part I Anesthesia Record I Intake, IV Amount: 900 Hydration: Adequate Estimated blood loss (mL): 10 Urine output (mL): 0 Blood Products used (#): none Blood Pressure: 147/102 SaO2: 91 Pulse Rate: 87 Airway Patency: Patent Respiratory Rate: 16 Temperature: 98.1 F Patient is:: Drowsy and Stable Stable to PACU at:: 12:20
[2025-05-26] MEDS: HYDROMORPHONE 2MG/ML SYRINGE 0.5 MG IV ×4 (12:38→12:53)
--- NOTE | 2025-05-26 12:50 | EXP.OP.NOTE ---
Date of procedure: 05/26/25 Pre-op Diagnosis:: 1. Primary infertility 2. Fibroid uterus, impinging on the uterine cavity Post-op Diagnosis:: 1. Primary infertility 2. Fibroid uterus, impinging on the uterine cavity 3. Endometrial fibroid Procedure performed:: Hysteroscopy, dilation, and MyoSure myomectomy Surgeon:: Alea Wright DO Anesthesia: GETA Estimated blood loss (mL): 10 Operative findings:: Findings: -EUA revealed an 6-week anteverted uterus, the exam was largely non revealing secondary to habitus. No significant prolapse or support defects noted. Very high and well supported cervix. -Hysteroscopy revealed one large anterior wall fibroid, the base was large and not pedunculated. Operative note:: The patient was taken back to the OR where general anesthesia was obtained.? She was placed in the dorsal lithotomy position using yellow fin stirrups and sterilely prepped and draped in the usual fashion.? An in and out catheter was used to drain her bladder.? A timeout was performed.? A weighted speculum was used to visualize this cervix, a single-tooth tenaculum was applied to the anterior lip of the cervix. The cervix was only slightly dilated to allow entry to the ectocervix and hydrodisection was used to get the scope the rest of the way into the cavity. The hysterscope was inserted and a large fibroid was noted as described above. Images were obtained of the cavity. The tubal ostia were visible.? Decision was made to proceed with the MyoSure for myomectomy. Device set up, primed and zeroed. The device was used to resect the outer edge of the fibroid until the complete removal was achieved and the cavity was smooth. There was a small polyp on the posterior wall that was also removed At the conclusion of the procedure there was a fluid deficit of 400mLs. Total myosure cutting time was 0minutes 51seconds. Following complete removal of the fibroids/polyps the MyoSure hysteroscope was removed.? A ramirez catheter was placed in the uterus to decrease adhesion formation. It was filled with 20mL of normal saline. The single-tooth tenaculum was removed and hemostasis was noted at the tenaculum sites.? All instruments were removed from the vagina.? All counts were correct, per nursing.? This concluded the procedure, the patient was awakened from anesthesia, and transferred to the PACU in stable condition. Condition: stable Disposition: same day Specimens:: Endometrial polyp/ fibroid Complications:: None
[2025-05-26] MEDS: MEPERIDINE 25MG/ML 1ML SYRINGE 25 MG IV (12:56)
[2025-05-26] MEDS: MORPHINE 2MG/ML SYRINGE 2 MG IV (12:58)
[2025-05-26] MEDS: HYDROMORPHONE 2MG/ML SYRINGE 1 MG IV (13:21)
--- NOTE | 2025-05-26 14:07 | SUR.PHASEI ---
1305- Pt still has 10/10 pain at this time. She states that she is very uncomfortable. malou Vital called md Theresa for further orders. She gave a verbal order to do 2mg IV push once. Rfnkechi kaufman at bedside. malou Vital started at 1mg additional dilaudid.
--- NOTE | 2025-05-27 12:27 | P.PNANES_ITS ---
[facility] Anesthesia Record Part II Anesthesia Record Part II Discharge Time: 13:25 Destination: Surgical Day Care (OP Surgery) PACU nurse assessment reviewed?: Yes Patient Condition:: Good Anesthesia Complications:: None Swallowing reflex intact?: Yes Airway Patency: Patent Cyanosis?: No Blood Pressure: 139/72 SaO2: 98 Respiratory Rate: 16 Pulse Rate: 79 Temperature: 98.1 F Mental Status: Alert & Oriented Pain level:: 5 Nausea and/or vomitting:: None Intake, IV Amount: 0 Hydration: Adequate
[2025-05-27 12:28] VITALS: BP 139/72; PULSE 79; RESP 16; TEMP 36.7; O2SAT 98
== END 2025-05-26 13:56 | disposition home or self-care (01) ==
PROVIDERS: PCP Internal Medicine; Visit Provider Obstetrics & Gynecology
PROC: 0UDB8ZZ Extraction of Endometrium, Via Natural or Artificial Opening Endoscopic (ICD-10-PCS; CPT 58558; principal; 2025-05-26 11:15)
DX: D25.9 Leiomyoma of uterus, unspecified (principal); N84.0 Polyp of corpus uteri; N97.0 Female infertility associated with anovulation; E66.9 Obesity, unspecified; E03.9 Hypothyroidism, unspecified; Z68.41 Body mass index [BMI] 40.0-44.9, adult; Z79.890 Hormone replacement therapy; Z79.84 Long term (current) use of oral hypoglycemic drugs; Z79.899 Other long term (current) drug therapy
CPT/HCPCS: 58561; 96374; J1100; J1171; J1885; J2003; J2175; J2250; J2270; J2405; J2704; J3010

== ENCOUNTER 2025-07-25 10:16 | Emergency (ER) | payer BC, SELFPAY ==
--- NOTE | 2025-07-25 10:18 | HMH.EDGENADL ---
Discharge Plan Disposition Patient Disposition: Home, Self-Care Condition: Good Prescriptions Prescriptions: No Action metformin 500 mg tablet extended release 24 hr 1,000 mg PO BID levothyroxine [Synthroid] 200 mcg tablet 225 mcg PO DAILY bupropion HCl [Wellbutrin XL] 300 mg tablet extended release 24 hr 300 mg PO DAILY ibuprofen 800 mg tablet 800 mg PO Q8H PRN (Reason: pain) Qty: 60 2RF acetaminophen 500 mg tablet 500 mg PO Q6H PRN (Reason: fever or pain) Qty: 30 3RF oxycodone 5 mg tablet 5 mg PO Q8H PRN (Reason: pain) Qty: 5 0RF estradiol [Brittany] 0.025 mg/24 hr patch semiweekly 1 patch transdermal ONCE Qty: 8 0RF ergocalciferol (vitamin D2) 25,000 unit Capsule 50,000 unit PO WEEKLY naltrexone 1.5 mg Capsule 3 mg PO DAILY Referrals Follow up/Referrals: Sherly Ramachandran MD [Primary Care Provider, Medical] - See instructions Activity Restrictions/Add. Instructions Additional Instructions/Restrictions: Stay well-hydrated. Return to the emergency department if you develop vomiting, abdominal pain, palpitations, chest pain, shortness of breath, altered mental status, headaches, vision changes, or if you become concerned for your health. Clinical Impressions Clinical Impression: Accidental drug ingestion Instructions Patient Instructions: Subjective Opioid Withdrawal Scale (SOWS) Print Language Print Language: Colombian Discharge ED Provider: Mingo Jose Adult HPI General Chief complaint: Overdose Stated complaint: pt took to much synthroid Time Seen by Provider: 07/25/25 10:18 History of Present Illness HPI narrative: Patient is a 45-year-old female with a history of hypothyroidism, anxiety on Wellbutrin. She has recently had adjustments in her Synthroid dosing and has been having to take 25 mcg tablets to get up to her 200 mcg dosage. This morning, she was sleepy and was not paying attention when she took her Synthroid and instead of taking the 25 mcg tablets, accidentally took no more than 10 of the 200 mcg dosage of the Synthroid. She has had no symptoms, but was concerned and so presented to the ER. She attempted to make herself throw up at home but could not. She denies any palpitations chest pain shortness of breath fevers nausea vomiting diarrhea abdominal pain, anxiety, tremors. She has not taken her Wellbutrin yet for today. She denies any thoughts of self-harm. Related Data Home Medications ?Medication ?Instructions ?Recorded ?Confirmed bupropion HCl 300 mg 24 hr tablet, 300 mg PO DAILY 05/13/25 06/11/25 extended release (Wellbutrin XL) levothyroxine 200 mcg tablet 225 mcg PO DAILY 05/13/25 06/11/25 (Synthroid) metformin 500 mg tablet,extended 1,000 mg PO BID 05/13/25 06/11/25 release 24 hr ergocalciferol (vitamin D2) 25,000 50,000 unit PO WEEKLY 05/25/25 06/11/25 unit capsule naltrexone 1.5 mg capsule 3 mg PO DAILY 05/25/25 06/11/25 Previous Rx's ?Medication ?Instructions ?Recorded acetaminophen 500 mg tablet 500 mg PO Q6H PRN fever or pain 05/26/25 #30 tabs estradiol 0.025 mg/24 hr 1 patch transdermal ONCE #8 ea 05/26/25 semiweekly transdermal patch (Brittany) ibuprofen 800 mg tablet 800 mg PO Q8H PRN pain #60 tabs 05/26/25 oxycodone 5 mg tablet 5 mg PO Q8H PRN pain #5 tabs 05/26/25 Allergies Allergy/AdvReac Type Severity Reaction Status Date / Time No Known Allergies Allergy Verified 06/11/25 10:51 [facility] Disclaimer: The information contained in this section may have been updated after the patient was seen, as this information can be updated by other users. Medical History Hypothyroid Viral upper respiratory infection Problems with ovulation Oligo-ovulation Faint heart murmur Light-headedness Laceration of finger Surgical History No significant past surgical history Family History Other Family history of diabetes mellitus Social History Smoking Status: Never smoker alcohol intake: never substance use type: denies use current occupational status: employed Travel in the last 8 weeks?: None Have you lived/traveled outside US in past 30 days?: No Contact w/someone who lives/traveled outside US past 30 days?: No Exposure to someone with infectious disease in past 14 days?: No Do you have a fever (greater than 100.4 F or 38 C)?: No Have you tested positive for COVID-19?: No Exposed to someone with COVID-19 in past 14 days?: No Do you have a sore throat?: No Do you have a cough?: No Do you have any weakness?: No Do you have any diarrhea?: No Are you experiencing any unusual bleeding?: No Do you have any muscle aches/pain?: No Do you have any abdominal pain?: No Are you experiencing loss of taste or smell?: No Other Medical History Have you received the Flu Vaccine for this season: No Have you received the Pneumonia Vaccine: No ROS Obtained: Yes All systems reviewed & no additional complaints except as documented Physical Exam General General appearance: alert and in no apparent distress Head Head exam: atraumatic and normocephalic Eye Eye exam: Present PERRL and EOMI ENT ENT exam: Present normal oropharynx Neck Neck exam: Present full ROM and trachea midline Chest Chest inspection: Present symmetric chest wall rise Respiratory Respiratory exam: Present normal lung sounds bilaterally; Absent stridor Cardiovascular Cardiovascular exam: Present regular rate and normal rhythm Abdominal Exam Abdominal exam: Present soft; Absent distention or tenderness Extremities Exam Extremities exam: Present full ROM Neurological Exam Neurological exam: Present alert and oriented X3 Psychiatric Psychiatric exam: Present normal mood Skin Skin exam: Present warm and dry Medical Decision Making Medical Records Screening: Per USPSTF and CDC recommendations, given the prevalence of disease in our region, it is our hospital?s policy to screen for HIV and viral Hepatitis for all patients aged 18 and over and those with ongoing risk factors. Jeremy Inquiry Pt receiving controlled substance: No Vital Signs: 07/25/25 10:25 Temperature 98.4 F Temperature Source Oral Pulse Rate [Right] 101 H Respiratory Rate 18 Blood Pressure [Right Arm] 152/101 H Blood Pressure Mean [Right Arm] 118 02 Sat by Pulse Oximetry 99 ECG Data Tracing #1: Independently interpreted by myself demonstrate normal sinus rhythm with no obvious acute ischemic ST change. Poor R wave progression, not acutely actionable. Intervals within normal limits. Medical Decision Narrative: Patient is a 42-year-old female with history of hypothyroidism and anxiety was on Synthroid and Wellbutrin. She accidentally took too much of her Synthroid this morning. She is stable here. Afebrile. I have no concerns for self-harm, this was truly an accidental ingestion. Patient maintains a linear thought pattern and denies any SI HI or AVH. Took 200 mcg x 10 equaling 2000 mcg. Consulted with and had an interactive discussion with poison control whose is not concerned because toxic dose is a minimum of 5000 mcg. Reassuringly, patient remains asymptomatic. Reviewed EKG from triage which I independently interpreted to demonstrate sinus rhythm with intervals within normal limits. Given that she is asymptomatic, will discharge with strict return precautions. She is amenable to the plan and is reliable. All questions answered. Out of an abundance of caution, she will skip her Wellbutrin dose tonight and restart her Synthroid and Wellbutrin tomorrow. Critical Care Critical Care Time Critical Care Time: No
[2025-07-25 10:25] VITALS: BP 152/101; PULSE 101; RESP 18; TEMP 36.9; O2SAT 99; BMI 43.0
--- NOTE | 2025-07-25 10:25 | ECG_ITS ---
APPROVED REPORT Exam: Resting ECG HR:89 bpm ECG Measurements Heart Rate 89 AXES [place] 116 P 5 QRSd 88 QRS 34 QT 354 T 27 QTc 401 Conclusion SINUS RHYTHM WITH SHORT [place] INTERVAL BORDERLINE ECG UNCONFIRMED REPORT Electronically signed by : Mingo Jose, 07/25/2025 16:10:19
--- NOTE | 2025-07-25 10:29 | PC.NURSE ---
I spoke to Alec @ poison Control. He states there is nothing to be done with the amount of medication pt ingested accidentally. She can follow up with her pcp.
--- OUTSIDE RECORDS SUMMARY | 2025-07-25 10:31 | XMS_ITS | Patient Health Record ---
Author Organization [facility] Address [address] [place] [address] Care Team Providers Care Guest Services Lead Name Role Phone Sherly Ramachandran Primary Care [...] 6 = 1 tab orally once a day; Duration: 6 day(s) 03/03/2019 Not-Taking Wellbutrin SR Active Dexbrompheniramine-Pheny leph 2-10 MG 5 ml orally 4 times a day; Duration: 10 days 03/03/2019 Not-Takin g Azithromycin 250 MG 2 tablets on the day, then 1 tablet daily for 4 days orally once a day; Duration: 5 days 03/03/2019 Not-Taking Fluticasone Propionate 50 MCG/ACT 50 mcg intranasally once a day; Duration: 30 day(s) 03/03/2019 Not-Taking Immunizations Vaccine Route Administration Date Status Comme [facility] z2022 FluBLOK Quad PFS (0.5m L Admin) 18 y/o & older Unknown 10/19/2022 Administered Problems Problem Type SNOMED Code ICD Code Onset Dates Problem Status W/U Status Risk Notes Problem Sinusitis (89262323) Sinusitis (J32.9) Active confirmed Plan Of Treatment Pending Test Test Name Order Date Urinalysis (IH) 05/30/2010 Insurance Providers Payer Name Payer Address Payer Phone Subscriber Number Group Number Insured Name Patient Relationship to Insured Coverage Start Date Coverage End Date [facility] [address] [place] [address] [id number] Judit Kelly Self - patient is the insured Medications Administered Medication Instructions Date of Administration Dosage Notes Kenalog 40 (40mg Admin) 05/26/2018 1 mL Medical (General) History Medical History History ICD Code None Surgical History Surgery Date(Month/Year) none Hospitalization History Reason Date(Month/Year) concussion at age 12yrs
--- OUTSIDE RECORDS SUMMARY | 2025-07-25 10:31 | XMS_ITS | Clinical Summary ---
Author Organization [facility] Address [address] [place] [address] Care Team Providers Care Die Designer Name Role Phone Sherly Ramachandran MD Primary Care Provider [phone] Source Comments This information has been disclosed [...] therelease of HIV test results or diagnoses. [id number] Allergies No known active allergies Medications [...] Date Last Done Comments Hepatitis C Screening ([employer]) 1982 Alcohol Misuse Screening 2000 Depression Screening 2000 Immunization: Hepatitis B (1 of 3 - 19+ 3-dose series) 2001 Cervical Cancer Screening/Pap Smear ([employer]) 2012 Mammogram ([employer]) 2022 Diabetes Screening 02/17/2025 02/18/2024 Immunization: COVID-19 ( season) 2025 10/20/2021, 09/18/2021, 03/08/2021, Additional history exists Immunization: Influenza ([employer]) (#1) 2025 01/02/2024, 10/19/2022, 08/14/2021, Additional history exists [...] - 6.0 % Whole Blood Historical Provider LAB BLOOD ORDERABLES Chiqui l Result from Last 3 Months or Most Recently Relevant to Health Maintenance Insurance Care Teams Die Designer Relationship Specialty Start Date End Date Sherly Ramachandran MD [address] [place] [phone] PCP - General Internal Medicine 03/26/24
[2025-07-25 10:42] VITALS: BP 152/98; PULSE 82; RESP 21; TEMP 36.9; O2SAT 98
== END 2025-07-25 10:45 | disposition home or self-care (01) ==
PROVIDERS: Emergency Provider Emergency Medicine; PCP Internal Medicine
DX: T38.1X1A Poisoning by thyroid hormones and substitutes, accidental (unintentional), initial encounter (principal); E03.9 Hypothyroidism, unspecified
CPT/HCPCS: 93005; 99283

== ENCOUNTER 2025-08-09 10:25 | Outpatient (CLI) | payer BC, SELFPAY ==
--- OUTSIDE RECORDS SUMMARY | 2025-08-09 10:34 | XMS_ITS | Clinical Summary ---
Author Organization [facility] Address [address] [place] [address] Care Team Providers Care Scientologist Name Role Phone Sherly Ramachandran MD Primary Care Provider [phone] Source Comments This information has been disclosed [...] therelease of HIV test results or diagnoses. [id number] Allergies No known active allergies Medications [...] Date Last Done Comments Hepatitis C Screening ([employer]) 1982 Alcohol Misuse Screening 2000 Depression Screening 2000 Immunization: Hepatitis B (1 of 3 - 19+ 3-dose series) 2001 Cervical Cancer Screening/Pap Smear ([facility]) 2012 Mammogram ([employer]) 2022 Diabetes Screening 02/17/2025 02/18/2024 Immunization: COVID-19 ( season) 2025 10/20/2021, 09/18/2021, 03/08/2021, Additional history exists Immunization: Influenza ([facility]) (#1) 2025 01/02/2024, 10/19/2022, 08/14/2021, Additional history [...] Most Recently Relevant to Health Maintenance Insurance [facility] Address: [facility] [id number] [place] [address] Care Teams Scientologist Relationship Specialty Start Date End Date Sherly Ramachandran MD [address] [place] [phone] PCP - General Internal Medicine 03/26/24
== END 2025-08-09 23:59 | disposition home or self-care (01) ==
LOC: LAB 10:26
PROVIDERS: PCP Internal Medicine; Visit Provider Family Medicine
DX: N97.9 Female infertility, unspecified (principal)

== ENCOUNTER 2025-08-11 15:31 | Outpatient (CLI) | payer BC, SELFPAY ==
--- OUTSIDE RECORDS SUMMARY | 2025-08-11 15:36 | XMS_ITS | Clinical Summary ---
Author Organization [facility] Address [address] [place] [address] Care Team Providers Care Cloud Engagement Partner Name Role Phone Sherly Ramachandran MD Primary Care Provider Source Comments This information has been disclosed [...] therelease of HIV test results or diagnoses. [id number] Allergies No known active allergies Medications [...] Date Last Done Comments Hepatitis C Screening ([employer]) 1982 Alcohol Misuse Screening 2000 Depression Screening 2000 Immunization: Hepatitis B (1 of 3 - 19+ 3-dose series) 2001 Cervical Cancer Screening/Pap Smear ([employer]) 2012 Mammogram ([employer]) 2022 Diabetes Screening 02/17/2025 02/18/2024 Immunization: COVID-19 ( season) 2025 10/20/2021, 09/18/2021, 03/08/2021, Additional history exists Immunization: Influenza ([employer]) (#1) 07/19/2025 01/02/2024, 10/19/2022, 08/14/2021, Additional history [...] Most Recently Relevant to Health Maintenance Insurance [facility] Address: [facility] [id number] [place] [address] Care Teams Cloud Engagement Partner Relationship Specialty Start Date End Date Sherly Ramachandran MD [address] [place] [phone] PCP - General Internal Medicine 03/26/24
--- OUTSIDE RECORDS SUMMARY | 2025-08-11 15:36 | XMS_ITS | Patient Health Record ---
Author Organization [facility] Address [address] [place] [address] Care Team Providers Care Executive Services Administrator Name Role Phone Sherly Ramachandran Primary Care [...] Immunizations Vaccine Route Administration Date Status Comme [facility] z2022 FluBLOK Quad PFS (0.5m L Admin) 18 y/o & older Unknown 10/19/2022 Administered Problems Problem Type SNOMED Code ICD Code Onset Dates Problem Status W/U Status Risk Notes Problem Sinusitis (34708634) Sinusitis (J32.9) Active confirmed Plan Of Treatment Pending Test Test Name Order Date Urinalysis (IH) 05/30/2010 Insurance Providers Payer Name Payer Address Payer Phone Subscriber Number Group Number Insured Name Patient Relationship to Insured Coverage Start Date Coverage End Date [facility] [address] [place] [address] [id number] Judit Kelly Self - patient is the insured Medications Administered Medication Instructions Date of Administration Dosage Notes Kenalog 40 (40mg Admin) 05/26/2018 1 mL Medical (General) History Medical History History ICD Code None Surgical History Surgery Date(Month/Year) none Hospitalization History Reason Date(Month/Year) concussion at age 12yrs
[2025-08-11 15:47] LABS: dRVVT Confirm ND
[2025-08-13 16:13] LABS: Anti-Cardio Antibody IgM <9 MPL U/mL (0-12); Anti-Cardiolipin Antibody IgG <9 GPL U/mL (0-14); Anticardiolipin Ab,IgA,Qn <9 APL U/mL (0-11); Beta-2 Glycoprotein I Ab, IgA <9 (0-25); Beta-2 Glycoprotein I Ab, IgG <9 (0-20); Beta-2 Glycoprotein I Ab, IgM <9 (0-32)
== END 2025-08-11 23:59 | disposition home or self-care (01) ==
LOC: LAB 15:34
PROVIDERS: PCP Internal Medicine; Visit Provider Obstetrics & Gynecology Reproductive Endocrinology
DX: N96 Recurrent pregnancy loss (principal)
CPT/HCPCS: 36415; 81240; 81241; 83090; 85300; 85301; 85302; 85305; 85306; 85613; 85732; 86038; 86146; 86147; 86148